=== PATIENT | male | born 1945 | race Hispanic/Latino ===

== ENCOUNTER → 2018-03-25 | Outpatient (CLI) | payer MEDICARE ==
[~2018-03-25] MED LIST: AMLO10TA2 PO; ATOR20TA65 PO; CALC667C10 PO; CHOL100040 PO; FOLI1TAB61 PO; INSLAN SQ; LEVO500T2 PO; LINA5TAB PO; LOSA100T29 PO; METO-391 PO; VITA400C70 PO
== END | disposition home or self-care (01) ==
LOC: RAH 08:36
PROVIDERS: ATTEND Internal Medicine
DX: R10.9 Unspecified abdominal pain (principal)
CPT/HCPCS: 74018

== ENCOUNTER → 2018-08-23 | Outpatient (CLI) | payer MEDICARE ==
[~2018-08-23] MED LIST changes: -AMLO10TA2 PO; +AMLO10TA6 PO; +GLIP5TAB11 PO; -LEVO500T2 PO; +LOSA100T20 PO; -LOSA100T29 PO; -VITA400C70 PO
== END | disposition home or self-care (01) ==
LOC: RAH 15:09
PROVIDERS: ATTEND Internal Medicine
DX: S60.222A Contusion of left hand, initial encounter (principal); S80.01XA Contusion of right knee, initial encounter; X58.XXXA Exposure to other specified factors, initial encounter; Y93.89 Activity, other specified; Y92.89 Other specified places as the place of occurrence of the external cause; Y99.8 Other external cause status
CPT/HCPCS: 73130; 73562

== ENCOUNTER 2018-09-02 18:20 | Observation (INO) | payer MEDICARE ==
[~2018-09-02] VITALS: Ht 152.4 cm; Wt 66.5 kg
[2018-09-02 20:27] LABS: BASOPHILS % (AUTO) 2.5 % (0.0-5.0); EOSINOPHILS % (AUTO) 8.1 % (0.0-8.0); MEAN CORPUSCULAR HEMOGLOBIN 29.5 pg (27.0-33.0); MEAN CORPUSCULAR HGB CONC 32.7 g/dL (32.0-36.0); MEAN CORPUSCULAR VOLUME 90.2 fL (79-99); MONOCYTES % (AUTO) 4.9 % (3.0-13.0); NEUTROPHILS % (AUTO) 71.5 % (40.0-77.0); NUCLEATED RED BLOOD CELLS 0.1 % (0.0-0.19); PLATELET COUNT (AUTO) 152 K/uL (130-400); RED BLOOD CELL COUNT(AUTO) 3.66 MIL/uL (4.50-6.20); RED CELL DISTRIBUTION WIDTH 16.1 % (11.0-15.5); WHITE BLOOD COUNT (AUTO) 8.9 K/uL (4.8-10.8)
[2018-09-02 20:52] LABS: ALBUMIN 4.1 g/dL (3.5-5.0); BILIRUBIN,TOTAL 0.5 mg/dL (0.2-1.0); POTASSIUM 5.1 mmol/L (3.5-5.1); TOTAL PROTEIN, SERUM 8.5 g/dL (6.0-8.3)
[2018-09-02 20:55] LABS: CREATININE 8.1 mg/dL (0.5-1.5)
[2018-09-02 20:59] LABS: CREATINE KINASE, TOTAL 61 U/L (21-232); MYOGLOBIN 308 ng/mL (10-92); TROPONIN I < 0.04 ng/mL (0.00-0.06)
[2018-09-02] MEDS ORDERED: GLUCAGON 1MG KIT 1 MG ML IM PRN ×2 (22:00→23:45)
[2018-09-02] MEDS ORDERED: DEXTROSE 50%-WATER 50 ML DISP.SYRIN IV PRN ×2 (22:00→23:45)
[2018-09-02 22:16] LABS: HEMOGLOBIN A1C 5.5 % (4.0-6.0)
[2018-09-02] MEDS ORDERED: ACETAMINOPHEN 325 MG TAB PO PRN (23:45)
[2018-09-02] MEDS ORDERED: ONDANSETRON HCL MDV 20ML 2 MG/ML VIAL IVP PRN (23:45)
[2018-09-03] MEDS ORDERED: INSULIN R NPO SS1/2 SQ SCH
[2018-09-03] MEDS ORDERED: DEXTROSE 50%-WATER 50 ML DISP.SYRIN IV ONE (02:17)
[2018-09-03 03:40] VITALS: BP 179/92
[2018-09-03 05:47] LABS: BASOPHILS % (AUTO) 0.7 % (0.0-5.0); EOSINOPHILS % (AUTO) 12.4 % (0.0-8.0); HEMATOCRIT 29.5 % (42-54); LYMPHOCYTES % (AUTO) 28.5 % (21.0-51.0); MEAN CORPUSCULAR HEMOGLOBIN 30.7 pg (27.0-33.0); MEAN CORPUSCULAR HGB CONC 33.8 g/dL (32.0-36.0); MEAN CORPUSCULAR VOLUME 90.8 fL (79-99); MONOCYTES % (AUTO) 8.4 % (3.0-13.0); PLATELET COUNT (AUTO) 154 K/uL (130-400); RED BLOOD CELL COUNT(AUTO) 3.24 MIL/uL (4.50-6.20); RED CELL DISTRIBUTION WIDTH 15.8 % (11.0-15.5); WHITE BLOOD COUNT (AUTO) 8.3 K/uL (4.8-10.8)
[2018-09-03 06:11] LABS: ALBUMIN 3.5 g/dL (3.5-5.0); BILIRUBIN,TOTAL 0.4 mg/dL (0.2-1.0); POTASSIUM 5.2 mmol/L (3.5-5.1); TOTAL PROTEIN, SERUM 7.6 g/dL (6.0-8.3)
[2018-09-03 06:32] LABS: CREATININE 9.1 mg/dL (0.5-1.5)
[2018-09-03] MEDS: INSULIN R NPO SS1/2 SQ SCH ×4 (07:02→20:00)
[2018-09-03 08:00] VITALS: BP 165/79
[2018-09-03] MEDS ORDERED: PANTOPRAZOLE SODIUM 40 MG TABLET.DR PO SCH (09:00)
[2018-09-03] MEDS ORDERED: ENOXAPARIN SODIUM 30 MG/0.3 ML SQ SCH (09:00)
[2018-09-03 12:00] VITALS: BP 188/95
[2018-09-03] MEDS: CALCIUM ACETATE 667 MG CAPSULE PO SCH ×2 (12:00→21:45)
[2018-09-03 16:00] VITALS: BP 189/70
[2018-09-03 20:11] VITALS: BP 167/78
[2018-09-03] MEDS ORDERED: ATORVASTATIN CALCIUM 20 MG TABLET PO SCH (21:00)
[2018-09-04] MEDS ORDERED: LINAGLIPTIN 5 MG TABLET PO SCH (09:00)
[2018-09-04] MEDS ORDERED: AMLODIPINE BESYLATE 5 MG TAB PO SCH (09:00)
[2018-09-04] MEDS ORDERED: LOSARTAN 100 MG TABLET PO SCH (09:00)
[2018-09-04] MEDS ORDERED: FOLIC ACID/VITAMIN B COMP W-C 1 MG CAPSULE PO SCH (09:00)
[2018-09-04] MEDS ORDERED: **HM** VIT D3 1000 UNITS PO SCH (09:00)
[2018-09-04] MEDS ORDERED: METOPROLOL TARTRATE 25 MG TAB PO SCH (09:00)
== END 2018-09-03 21:55 | disposition home or self-care (01) ==
LOC: EDH 18:20 → EDHIP 21:55 → UNDOADMOB 21:55 → EDHIP 23:15 → 3DH 09-03 00:52
PROVIDERS: ADMIT Internal Medicine Critical Care Medicine; ATTEND Internal Medicine Critical Care Medicine
DX: E16.2 Hypoglycemia, unspecified (principal); I12.0 Hypertensive chronic kidney disease with stage 5 chronic kidney disease or end stage renal disease; N18.6 End stage renal disease; Z99.2 Dependence on renal dialysis
CPT/HCPCS: 36415 ×2; 80053 ×2; 82550; 82948 ×8; 83036; 83874; 84484; 85025 ×2; 93005; 96372; 99284; G0257; G0378 ×23; J1815; J7070; 90935

== ENCOUNTER 2018-11-01 19:37 | Inpatient (IN) | payer MEDICARE ==
[~2018-11-01] VITALS: Ht 152.4 cm; Wt 61.8 kg
[~2018-11-01 19:37] MED LIST changes: -AMLO10TA6 PO; +AMLO10TA7 PO; -GLIP5TAB11 PO; -INSLAN SQ; -LOSA100T20 PO; +LOSA100T58 PO
[2018-11-01 20:16] LABS: BASOPHILS % (AUTO) 0.2 % (0.0-5.0); EOSINOPHILS % (AUTO) 0.5 % (0.0-8.0); HEMATOCRIT 30.4 % (42-54); LYMPHOCYTES % (AUTO) 3.9 % (21.0-51.0); MEAN CORPUSCULAR HEMOGLOBIN 30.2 pg (27.0-33.0); MEAN CORPUSCULAR HGB CONC 32.5 g/dL (32.0-36.0); MEAN CORPUSCULAR VOLUME 92.9 fL (79-99); MONOCYTES % (AUTO) 0.8 % (3.0-13.0); NEUTROPHILS % (AUTO) 94.6 % (40.0-77.0); PLATELET COUNT (AUTO) 210 K/uL (130-400); RED BLOOD CELL COUNT(AUTO) 3.28 MIL/uL (4.50-6.20); RED CELL DISTRIBUTION WIDTH 17.6 % (11.0-15.5); WHITE BLOOD COUNT (AUTO) 13.7 K/uL (4.8-10.8)
[2018-11-01 20:27] LABS: INR 0.96 (0.85-1.15); PARTIAL THROMBOPLASTIN TIME 27.8 SEC (26.3-35.5); PROTHROMBIN TIME 10.1 SEC (9.6-11.6)
[2018-11-01 20:51] LABS: ALANINE AMINOTRANSFERASE 33 U/L (12-78); ALBUMIN 3.8 g/dL (3.5-5.0); ASPARTATE AMINOTRANSFERASE 43 U/L (10-37); BILIRUBIN,TOTAL 0.6 mg/dL (0.2-1.0); CARBON DIOXIDE 24 mmol/L (21-32); CHLORIDE 93 mmol/L (101-111); CREATINE KINASE, TOTAL 140 U/L (21-232); CREATININE 6.7 mg/dL (0.5-1.5); GLOMERULAR FILTR. RATE CALC 9 mL/min (>60); MYOGLOBIN 421 ng/mL (10-92); POTASSIUM 5.8 mmol/L (3.5-5.1); SODIUM SERUM 132 mmol/L (136-145); TOTAL PROTEIN, SERUM 8.1 g/dL (6.0-8.3); TROPONIN I < 0.04 ng/mL (0.00-0.06); UREA NITROGEN, BLOOD 34 mg/dL (7-18)
[2018-11-01 21:04] LABS: GLUCOSE,RANDOM 487 mg/dL (70-105)
[2018-11-01] MEDS ORDERED: INSULIN HUMULIN R 100 UNIT/ML 3ML ONE (21:27)
[2018-11-01] MEDS ORDERED: ZOSYN 3.375GM+NS 50ML 50 ML IV ONE (23:20)
[2018-11-01] MEDS ORDERED: VANCOMYCIN 1GM+NS 250ML 500 ML IV ONE (23:48)
[2018-11-02] VITALS (7 sets, daily range): BP systolic 102–175; BP diastolic 59–91
--- NOTE | 2018-11-02 00:15 | NUR ---
Patient arrived on unit. Denies chest pain. No longer feeling sob with use of 2L NC. Per orders patient is to have HD in am. [facility] ED nurse stated dialysis nurse is aware. Consent signed. Oriented patient and wfe to the room. Call light within reach. IV Vanco running. Fistula to REMA- thrill present. Patient has a non productive cough.
[2018-11-02] MEDS ORDERED: VANCOMYCIN PROTOCOL PER PHARMACY IV SCH (01:30)
[2018-11-02] MEDS ORDERED: ACETAMINOPHEN 325 MG TAB PO PRN ×2 (01:45→12:30)
[2018-11-02] MEDS ORDERED: VANCOMYCIN 1.5 GM in SODIUM CHLORIDE 0.9% 250 ML IV SCH (01:45)
[2018-11-02] MEDS ORDERED: GLUCAGON 1MG KIT 1 MG ML IM PRN (01:45)
[2018-11-02] MEDS ORDERED: DEXTROSE 50%-WATER 50 ML DISP.SYRIN IV PRN (01:45)
[2018-11-02] MEDS ORDERED: ONDANSETRON HCL MDV 20ML 2 MG/ML VIAL IVP PRN (01:45)
[2018-11-02] MEDS: ZOSYN 3.375GM+NS 50ML 50 ML IV SCH ×2 (02:00→14:36)
[2018-11-02] MEDS: INSULIN R PO SS1/2 SQ SCH ×4 (06:15→21:18)
[2018-11-02] MEDS: ENOXAPARIN SODIUM 30 MG/0.3 ML SQ SCH ×2 (09:00→12:26)
[2018-11-02] MEDS: FAMOTIDINE/PF 20 MG/2 ML VIAL IV SCH ×2 (09:00→12:26)
--- NOTE | 2018-11-02 09:10 | NUR ---
RESTING IN BED WITH HOB AT 30 DEGREES, RESP.'S EVEN AND UNLABORED. AAOX3. DENIES ANY CURRENT SOB, DENIES ANY CURRENT PAIN. RECEIVING HD AT PRESENT TIMED. CALL LIGHT WITHIN REACH. SPOUSE AT BEDSIDE.
--- NOTE | 2018-11-02 10:45 | NUR ---
HD COMPLETED. TOLERATED W/O C/O. CALL LIGHT WITHIN REACH. SPOUSE AT BEDSIDE.
[2018-11-02] MEDS ORDERED: SODIUM CHLORIDE 0.9% 1000ML 1,000 ML IV PRN (12:15)
[2018-11-02] MEDS ORDERED: LIDOCAINE HCL 1% 10 ML VIAL MISC SCH (12:15)
[2018-11-02] MEDS ORDERED: 0.9% SODIUM CHLORIDE 250 ML IV BAG IV PRN (12:15)
[2018-11-02] MEDS: CALCIUM ACETATE 667 MG CAPSULE PO SCH ×2 (15:13→20:38)
--- NOTE | 2018-11-02 15:14 | NUR ---
DC PLAN VISITED WITH PATIENT. PATIENT LIVES WITH SPOUSE. INDEPENDENT ABLE TO PERFORM ADL'S. PROVIDER 8 HOURS A DAY. PATIENT HAS NO DME'S. FEELS SAFE TO RETURN HOME. Addendum: 11/02/18 at 1515 by YOUNG CALLAHAN RN CM Amended: Links added.
--- NOTE | 2018-11-02 15:30 | NUR ---
RESTING IN BED WATCHING TELEVISION. SPOUSE AT BEDSIDE. CALL LIGHT WITHIN PT.'S REACH.
[2018-11-02] MEDS ORDERED: VANCOMYCIN 1GM+NS 250ML 250 ML IV SCH ×2 (18:00→19:10)
[2018-11-02] MEDS: ATORVASTATIN CALCIUM 20 MG TABLET PO SCH (20:38)
[2018-11-02] MEDS: METOPROLOL TARTRATE 25 MG TAB PO SCH (20:38)
[2018-11-03] MEDS: ZOSYN 3.375GM+NS 50ML 50 ML IV SCH ×2 (01:51→14:00)
[2018-11-03 03:00] VITALS: BP 165/84
[2018-11-03 03:39] LABS: HEMATOCRIT 29.2 % (42-54); MEAN CORPUSCULAR HEMOGLOBIN 30.7 pg (27.0-33.0); MEAN CORPUSCULAR HGB CONC 33.4 g/dL (32.0-36.0); MEAN CORPUSCULAR VOLUME 91.9 fL (79-99); PLATELET COUNT (AUTO) 176 K/uL (130-400); RED BLOOD CELL COUNT(AUTO) 3.17 MIL/uL (4.50-6.20); RED CELL DISTRIBUTION WIDTH 17.5 % (11.0-15.5); WHITE BLOOD COUNT (AUTO) 10.2 K/uL (4.8-10.8)
[2018-11-03 03:45] LABS: EOSINOPHILS % (MANUAL) 3 % (1-6); LYMPHOCYTES % (MANUAL) 29 % (22-44); MAN.DIFF COMMENT-IMPRESSION MANUAL DIFFERENTIAL; MONOCYTES % (MANUAL) 7 % (2-9); PLATELET MORPHOLOGY COMMENT ADEQUATE; SEGMENTED NEUTROPHILS % 61 % (40-70)
[2018-11-03 03:55] LABS: CREATININE 6.1 mg/dL (0.5-1.5); PHOSPHORUS 3.9 mg/dL (2.5-4.9); POTASSIUM 3.5 mmol/L (3.5-5.1)
[2018-11-03] MEDS: INSULIN R PO SS1/2 SQ SCH ×4 (05:34→20:38)
[2018-11-03 07:34] VITALS: BP 164/76
[2018-11-03] MEDS: FAMOTIDINE/PF 20 MG/2 ML VIAL IV SCH (09:00)
[2018-11-03] MEDS: LINAGLIPTIN 5 MG TABLET PO SCH (09:00)
[2018-11-03] MEDS: ENOXAPARIN SODIUM 30 MG/0.3 ML SQ SCH ×2 (09:00→17:08)
[2018-11-03] MEDS: CALCIUM ACETATE 667 MG CAPSULE PO SCH ×3 (09:00→20:02)
[2018-11-03] MEDS: AMLODIPINE BESYLATE 5 MG TAB PO SCH (09:00)
[2018-11-03] MEDS: LOSARTAN 100 MG TABLET PO SCH ×2 (09:00→17:07)
[2018-11-03] MEDS: FOLIC ACID/VITAMIN B COMP W-C 1 MG CAPSULE PO SCH (09:00)
[2018-11-03] MEDS: ***HM***(Cholecalciferol (Vitamin D3) (Vitamin D3) 1,000 UNIT) PO SCH (09:00)
[2018-11-03] MEDS: METOPROLOL TARTRATE 25 MG TAB PO SCH ×2 (09:00→20:02)
--- NOTE | 2018-11-03 09:00 | NUR ---
RESTING IN BED WITH HOB AT 30 DEGREES, RESP.'S EVEN AND UNLABORED. AAOX3, DENIES ANY CURRENT SOB, DENIES ANY CURRENT PAIN. STATES FEELING "BETTER TODAY." SPOUSE AT BEDSIDE STATES," HE EVEN WENT TO THE RESTROOM BY HIMSELF EARLIER AND WAS DANCING RIGHT HERE [POINTS TO AREA IN FRONT OF BED-SAMMARINESE]." COMPLETE ASSESSMENT DONE. CALL LIGHT WITHIN REACH, VERBALIZED ABILITY TO USE. BED LOW, SIDE RAILS UP X2.
[2018-11-03 09:03] LABS: APPEARANCE,URINE Cloudy (CLEAR); BILIRUBIN,URINE Negative (NEGATIVE); COLOR,URINE Dark Yellow (YELLOW); GLUCOSE, URINE (UA) 500 mg/dL (NEGATIVE); KETONES,URINE Trace mg/dL (NEGATIVE); LEUKOCYTE ESTERASE ,URINE Trace (NEGATIVE); NITRATE,URINE Negative (NEGATIVE); OCCULT BLOOD,URINE Trace (NEGATIVE); PH,URINE >=9.0 (5.0-8.0); PROTEIN,URINE >=1000 (NEGATIVE)
[2018-11-03 09:27] LABS: BACTERIA,URINE Rare /HPF (None Seen); RBC,URINE 0-1 /HPF (0-1); SQUAMOUS EPITHELIAL CELL,UR Rare /HPF (0-2); WBC,URINE 0-1 /HPF (0-1)
[2018-11-03 11:29] VITALS: BP 161/92
--- NOTE | 2018-11-03 13:05 | NUR ---
DR. BERRIOS IN ROOM SPEAKING WITH PT. AND PT.'S SPOUSE AT BEDSIDE RE:PLAN OF CARE.
--- NOTE | 2018-11-03 14:30 | NUR ---
RECEIVING HD. TOLERATING W/O C/O. SPOUSE AT BEDSIDE.
[2018-11-03 16:16] VITALS: BP 141/74
--- NOTE | 2018-11-03 16:25 | NUR ---
HD COMPLETED. TOLERATED W/O C/O. CALL LIGHT WITHIN REACH. SPOUSE AT BEDSIDE.
[2018-11-03] MEDS: GUAIFENESIN SUGAR-FREE 100 MG/5 ML UDCUP PO PRN (17:06)
[2018-11-03 19:00] VITALS: BP 160/81
[2018-11-03] MEDS: ATORVASTATIN CALCIUM 20 MG TABLET PO SCH (20:02)
[2018-11-03] MEDS ORDERED: EPOETIN ALFA 10,000 UNIT/ML VIAL SQ SCH (21:00)
[2018-11-03 23:00] VITALS: BP 141/78
[2018-11-04] VITALS (7 sets, daily range): BP systolic 158–172; BP diastolic 66–91
[2018-11-04] MEDS: ZOSYN 3.375GM+NS 50ML 50 ML IV SCH ×2 (02:39→13:41)
[2018-11-04 03:35] LABS: HEMATOCRIT 30.1 % (42-54); MEAN CORPUSCULAR HEMOGLOBIN 30.9 pg (27.0-33.0); MEAN CORPUSCULAR HGB CONC 33.5 g/dL (32.0-36.0); MEAN CORPUSCULAR VOLUME 92.1 fL (79-99); NUCLEATED RED BLOOD CELLS 0.1 % (0.0-0.19); PLATELET COUNT (AUTO) 200 K/uL (130-400); RED BLOOD CELL COUNT(AUTO) 3.26 MIL/uL (4.50-6.20); RED CELL DISTRIBUTION WIDTH 16.7 % (11.0-15.5); WHITE BLOOD COUNT (AUTO) 9.8 K/uL (4.8-10.8)
[2018-11-04 03:51] LABS: PHOSPHORUS 2.9 mg/dL (2.5-4.9); POTASSIUM 3.7 mmol/L (3.5-5.1)
[2018-11-04] MEDS: INSULIN R PO SS1/2 SQ SCH ×4 (06:09→21:00)
[2018-11-04] MEDS: ***HM***(Cholecalciferol (Vitamin D3) (Vitamin D3) 1,000 UNIT) PO SCH (09:00)
[2018-11-04] MEDS: LOSARTAN 100 MG TABLET PO SCH (10:59)
[2018-11-04] MEDS: AMLODIPINE BESYLATE 5 MG TAB PO SCH (10:59)
[2018-11-04] MEDS: FAMOTIDINE/PF 20 MG/2 ML VIAL IV SCH (10:59)
[2018-11-04] MEDS: CALCIUM ACETATE 667 MG CAPSULE PO SCH ×3 (11:00→21:11)
[2018-11-04] MEDS: LINAGLIPTIN 5 MG TABLET PO SCH (11:01)
[2018-11-04] MEDS: ENOXAPARIN SODIUM 30 MG/0.3 ML SQ SCH (11:01)
[2018-11-04] MEDS: FOLIC ACID/VITAMIN B COMP W-C 1 MG CAPSULE PO SCH (11:01)
[2018-11-04] MEDS: METOPROLOL TARTRATE 25 MG TAB PO SCH ×2 (11:01→21:11)
[2018-11-04] MEDS: ATORVASTATIN CALCIUM 20 MG TABLET PO SCH (21:11)
[2018-11-04] MEDS: GUAIFENESIN SUGAR-FREE 100 MG/5 ML UDCUP PO PRN (21:15)
[2018-11-05] MEDS: ZOSYN 3.375GM+NS 50ML 50 ML IV SCH ×2 (02:41→14:51)
[2018-11-05 03:33] VITALS: BP 163/84
[2018-11-05 03:58] LABS: EOSINOPHILS % (AUTO) 5.7 % (0.0-8.0); HEMATOCRIT 31.8 % (42-54); LYMPHOCYTES % (AUTO) 26.2 % (21.0-51.0); MEAN CORPUSCULAR HEMOGLOBIN 31.9 pg (27.0-33.0); MEAN CORPUSCULAR HGB CONC 34.4 g/dL (32.0-36.0); MEAN CORPUSCULAR VOLUME 92.6 fL (79-99); MONOCYTES % (AUTO) 12.6 % (3.0-13.0); NEUTROPHILS % (AUTO) 54.5 % (40.0-77.0); NUCLEATED RED BLOOD CELLS 0.1 % (0.0-0.19); PLATELET COUNT (AUTO) 200 K/uL (130-400); RED BLOOD CELL COUNT(AUTO) 3.44 MIL/uL (4.50-6.20); RED CELL DISTRIBUTION WIDTH 17.1 % (11.0-15.5); WHITE BLOOD COUNT (AUTO) 9.3 K/uL (4.8-10.8)
[2018-11-05 04:18] LABS: CREATININE 7.3 mg/dL (0.5-1.5); POTASSIUM 4.1 mmol/L (3.5-5.1)
[2018-11-05] MEDS: INSULIN R PO SS1/2 SQ SCH ×4 (07:30→21:00)
[2018-11-05 07:43] VITALS: BP 189/87
[2018-11-05] MEDS: CALCIUM ACETATE 667 MG CAPSULE PO SCH ×3 (07:50→17:03)
[2018-11-05] MEDS: ***HM***(Cholecalciferol (Vitamin D3) (Vitamin D3) 1,000 UNIT) PO SCH (09:00)
[2018-11-05] MEDS: FOLIC ACID/VITAMIN B COMP W-C 1 MG CAPSULE PO SCH (10:04)
[2018-11-05] MEDS: FAMOTIDINE/PF 20 MG/2 ML VIAL IV SCH (10:04)
[2018-11-05] MEDS: ENOXAPARIN SODIUM 30 MG/0.3 ML SQ SCH (10:05)
[2018-11-05 11:22] VITALS: BP 183/89
[2018-11-05] MEDS: REGADENOSON 0.4 MG/5 ML PF SYG IVP SCH ×2 (12:30→15:17)
[2018-11-05] MEDS: LOSARTAN 100 MG TABLET PO SCH (14:50)
[2018-11-05] MEDS: LINAGLIPTIN 5 MG TABLET PO SCH (14:50)
[2018-11-05] MEDS: AMLODIPINE BESYLATE 5 MG TAB PO SCH (14:51)
[2018-11-05] MEDS: METOPROLOL TARTRATE 25 MG TAB PO SCH ×2 (14:51→21:35)
[2018-11-05 16:21] VITALS: BP 154/72
[2018-11-05] MEDS ORDERED: VANCOMYCIN 1GM+NS 250ML 250 ML IV SCH (18:00)
[2018-11-05 19:00] VITALS: BP 166/84
[2018-11-05] MEDS: ATORVASTATIN CALCIUM 20 MG TABLET PO SCH (21:35)
--- NOTE | 2018-11-05 21:36 | NUR ---
Patient received Dialysis. 2.5 L off. Tolerated well.
[2018-11-05 23:00] VITALS: BP 136/65
--- NOTE | 2018-11-06 02:39 | NUR ---
Patient receiving IV antibiotics. Denies N/V/D. Alert and oriented. No chest pain or sob. IV flushing well. L arm fistula CDI, No oozing.
[2018-11-06] MEDS: ZOSYN 3.375GM+NS 50ML 50 ML IV SCH ×2 (02:53→14:12)
[2018-11-06 03:00] VITALS: BP 176/86
[2018-11-06 03:43] LABS: HEMATOCRIT 30.7 % (42-54); MEAN CORPUSCULAR HEMOGLOBIN 30.8 pg (27.0-33.0); MEAN CORPUSCULAR VOLUME 93.4 fL (79-99); PLATELET COUNT (AUTO) 208 K/uL (130-400); RED BLOOD CELL COUNT(AUTO) 3.29 MIL/uL (4.50-6.20); RED CELL DISTRIBUTION WIDTH 16.6 % (11.0-15.5); WHITE BLOOD COUNT (AUTO) 9.9 K/uL (4.8-10.8)
[2018-11-06 03:53] LABS: ALBUMIN 3.2 g/dL (3.5-5.0); BILIRUBIN,TOTAL 0.5 mg/dL (0.2-1.0); CREATININE 5.4 mg/dL (0.5-1.5); POTASSIUM 3.5 mmol/L (3.5-5.1); TOTAL PROTEIN, SERUM 7.2 g/dL (6.0-8.3); URIC ACID 3.1 mg/dL (2.6-7.2)
[2018-11-06 05:08] VITALS: BP 168/79
[2018-11-06] MEDS: INSULIN R PO SS1/2 SQ SCH ×4 (06:11→21:00)
[2018-11-06 07:39] VITALS: BP 164/74
[2018-11-06] MEDS: CALCIUM ACETATE 667 MG CAPSULE PO SCH ×3 (08:03→16:55)
[2018-11-06] MEDS: ***HM***(Cholecalciferol (Vitamin D3) (Vitamin D3) 1,000 UNIT) PO SCH (09:00)
[2018-11-06] MEDS: AMLODIPINE BESYLATE 5 MG TAB PO SCH (09:11)
[2018-11-06] MEDS: LINAGLIPTIN 5 MG TABLET PO SCH (09:11)
[2018-11-06] MEDS: ENOXAPARIN SODIUM 30 MG/0.3 ML SQ SCH (09:11)
[2018-11-06] MEDS: FOLIC ACID/VITAMIN B COMP W-C 1 MG CAPSULE PO SCH (09:11)
[2018-11-06] MEDS: METOPROLOL TARTRATE 25 MG TAB PO SCH ×2 (09:11→20:33)
[2018-11-06] MEDS: LOSARTAN 100 MG TABLET PO SCH (09:11)
[2018-11-06] MEDS: FAMOTIDINE/PF 20 MG/2 ML VIAL IV SCH (09:11)
[2018-11-06 11:17] VITALS: BP 166/81
[2018-11-06 16:23] VITALS: BP 171/76
[2018-11-06] MEDS: ATORVASTATIN CALCIUM 20 MG TABLET PO SCH (20:33)
[2018-11-06 23:39] VITALS: BP 162/87
[2018-11-07] MEDS: ZOSYN 3.375GM+NS 50ML 50 ML IV SCH ×2 (01:40→13:13)
[2018-11-07 03:44] LABS: MEAN CORPUSCULAR HEMOGLOBIN 31.3 pg (27.0-33.0); MEAN CORPUSCULAR HGB CONC 33.5 g/dL (32.0-36.0); MEAN CORPUSCULAR VOLUME 93.3 fL (79-99); NUCLEATED RED BLOOD CELLS 0.1 % (0.0-0.19); PLATELET COUNT (AUTO) 208 K/uL (130-400); RED BLOOD CELL COUNT(AUTO) 3.32 MIL/uL (4.50-6.20); RED CELL DISTRIBUTION WIDTH 17.5 % (11.0-15.5); WHITE BLOOD COUNT (AUTO) 10.8 K/uL (4.8-10.8)
[2018-11-07 03:52] VITALS: BP 169/79
[2018-11-07 03:57] LABS: HEMOGLOBIN A1C 7.4 % (4.0-6.0)
[2018-11-07 04:07] LABS: POTASSIUM 3.5 mmol/L (3.5-5.1)
[2018-11-07 04:11] LABS: CREATININE 8.3 mg/dL (0.5-1.5)
[2018-11-07] MEDS: INSULIN R PO SS1/2 SQ SCH ×3 (07:30→16:30)
[2018-11-07 07:39] VITALS: BP 180/89
[2018-11-07] MEDS: CALCIUM ACETATE 667 MG CAPSULE PO SCH ×3 (08:00→17:00)
[2018-11-07] MEDS: AMLODIPINE BESYLATE 5 MG TAB PO SCH (08:37)
[2018-11-07] MEDS: LINAGLIPTIN 5 MG TABLET PO SCH (08:37)
[2018-11-07] MEDS: FAMOTIDINE/PF 20 MG/2 ML VIAL IV SCH (08:37)
[2018-11-07] MEDS: METOPROLOL TARTRATE 25 MG TAB PO SCH (08:37)
[2018-11-07] MEDS: LOSARTAN 100 MG TABLET PO SCH (08:37)
[2018-11-07] MEDS: FOLIC ACID/VITAMIN B COMP W-C 1 MG CAPSULE PO SCH (08:37)
[2018-11-07] MEDS: ENOXAPARIN SODIUM 30 MG/0.3 ML SQ SCH (08:38)
[2018-11-07] MEDS: ***HM***(Cholecalciferol (Vitamin D3) (Vitamin D3) 1,000 UNIT) PO SCH (08:40)
[2018-11-07] MEDS ORDERED: ASPIRIN 81 MG EC TAB PO SCH (09:00)
[2018-11-07 12:00] VITALS: BP 178/74
[2018-11-07] MEDS ORDERED: AMLODIPINE BESYLATE 5 MG TAB PO SCH (12:08)
--- NOTE | 2018-11-07 14:20 | NUR ---
DR. BERRIOS IN ROOM SPEAKING WITH PT. AND PT.'S SPOUSE AT BEDSIDE EXPLAINING PLAN OF CARE, THIS NURSE SPINE SURGEON. ALL QUESTIONS ANSWERED, PT. AND SPOUSE VERBALIZED MUTUAL UNDERSTANDING.
[2018-11-07] MEDS ORDERED: ASPI-555 PO (14:31)
[2018-11-07] MEDS ORDERED: LEVO500T2 PO (14:31)
--- NOTE | 2018-11-07 14:34 | NUR ---
DR. Adriana BUCKLEY IN ROOM SPEAKING WITH PT. AND PT.'S SPOUSE AT BEDSIDE EXPLAINING PLAN OF CARE. ALL QUESTIONS ANSWERED, PT. AND SPOUSE AT BEDSIDE VERBALIZED MUTUAL UNDERSTANDING.
[2018-11-07 15:04] VITALS: BP 157/92
--- NOTE | 2018-11-07 16:35 | NUR ---
HL REMOVED, CATHETER INTACT. EXTENSIVE DISCHARGE INSTRUCTIONS GIVEN TO PT. AND PT.'S SPOUSE AT BEDSIDE, ALL QUESTIONS ANSWERED AND VERBALIZED MUTUAL UNDERSTANDING.
[2018-11-08] MEDS ORDERED: AMLODIPINE BESYLATE 5 MG TAB PO SCH (09:00)
== END 2018-11-07 17:24 | disposition home or self-care (01) | DRG 280 ==
LOC: EDH 19:37 → EDHIP 23:05 → 2AH 11-02 00:18
PROVIDERS: ADMIT Internal Medicine Nephrology; ATTEND Internal Medicine Nephrology
PROC: 5A1D70Z Performance of Urinary Filtration, Intermittent, Less than 6 Hours Per Day (ICD-10-PCS; principal; 2018-11-02)
PROC: 5A1D70Z Performance of Urinary Filtration, Intermittent, Less than 6 Hours Per Day (ICD-10-PCS; 2018-11-03)
PROC: 5A1D70Z Performance of Urinary Filtration, Intermittent, Less than 6 Hours Per Day (ICD-10-PCS; 2018-11-05)
DX: I21.9 Acute myocardial infarction, unspecified (principal); J18.1 Lobar pneumonia, unspecified organism; I50.23 Acute on chronic systolic (congestive) heart failure; N18.6 End stage renal disease; I12.0 Hypertensive chronic kidney disease with stage 5 chronic kidney disease or end stage renal disease; I42.9 Cardiomyopathy, unspecified; I13.2 Hypertensive heart and chronic kidney disease with heart failure and with stage 5 chronic kidney disease, or end stage renal disease; E11.22 Type 2 diabetes mellitus with diabetic chronic kidney disease; Z87.01 Personal history of pneumonia (recurrent); D64.9 Anemia, unspecified; E78.5 Hyperlipidemia, unspecified; E11.21 Type 2 diabetes mellitus with diabetic nephropathy; E11.51 Type 2 diabetes mellitus with diabetic peripheral angiopathy without gangrene; E87.5 Hyperkalemia; C61 Malignant neoplasm of prostate; F41.9 Anxiety disorder, unspecified; I25.10 Atherosclerotic heart disease of native coronary artery without angina pectoris; I25.5 Ischemic cardiomyopathy; I44.7 Left bundle-branch block, unspecified; I25.2 Old myocardial infarction; Z99.2 Dependence on renal dialysis; Z87.891 Personal history of nicotine dependence; Z83.3 Family history of diabetes mellitus
CPT/HCPCS: 36415; 71045; 78452; 80048; 80053; 80061; 80202; 81001; 82550; 82948; 83036; 83605; 83874; 84100; 84484; 84550; 85025; 85027; 85610; 85730; 87040; 87088; 90935; 93005; 93017; 93306; 96374; 97039; A9500; G0378; J0885; J1650; J1815; J2543; J2785; J3370; J3490; J7030

== ENCOUNTER 2018-12-05 05:30 | Day surgery (SDC) | payer MEDICARE ==
[2018-12-02 12:23] LABS: BASOPHILS % (AUTO) 0.5 % (0.0-5.0); MEAN CORPUSCULAR VOLUME 94.9 fL (79-99); WHITE BLOOD COUNT (AUTO) 9.8 K/uL (4.8-10.8)
[2018-12-02 12:25] LABS: BILIRUBIN,URINE NEGATIVE (NEGATIVE); COLOR,URINE YELLOW (YELLOW); GLUCOSE, URINE (UA) 250 mg/dL (NEGATIVE); KETONES,URINE NEGATIVE (NEGATIVE); LEUKOCYTE ESTERASE ,URINE SMALL (NEGATIVE); NITRATE,URINE NEGATIVE (NEGATIVE); OCCULT BLOOD,URINE SMALL (NEGATIVE); PH,URINE >=9.0 (5.0-8.0); PROTEIN,URINE >=300 (NEGATIVE); UROBILINOGEN,URINE 0.2 mg/dL (0.2-1.0)
[2018-12-02 12:29] VITALS: BP 186/78
[2018-12-02 12:38] LABS: INR 0.91 (0.85-1.15); PARTIAL THROMBOPLASTIN TIME 28.9 SEC (26.3-35.5); PROTHROMBIN TIME 9.6 SEC (9.6-11.6)
[2018-12-02 12:43] LABS: POTASSIUM 6.6 mmol/L (3.5-5.1)
[2018-12-02 12:46] LABS: CREATININE 8.4 mg/dL (0.5-1.5)
[2018-12-02 12:53] LABS: APPEARANCE,URINE SLIGHTLY CLOUDY (CLEAR)
[2018-12-02 12:53] LABS: EOSINOPHILS % (AUTO) 9.1 % (0.0-8.0); LYMPHOCYTES % (AUTO) 30.2 % (21.0-51.0); MEAN CORPUSCULAR HGB CONC 32.7 g/dL (32.0-36.0); MONOCYTES % (AUTO) 6.9 % (3.0-13.0); NEUTROPHILS % (AUTO) 53.3 % (40.0-77.0); PLATELET COUNT (AUTO) 141 K/uL (130-400); RED BLOOD CELL COUNT(AUTO) 4.11 MIL/uL (4.50-6.20); RED CELL DISTRIBUTION WIDTH 15.9 % (11.0-15.5)
[2018-12-02 13:04] LABS: BACTERIA,URINE Few /HPF (None Seen); RBC,URINE 0-1 /HPF (0-1); SQUAMOUS EPITHELIAL CELL,UR Rare /HPF (0-2)
--- NOTE | 2018-12-02 13:21 | NUR ---
NOTE REPORTED CRITICAL K+ , NA ,AND UA TO SOFIA CANTOR. REPEAT BMP AM OF PROCEDURE AND CALL IN SCRIPT FOR KAYXELATE 30GM. SHE NOTIFIED DR VEGA AND HE WANTS PT TO GO GET DIALYZED TODAY IN ADDITION TO THE KAYXELATE. PATIENT HAS AGREED , AND I HAVE ARRANGED WITH THE DIALYSIS CENTER FOR PATIENT TO HAVE A CHAIR TODAY.
--- NOTE | 2018-12-02 16:18 | NUR ---
NOTE PHARMACY CALLED TO INFORM ME THEY DONT CARRY KAYXALATE, THEY HAVE BEEN OUT OF STOCK FOR MONTHS. CALLED DR VEGA AND HE SAID IT WAS FINE SINCE PATIENT DID GO FOR AN EXTRA DIALYSIS DAY TODAY.
[~2018-12-05] VITALS: Ht 162.6 cm; Wt 63.9 kg
[2018-12-05] VITALS (9 sets, daily range): BP systolic 144–184; BP diastolic 66–77
[~2018-12-05 05:30] MED LIST changes: +ASPI-555 PO; +INSU3INS3 SQ; +SEVE800 PO
[2018-12-05 06:36] LABS: POTASSIUM 4.6 mmol/L (3.5-5.1)
[2018-12-05 06:47] LABS: CREATININE 8.3 mg/dL (0.5-1.5)
[2018-12-05] MEDS ORDERED: SODIUM CHLORIDE 0.9% 1000ML 1,000 ML IV ONE (07:19)
[2018-12-05] MEDS ORDERED: 0.9 % SODIUM CHLORIDE 1,000 ML IV SCH (08:00)
[2018-12-05] MEDS ORDERED: BIVALIRUDIN 250 MG/VIAL IV ONE (08:25)
[2018-12-05] MEDS ORDERED: HEPARIN SODIUM 1000UNIT/ML 10ML VIAL ONE (08:26)
[2018-12-05] MEDS ORDERED: LIDOCAINE HCL 2% 20ML ONE (08:26)
[2018-12-05] MEDS ORDERED: NITROGLYCERIN 5 MG/ML 10 ML VIAL IV ONE (08:26)
[2018-12-05] MEDS ORDERED: IOHEXOL-350 50ML VIAL IV ONE ×2 (08:28→09:34)
[2018-12-05] MEDS ORDERED: IOHEXOL 350 MG/ML 100ML INFUS..BTL IV ONE (08:28)
[2018-12-05] MEDS ORDERED: HYDRALAZINE HCL 20 MG/ML VIAL ONE (09:31)
[2018-12-05] MEDS ORDERED: METOPROLOL TARTRATE 1 MG/ML 5ML VIAL IV ONE (09:37)
[2018-12-05] MEDS ORDERED: ACETAMINOPHEN-CODEINE 300/30MG TAB PO PRN ×2 (10:00)
[2018-12-05] MEDS ORDERED: HYDRALAZINE HCL 20 MG/ML VIAL IV PRN (10:00)
[2018-12-05 11:03] LABS: CHOLESTEROL 94 mg/dL (<200); HDL CHOLESTEROL 34 mg/dL (29-71); LDL DIRECT 46 mg/dL (0-99); TRIGLYCERIDES 98 mg/dL (30-200)
--- NOTE | 2018-12-05 14:07 | NUR ---
PT TOLERATED PROCEDURE WELL, NO C/O PAIN TO RT GROIN, PT ABLE TO EAT, AMBULATE TO RESTROOM NO DIFFICULTY, ABLE TO VOID. DRESSING TO RT GROIN IN D/I NO HEMATOMA. PT POST CARE INSTRUCTIONS EXPLAINED TO ADN PT BOTH STATED UNDERSTANDING. PT TAKEN OUT IN A WHEELCHAIR TO CAR , DRIVEN HOME BY .
== END 2018-12-05 14:07 | disposition home or self-care (01) ==
LOC: DAH 05:30 → CLH 05:30
PROVIDERS: ATTEND Internal Medicine Cardiovascular Disease
DX: I25.10 Atherosclerotic heart disease of native coronary artery without angina pectoris (principal); I13.2 Hypertensive heart and chronic kidney disease with heart failure and with stage 5 chronic kidney disease, or end stage renal disease; E11.22 Type 2 diabetes mellitus with diabetic chronic kidney disease; N18.6 End stage renal disease; I50.42 Chronic combined systolic (congestive) and diastolic (congestive) heart failure; Z99.2 Dependence on renal dialysis; E11.51 Type 2 diabetes mellitus with diabetic peripheral angiopathy without gangrene; Z85.46 Personal history of malignant neoplasm of prostate; I44.7 Left bundle-branch block, unspecified; Z79.899 Other long term (current) drug therapy; Z79.01 Long term (current) use of anticoagulants; Z79.4 Long term (current) use of insulin; Z79.84 Long term (current) use of oral hypoglycemic drugs; I25.5 Ischemic cardiomyopathy; E78.5 Hyperlipidemia, unspecified
CPT/HCPCS: 36415 ×2; 71045; 80048 ×2; 80061; 81001; 82948 ×2; 85025; 85610; 85730; 93005; 93458; A4606; C1760; C1894; J0360; J1644; J3490 ×3; J7030; Q9965; Q9967 ×3; J0583

== ENCOUNTER → 2018-12-27 | Outpatient (CLI) | payer MEDICARE | END | disposition home or self-care (01) | LOC: RAH 10:19 | PROVIDERS: ATTEND Internal Medicine | DX: S00.83XA Contusion of other part of head, initial encounter (principal); J34.2 Deviated nasal septum; X58.XXXA Exposure to other specified factors, initial encounter; Y93.89 Activity, other specified; Y92.89 Other specified places as the place of occurrence of the external cause; Y99.8 Other external cause status | CPT/HCPCS: 70150 ==

== ENCOUNTER 2018-12-28 16:36 | Emergency (ER) | payer MEDICARE ==
[2018-12-28 18:36] LABS: BASOPHILS % (AUTO) 0.8 % (0.0-5.0); EOSINOPHILS % (AUTO) 14.5 % (0.0-8.0); HEMATOCRIT 37.1 % (42-54); LYMPHOCYTES % (AUTO) 30.4 % (21.0-51.0); MEAN CORPUSCULAR HEMOGLOBIN 30.4 pg (27.0-33.0); MEAN CORPUSCULAR HGB CONC 33.1 g/dL (32.0-36.0); MEAN CORPUSCULAR VOLUME 91.9 fL (79-99); MONOCYTES % (AUTO) 9.7 % (3.0-13.0); NEUTROPHILS % (AUTO) 44.6 % (40.0-77.0); NUCLEATED RED BLOOD CELLS 0.4 % (0.0-0.19); PLATELET COUNT (AUTO) 127 K/uL (130-400); RED BLOOD CELL COUNT(AUTO) 4.04 MIL/uL (4.50-6.20); RED CELL DISTRIBUTION WIDTH 16.7 % (11.0-15.5); WHITE BLOOD COUNT (AUTO) 8.6 K/uL (4.8-10.8)
[2018-12-28 18:59] LABS: INR 0.94 (0.85-1.15); PARTIAL THROMBOPLASTIN TIME 29.7 SEC (26.3-35.5); PROTHROMBIN TIME 9.9 SEC (9.6-11.6)
[2018-12-28 19:01] LABS: ALBUMIN 4.1 g/dL (3.5-5.0); BILIRUBIN,TOTAL 0.4 mg/dL (0.2-1.0); POTASSIUM 5.9 mmol/L (3.5-5.1); TOTAL PROTEIN, SERUM 8.5 g/dL (6.0-8.3)
== END 2018-12-28 21:13 | disposition home or self-care (01) ==
LOC: EDH 16:36
DX: G91.2 (Idiopathic) normal pressure hydrocephalus (principal); R42 Dizziness and giddiness; I13.2 Hypertensive heart and chronic kidney disease with heart failure and with stage 5 chronic kidney disease, or end stage renal disease; E11.22 Type 2 diabetes mellitus with diabetic chronic kidney disease; N18.6 End stage renal disease; I25.10 Atherosclerotic heart disease of native coronary artery without angina pectoris; E78.5 Hyperlipidemia, unspecified; I50.9 Heart failure, unspecified; Z79.899 Other long term (current) drug therapy; Z99.2 Dependence on renal dialysis
CPT/HCPCS: 36415; 70450; 80053; 82948; 85025; 85610; 85730

== ENCOUNTER 2019-03-05 11:02 | Emergency (ER) | payer MEDICARE ==
[2019-03-05] MEDS ORDERED: METHYLPREDNISOLONE SOD SUCC 40MG/ML 1ML ONE (11:16)
[2019-03-05] MEDS ORDERED: DiphenhydrAMINE HCL 50 MG/ML VIAL ONE (11:16)
[2019-03-05] MEDS ORDERED: SODIUM CHLORIDE 0.9% 1000ML 1,000 ML IV ONE (11:17)
[2019-03-05] MEDS ORDERED: FAMOTIDINE/PF 20 MG/2 ML VIAL IV ONE (11:17)
[2019-03-05 11:27] LABS: BASOPHILS % (AUTO) 0.7 % (0.0-5.0); EOSINOPHILS % (AUTO) 6.4 % (0.0-8.0); HEMATOCRIT 34.9 % (42-54); LYMPHOCYTES % (AUTO) 23.8 % (21.0-51.0); MEAN CORPUSCULAR HEMOGLOBIN 31.3 pg (27.0-33.0); MEAN CORPUSCULAR VOLUME 94.6 fL (79-99); MONOCYTES % (AUTO) 7.7 % (3.0-13.0); NEUTROPHILS % (AUTO) 61.4 % (40.0-77.0); PLATELET COUNT (AUTO) 165 K/uL (130-400); RED BLOOD CELL COUNT(AUTO) 3.69 MIL/uL (4.50-6.20); RED CELL DISTRIBUTION WIDTH 17.3 % (11.0-15.5); WHITE BLOOD COUNT (AUTO) 11.1 K/uL (4.8-10.8)
[2019-03-05 11:37] LABS: ALBUMIN 4.1 g/dL (3.5-5.0); BILIRUBIN,TOTAL 0.5 mg/dL (0.2-1.0); POTASSIUM 5.3 mmol/L (3.5-5.1); TOTAL PROTEIN, SERUM 8.6 g/dL (6.0-8.3)
[2019-03-05 11:42] LABS: CREATININE 9.7 mg/dL (0.5-1.5)
[2019-03-05 12:06] LABS: INR 0.94 (0.85-1.15); PARTIAL THROMBOPLASTIN TIME 28.3 SEC (26.3-35.5); PROTHROMBIN TIME 9.9 SEC (9.6-11.6)
== END 2019-03-05 16:42 | disposition home or self-care (01) ==
LOC: EDH 11:02
DX: T63.441A Toxic effect of venom of bees, accidental (unintentional), initial encounter (principal); I13.2 Hypertensive heart and chronic kidney disease with heart failure and with stage 5 chronic kidney disease, or end stage renal disease; E11.22 Type 2 diabetes mellitus with diabetic chronic kidney disease; I50.9 Heart failure, unspecified; N18.6 End stage renal disease; I25.10 Atherosclerotic heart disease of native coronary artery without angina pectoris; E78.5 Hyperlipidemia, unspecified; Z99.2 Dependence on renal dialysis; Y92.89 Other specified places as the place of occurrence of the external cause
CPT/HCPCS: 36415; 71045; 80053; 82550 ×2; 82948; 84484 ×2; 85025; 85610; 85730; 93005; 96374; 96375; 99285; J1200; J2920; J3490; J7030

== ENCOUNTER 2019-03-18 05:49 | Emergency (ER) | payer MEDICARE ==
[2019-03-18 06:58] LABS: BASOPHILS % (AUTO) 0.3 % (0.0-5.0); EOSINOPHILS % (AUTO) 12.7 % (0.0-8.0); HEMATOCRIT 31.5 % (42-54); LYMPHOCYTES % (AUTO) 28.1 % (21.0-51.0); MEAN CORPUSCULAR HEMOGLOBIN 31.3 pg (27.0-33.0); MEAN CORPUSCULAR HGB CONC 33.2 g/dL (32.0-36.0); MEAN CORPUSCULAR VOLUME 94.4 fL (79-99); MONOCYTES % (AUTO) 10.1 % (3.0-13.0); NEUTROPHILS % (AUTO) 48.8 % (40.0-77.0); PLATELET COUNT (AUTO) 142 K/uL (130-400); RED BLOOD CELL COUNT(AUTO) 3.34 MIL/uL (4.50-6.20); RED CELL DISTRIBUTION WIDTH 15.7 % (11.0-15.5); WHITE BLOOD COUNT (AUTO) 11.5 K/uL (4.8-10.8)
[2019-03-18 07:10] LABS: ALBUMIN 3.9 g/dL (3.5-5.0); BILIRUBIN,TOTAL 0.4 mg/dL (0.2-1.0); TOTAL PROTEIN, SERUM 7.8 g/dL (6.0-8.3)
[2019-03-18 07:14] LABS: CREATININE 12.1 mg/dL (0.5-1.5)
[2019-03-18 07:18] LABS: INR 0.92 (0.85-1.15); PARTIAL THROMBOPLASTIN TIME 27.9 SEC (26.3-35.5); PROTHROMBIN TIME 9.7 SEC (9.6-11.6)
[2019-03-18] MEDS ORDERED: SODIUM POLYSTYRENE SULFONATE 15 GM/60 ML ML ONE (08:19)
[2019-03-18] MEDS ORDERED: INSULIN HUMULIN R 100 UNIT/ML 3ML ONE (08:21)
[2019-03-18] MEDS ORDERED: ALBUTEROL SULFATE 0.083% 2.5 MG/3 ML INH IH ONE ×4 (08:26→08:30)
[2019-03-18] MEDS ORDERED: SODIUM BICARB 50MEQ 50ML VIAL ONE (10:54)
[2019-03-18] MEDS ORDERED: LIDOCAINE HCL 1% 20 ML VIAL ONE (10:54)
== END 2019-03-18 12:17 | disposition home or self-care (01) ==
LOC: EDH 05:49
DX: I13.2 Hypertensive heart and chronic kidney disease with heart failure and with stage 5 chronic kidney disease, or end stage renal disease (principal); E11.22 Type 2 diabetes mellitus with diabetic chronic kidney disease; N18.6 End stage renal disease; I50.89 Other heart failure; E11.65 Type 2 diabetes mellitus with hyperglycemia; E87.5 Hyperkalemia; E78.5 Hyperlipidemia, unspecified; I25.10 Atherosclerotic heart disease of native coronary artery without angina pectoris; Z99.2 Dependence on renal dialysis; Z87.891 Personal history of nicotine dependence
CPT/HCPCS: 36415; 36556; 77001; 80053; 82948; 84132; 85025; 85610; 85730; 93005; 93990; 94640; 96374; 99285; C1752; C1894; J1644 ×2; J1815; J3490

== ENCOUNTER 2019-03-24 07:41 | Day surgery (SDC) | payer MEDICARE ==
[2019-03-21 11:00] VITALS: BP 145/71
[2019-03-22 12:05] VITALS: BP 154/71
[2019-03-22 12:18] LABS: BASOPHILS % (AUTO) 0.6 % (0.0-5.0); EOSINOPHILS % (AUTO) 6.8 % (0.0-8.0); HEMATOCRIT 31.2 % (42-54); LYMPHOCYTES % (AUTO) 20.2 % (21.0-51.0); MEAN CORPUSCULAR HEMOGLOBIN 31.6 pg (27.0-33.0); MEAN CORPUSCULAR HGB CONC 32.9 g/dL (32.0-36.0); MONOCYTES % (AUTO) 8.7 % (3.0-13.0); NEUTROPHILS % (AUTO) 63.7 % (40.0-77.0); PLATELET COUNT (AUTO) 169 K/uL (130-400); RED BLOOD CELL COUNT(AUTO) 3.25 MIL/uL (4.50-6.20); WHITE BLOOD COUNT (AUTO) 15.7 K/uL (4.8-10.8)
[2019-03-22 12:27] LABS: INR 0.9 (0.85-1.15); PROTHROMBIN TIME 9.5 SEC (9.6-11.6)
[2019-03-22 12:37] LABS: ALBUMIN 3.9 g/dL (3.5-5.0); BILIRUBIN,TOTAL 0.6 mg/dL (0.2-1.0); TOTAL PROTEIN, SERUM 8.3 g/dL (6.0-8.3)
[2019-03-22 12:45] LABS: CREATININE 10.1 mg/dL (0.5-1.5)
--- NOTE | 2019-03-22 14:46 | NUR ---
PROCEDURE CANCELLED BY DR. MYERS DUE TO ELEVATED POTASSIUM OF 6.0. REPORTED TO MAURA RHODES RN AT [facility]. SHE WILL NOTIFY
--- NOTE | 2019-03-22 14:47 | NUR ---
PT WILL BE DIALYZED TOMORROW PER MAURA AND BE RESCHEDULED FOR WEDNESDAY.
[~2019-03-24] VITALS: Ht 162.6 cm; Wt 63.4 kg
[2019-03-24] VITALS (7 sets, daily range): BP systolic 134–149; BP diastolic 59–72
--- NOTE | 2019-03-24 08:00 | NUR ---
PROCEDURE PT HERE FOR PROCEDURE. LABS WILL DRAWN. PT DENIES ANY PAIN, SOB AT THIS TIME. AT BEDSIDE.
[2019-03-24 08:37] LABS: BASOPHILS % (AUTO) 0.5 % (0.0-5.0); EOSINOPHILS % (AUTO) 7.3 % (0.0-8.0); HEMATOCRIT 31.6 % (42-54); LYMPHOCYTES % (AUTO) 21.7 % (21.0-51.0); MEAN CORPUSCULAR HEMOGLOBIN 31.2 pg (27.0-33.0); MEAN CORPUSCULAR HGB CONC 32.5 g/dL (32.0-36.0); MEAN CORPUSCULAR VOLUME 95.9 fL (79-99); MONOCYTES % (AUTO) 10.9 % (3.0-13.0); NEUTROPHILS % (AUTO) 59.6 % (40.0-77.0); PLATELET COUNT (AUTO) 172 K/uL (130-400); RED CELL DISTRIBUTION WIDTH 15.9 % (11.0-15.5); WHITE BLOOD COUNT (AUTO) 12.6 K/uL (4.8-10.8)
[2019-03-24] MEDS ORDERED: SODIUM CHLORIDE 0.9% 1000ML 1,000 ML IV ONE (08:51)
[2019-03-24 08:53] LABS: POTASSIUM 5.5 mmol/L (3.5-5.1)
[2019-03-24 09:01] LABS: CREATININE 9.9 mg/dL (0.5-1.5)
[2019-03-24 09:13] LABS: INR 0.93 (0.85-1.15); PARTIAL THROMBOPLASTIN TIME 32.9 SEC (26.3-35.5); PROTHROMBIN TIME 9.8 SEC (9.6-11.6)
[2019-03-24] MEDS ORDERED: IODIXANOL 320 MG/ML 100 ML VIAL ONE ×2 (09:13→11:12)
[2019-03-24] MEDS ORDERED: SODIUM BICARB 50MEQ 50ML VIAL ONE (09:13)
[2019-03-24] MEDS ORDERED: HEPARIN SODIUM 1000UNIT/ML 10ML VIAL ONE (09:13)
[2019-03-24] MEDS ORDERED: LIDOCAINE HCL 1% 20 ML VIAL ONE (09:13)
--- NOTE | 2019-03-24 09:25 | NUR ---
PROCEDURE PT TAKEN TO PROCEDURE VIA RIGGING WORKER STAFF.
--- NOTE | 2019-03-24 11:55 | NUR ---
PROCEDURE RECEIVED PT FROM DENTAL CERAMIST STAFF RAMIREZ MCDONALD. PT DOING WELL. AAOX3. DRSG TO LEFT AV GRAFT DRY AND INTACT. NO BLEEDING, OOZING NOTED TO SITE. INSTRUCTIONS PER DR. MYERS TO DRAW H/H AND INFORM HIM OF LEVELS.
[2019-03-24 12:06] LABS: HEMATOCRIT 30.8 % (42-54)
--- NOTE | 2019-03-24 12:15 | NUR ---
H/H H/H REPORTED TO DR. MYERS. ORDERS RECEIVED TO DISCHARGE PT HOME AFTER AN HOUR.
== END 2019-03-24 13:25 | disposition home or self-care (01) ==
LOC: DAH 07:41
PROVIDERS: ATTEND Internal Medicine Nephrology
DX: T82.868A Thrombosis due to vascular prosthetic devices, implants and grafts, initial encounter (principal); Y83.8 Other surgical procedures as the cause of abnormal reaction of the patient, or of later complication, without mention of misadventure at the time of the procedure; Y92.89 Other specified places as the place of occurrence of the external cause; I25.10 Atherosclerotic heart disease of native coronary artery without angina pectoris; I13.2 Hypertensive heart and chronic kidney disease with heart failure and with stage 5 chronic kidney disease, or end stage renal disease; E11.22 Type 2 diabetes mellitus with diabetic chronic kidney disease; N18.6 End stage renal disease; I50.9 Heart failure, unspecified; F32.9 Major depressive disorder, single episode, unspecified; D63.1 Anemia in chronic kidney disease; I73.9 Peripheral vascular disease, unspecified; Z79.82 Long term (current) use of aspirin; Z87.891 Personal history of nicotine dependence; Z83.3 Family history of diabetes mellitus; Z79.4 Long term (current) use of insulin
CPT/HCPCS: 36415 ×2; 36902; 80048; 80053; 82948; 85014; 85018; 85025 ×2; 85610 ×2; 85730; A4606 ×2; C1725 ×2; C1769; C1894 ×3; J1644 ×3; J3490; J7030; Q9967 ×2; 36905

== ENCOUNTER 2019-04-05 06:19 | Day surgery (SDC) | payer MEDICARE ==
[2019-04-03 14:05] VITALS: BP 133/71
[2019-04-03 14:12] LABS: BASOPHILS % (AUTO) 0.9 % (0.0-5.0); EOSINOPHILS % (AUTO) 10.4 % (0.0-8.0); HEMATOCRIT 23.5 % (42-54); LYMPHOCYTES % (AUTO) 28.6 % (21.0-51.0); MEAN CORPUSCULAR HGB CONC 32.6 g/dL (32.0-36.0); MEAN CORPUSCULAR VOLUME 95.1 fL (79-99); MONOCYTES % (AUTO) 7.5 % (3.0-13.0); NEUTROPHILS % (AUTO) 52.6 % (40.0-77.0); PLATELET COUNT (AUTO) 262 K/uL (130-400); RED BLOOD CELL COUNT(AUTO) 2.47 MIL/uL (4.50-6.20); WHITE BLOOD COUNT (AUTO) 13.4 K/uL (4.8-10.8)
[2019-04-03 14:27] LABS: ALBUMIN 3.9 g/dL (3.5-5.0); BILIRUBIN,TOTAL 0.4 mg/dL (0.2-1.0); POTASSIUM 5.9 mmol/L (3.5-5.1); TOTAL PROTEIN, SERUM 7.9 g/dL (6.0-8.3)
[2019-04-03 14:44] LABS: CREATININE 14.3 mg/dL (0.5-1.5)
[2019-04-03 14:46] LABS: INR 0.93 (0.85-1.15); PROTHROMBIN TIME 9.8 SEC (9.6-11.6)
[2019-04-05] VITALS (8 sets, daily range): BP systolic 138–152; BP diastolic 55–72
[~2019-04-05] VITALS: Ht 162.6 cm; Wt 64.4 kg
--- NOTE | 2019-04-05 08:35 | NUR ---
ORDERS INFORMED Mike GRUBER RN OF SENDING CORRECTED ORDERS FOR ELLIE REMOVAL. INFORMED OF H/H/BMP. PER DR. BERRIOS PROCEED WITH PROCEDURE.
--- NOTE | 2019-04-05 08:53 | NUR ---
PROCEDURE 14 CENTRAL AFRICAN 15CM INTACT DUAL ELLIE CATHETER REMOVED FROM RIGHT SIDE OF NECK USING ASEPTIC TECHNIQUE. PRESSURE APPLIED AND GAUZE DRSG IN PLACE TO SITE. SOFT TO TOUCH. NO BLEEDING, OOZING NOTED TO SITE. PT TOLERATED PROCEDURE WELL. DENIES PAIN, SOB.
--- NOTE | 2019-04-05 09:30 | NUR ---
DISCHARGE ORAL AND WRITTEN DISCHARGE INSTRUCTIONS GIVEN TO PT AND PTS BY Isrrael AMEZQUITA RN. PT INSTRUCTED ON IMPORTANCE OF MONITORING FOR PAIN, WEAKNESS, SOB. BOTH VERBALIZED UNDERSTANDING.
== END 2019-04-05 09:45 | disposition home or self-care (01) ==
LOC: DAH 06:19
PROVIDERS: ATTEND Internal Medicine Nephrology
DX: Z45.2 Encounter for adjustment and management of vascular access device (principal); E11.22 Type 2 diabetes mellitus with diabetic chronic kidney disease; I12.0 Hypertensive chronic kidney disease with stage 5 chronic kidney disease or end stage renal disease; E83.30 Disorder of phosphorus metabolism, unspecified; Z99.2 Dependence on renal dialysis; D63.1 Anemia in chronic kidney disease; E78.00 Pure hypercholesterolemia, unspecified; E11.42 Type 2 diabetes mellitus with diabetic polyneuropathy; N25.81 Secondary hyperparathyroidism of renal origin; E21.3 Hyperparathyroidism, unspecified
CPT/HCPCS: 36415; 80053; 82948; 85025; 85610; A4606; G0463

== ENCOUNTER 2019-06-07 14:46 | Inpatient (IN) | payer MEDICARE | END 2019-06-16 18:15 | disposition home or self-care (01) | LOC: EDH 14:46 → EDHIP 16:44 → 2DH 18:04 | PROC: 03C80ZZ Extirpation of Matter from Left Brachial Artery, Open Approach (ICD-10-PCS; principal; 2019-06-13 11:00) | DX: T82.868A Thrombosis due to vascular prosthetic devices, implants and grafts, initial encounter (principal); N18.6 End stage renal disease; I42.9 Cardiomyopathy, unspecified; I12.0 Hypertensive chronic kidney disease with stage 5 chronic kidney disease or end stage renal disease; E87.5 Hyperkalemia; E11.22 Type 2 diabetes mellitus with diabetic chronic kidney disease; E11.51 Type 2 diabetes mellitus with diabetic peripheral angiopathy without gangrene; D64.9 Anemia, unspecified; Z99.2 Dependence on renal dialysis ==

== ENCOUNTER 2019-08-07 16:34 | Inpatient (IN) | payer MEDICARE ==
[~2019-08-07] VITALS: Ht 160 cm; Wt 65.0 kg
[~2019-08-07 16:34] MED LIST changes: -ASPI-555 PO; -CALC667C10 PO; +INSU100I13 SQ; -INSU3INS3 SQ; -LOSA100T58 PO
[2019-08-07] MEDS ORDERED: ZOSYN 3.375GM+NS 50ML 50 ML IV ONE (17:12)
[2019-08-07] MEDS ORDERED: ACETAMINOPHEN 325 MG TAB ONE (17:12)
[2019-08-07] MEDS ORDERED: SODIUM CHLORIDE 0.9% 1000ML 2,000 ML IV ONE (17:13)
[2019-08-07 17:17] LABS: BASOPHILS % (AUTO) 0.1 % (0.0-5.0); HEMATOCRIT 29.5 % (42-54); LYMPHOCYTES % (AUTO) 6.4 % (21.0-51.0); MEAN CORPUSCULAR HEMOGLOBIN 30.4 pg (27.0-33.0); MEAN CORPUSCULAR HGB CONC 32.9 g/dL (32.0-36.0); MEAN CORPUSCULAR VOLUME 92.6 fL (79-99); MONOCYTES % (AUTO) 9.4 % (3.0-13.0); NEUTROPHILS % (AUTO) 84.1 % (40.0-77.0); PLATELET COUNT (AUTO) 97 K/uL (130-400); RED BLOOD CELL COUNT(AUTO) 3.18 MIL/uL (4.50-6.20); RED CELL DISTRIBUTION WIDTH 15.5 % (11.0-15.5); WHITE BLOOD COUNT (AUTO) 18.9 K/uL (4.8-10.8)
[2019-08-07 17:31] LABS: INR 1.03 (0.85-1.15); PARTIAL THROMBOPLASTIN TIME 38.7 SEC (26.3-35.5); PROTHROMBIN TIME 10.8 SEC (9.6-11.6)
[2019-08-07 17:40] LABS: ALANINE AMINOTRANSFERASE 59 U/L (12-78); ASPARTATE AMINOTRANSFERASE 29 U/L (10-37); BILIRUBIN,TOTAL 0.8 mg/dL (0.2-1.0); CARBON DIOXIDE 21 mmol/L (21-32); CREATINE KINASE, TOTAL 168 U/L (21-232); GLOMERULAR FILTR. RATE CALC 4 mL/min (>60); MYOGLOBIN 924 ng/mL (10-92); POTASSIUM 5.5 mmol/L (3.5-5.1); SODIUM SERUM 114 mmol/L (136-145); TOTAL PROTEIN, SERUM 7.8 g/dL (6.0-8.3); TROPONIN I < 0.04 ng/mL (0.00-0.06)
[2019-08-07 17:46] LABS: CHLORIDE 77 mmol/L (101-111); CREATININE 12.7 mg/dL (0.5-1.5); GLUCOSE,RANDOM 403 mg/dL (70-105); UREA NITROGEN, BLOOD 88 mg/dL (7-18)
[2019-08-07 17:57] LABS: PLATELET MORPHOLOGY COMMENT DECREASED
[2019-08-07] MEDS ORDERED: INSULIN HUMULIN R 100 UNIT/ML 3ML ONE (18:00)
[2019-08-07] MEDS ORDERED: SODIUM CHLORIDE 0.9% 1000ML 1,000 ML IV SCH (21:15)
[2019-08-07] MEDS ORDERED: HYDRALAZINE HCL 20 MG/ML VIAL IV PRN (21:15)
[2019-08-07] MEDS ORDERED: VANCOMYCIN PROTOCOL PER PHARMACY IV PRN (21:15)
[2019-08-07] MEDS ORDERED: MEROPENEM 500 MG VIAL IV SCH (21:15)
[2019-08-07] MEDS ORDERED: IPRATROPIUM/ALBUTEROL SULFATE 3 ML SOLUTION IH PRN (21:30)
[2019-08-07] MEDS ORDERED: VANCOMYCIN 1GM+NS 250ML 250 ML IV SCH (22:00)
[2019-08-07] MEDS ORDERED: MEROPENEM 500 MG VIAL ONE (22:24)
[2019-08-07 22:43] VITALS: BP 152/73
--- NOTE | 2019-08-07 22:50 | NUR ---
ADMIT PT ADMITTED TO ROOM 404, AAOX3. DENIES ANY PAINS NOR DISCOMFORT AT THIS TIME. PT'S SPOUSE CLAIMS THAT PT STARTED HAVING COUGH JUST RIGHT NOW. NOTED TO HAVE EXPIRATORY WHEEZING. ADMISSION CARE DONE. ADMISSION DATA BASE COMPLETED. STARTED ON IVF AND IV VANCO PER MD ORDER. TELE MONITOR PLACED PT AT ST 110 BPM AT THIS TIME. ORIENTED TO ROOM AND UNIT. IN FOR MORE CARE AND MANAGEMENT. Addendum: 08/07/19 at 0614 by SUKHDEEP BOLANOS RN RN Amended: Links added.
--- NOTE | 2019-08-08 01:20 | NUR ---
EMELYN DIETRICH NP AEROSPACE QUALITY ENGINEER FOR HOSPITALIST, IN TO SEE PT. RESOURCE NURSE ALSO IN THE FLOOR. MIXED SIGNAL DESIGN ENGINEER VERBALIZES NEED FOR PT TO BE IN PCCU DUE TO LOW SODIUM. RESOURCE NURSE INFORMED MIXED SIGNAL DESIGN ENGINEER THAT THERE IS NO PCCU BED AVAILABLE AT THIS TIME. STAT BMP ORDERED. LAB CALLED FOR BLOOD DRAW. WILL CALL LAB RESULTS.
--- NOTE | 2019-08-08 01:40 | NUR ---
PADS SEIZURE PADS APPLIED TO PT'S BED FOR PRECAUTION.
[2019-08-08 01:49] LABS: CREATININE 12.8 mg/dL (0.5-1.5); POTASSIUM 6.3 mmol/L (3.5-5.1)
--- NOTE | 2019-08-08 02:00 | NUR ---
HARVEST WORKER CALLED HARVEST WORKER AND INFORMED OF BMP RESULTS. NEW ORDERS GIVEN, PLEASE REFER TO CPOE.
[2019-08-08 04:00] VITALS: BP 145/78
[2019-08-08 05:25] LABS: BASOPHILS % (AUTO) 0.1 % (0.0-5.0); EOSINOPHILS % (AUTO) 0.1 % (0.0-8.0); HEMATOCRIT 29.6 % (42-54); MEAN CORPUSCULAR HEMOGLOBIN 30.2 pg (27.0-33.0); MEAN CORPUSCULAR HGB CONC 32.6 g/dL (32.0-36.0); MEAN CORPUSCULAR VOLUME 92.4 fL (79-99); MONOCYTES % (AUTO) 7.5 % (3.0-13.0); NEUTROPHILS % (AUTO) 81.3 % (40.0-77.0); PLATELET COUNT (AUTO) 86 K/uL (130-400); RED CELL DISTRIBUTION WIDTH 16.2 % (11.0-15.5); WHITE BLOOD COUNT (AUTO) 22.5 K/uL (4.8-10.8)
[2019-08-08 05:45] LABS: POTASSIUM 5.8 mmol/L (3.5-5.1)
[2019-08-08 05:48] LABS: CREATININE 13.3 mg/dL (0.5-1.5)
--- NOTE | 2019-08-08 06:10 | NUR ---
HD NURSE CALLED [facility] HD NURSE, AND MADE AWARE OF PT'S SCHEDULE FOR HD .
[2019-08-08 07:30] VITALS: BP 148/69
--- NOTE | 2019-08-08 08:32 | NUR ---
DR. ATWOOD IN TO SEE PT. ORDERS ENTERED. PENDING DIALYSIS TODAY.
[2019-08-08] MEDS ORDERED: ACETAMINOPHEN EXTRA STRENGTH 500 MG TABLET PO PRN (08:45)
[2019-08-08] MEDS ORDERED: ONDANSETRON HCL 4 MG/2 ML VIAL IVP PRN (08:45)
[2019-08-08] MEDS: ***HM***(Cholecalciferol (Vitamin D3) (Vitamin D3) 2,000 UNIT) PO SCH (09:00)
[2019-08-08] MEDS: VITAMIN B COMPLEX 1 CAPSULE PO SCH (10:14)
[2019-08-08] MEDS: AMLODIPINE BESYLATE 5 MG TAB PO SCH (10:14)
[2019-08-08] MEDS: ZOSYN 3.375GM+NS 50ML 50 ML IV SCH ×2 (10:15→20:45)
[2019-08-08] MEDS: FAMOTIDINE/PF 20 MG/2 ML VIAL IV SCH (10:15)
[2019-08-08] MEDS: HEPARIN SODIUM 5000UNIT/ML 1ML VIAL SQ SCH ×2 (10:25→20:47)
[2019-08-08 11:00] VITALS: BP 148/78
[2019-08-08] MEDS: SEVELAMER HCL 800 MG TABLET PO SCH ×2 (11:40→17:25)
[2019-08-08] MEDS: INSULIN HUMULIN R 100 UNIT/ML 3ML SQ SCH ×3 (11:41→20:47)
--- NOTE | 2019-08-08 15:30 | NUR ---
HD TX. STARTED.
--- NOTE | 2019-08-08 15:30 | NUR ---
STARTED ON HD TX. NOW.
[2019-08-08 16:00] VITALS: BP 116/71
--- NOTE | 2019-08-08 17:57 | NUR ---
RD Notification Pt admitted for Sepsis. Pt Hx CAD, ESRD on HD (TTS), IDDM, Hyperlipidemia, HTN. Pt tolerating Renal Dialysis Diet, NCS with no report of GI distress and PO intake at 50%, as per Pt's . Recommend to continue current diet order. Pt LBM 11/, Pt monitored labs: Hgb 9.7, Na 127, K 5.8, Cl 92, CO2 17, BUN 90, Cr 13.3, GFR 4, Glu 322, Ca 8.8. RD to follow up. Please notify RD as additional nutrition concerns arise. Thank you. Addendum: 08/08/19 at [address] Amended: Links added.
--- NOTE | 2019-08-08 18:09 | NUR ---
INITIAL MET W PATIENT AND IRENE LU. PT IS AN HD PT X5 YEARS, DIALYSIS IN N, TTS, [facility] [employer] [facility]SP[facility], HOME SAFE AND ACCESSIBLE, PT INDP W NO DME, AND DCP IS HOME NO SECONDARY INSURANCE. CALL TO SILVIA MANN TO GET SCREENED FOR SECONDARY BENEFITS Addendum: 08/09/19 at 1814 by PHILIPP LEE RN CM Amended: Links added.
--- NOTE | 2019-08-08 18:30 | NUR ---
HD TX. COMPLETE. 2.7 LITERS REMOVED. BP 124/73, HR 96. PROCEDURE TOLERATED WELL.
--- NOTE | 2019-08-08 19:50 | NUR ---
CONSULT DR BERRIOS IN TO SEE PT. NEW ORDERS GIVEN, PLEASE REFER TO CPOE.
[2019-08-08 20:00] VITALS: BP 162/74
[2019-08-08] MEDS: ATORVASTATIN CALCIUM 20 MG TABLET PO SCH (20:45)
[2019-08-08] MEDS: METOPROLOL TARTRATE 25 MG TAB PO SCH (20:45)
--- NOTE | 2019-08-08 20:45 | NUR ---
MEDS SHIFT ASSESSMENT DONE, PLEASE REFER TO CHART. DUE MEDS ADMINISTERED, TOLERATED WELL. KEPT RESTED AND COMFORTABLE. CALL LIGHT WITHIN REACH. WILL MONITOR PT. SPOUSE AT BEDSIDE.
[2019-08-08 22:10] VITALS: BP 151/73
[2019-08-09] VITALS (7 sets, daily range): BP systolic 142–150; BP diastolic 65–72
--- NOTE | 2019-08-09 00:30 | NUR ---
PIV PT'S SPOUSE CALLS AND INFORMED FOOD SERVICE ASSOCIATE THAT PT'S PIV IS BLEEDING. PT JUST GOT BACK TO BED FROM THE RESTROOM AND NOTED PIV IS ALREADY OUT WITH CATHETER INTACT. SOILED LINEN CHANGED BY PCP AND ASSISTED PT TO SHOWER. PT'S SPOUSE IN ATTENDANCE. Addendum: 08/09/19 at 0041 by SUKHDEEP BOLANOS RN RN Amended: Links added.
--- NOTE | 2019-08-09 01:45 | NUR ---
PIV PT TRIED TO HAVE A BM BUT NONE CAME OUT. PT STARTED TO HAVE CHILLS AND COMPLAINTS OF FEELING COLD. EXTRA BLANKET PROVIDED. CHECKED TEMPERATURE=98.3. RE-INSERTED PIV G20 TO RT HAND, TOLERATED WELL. CONTINUED IV ZOSYN INFUSION. WILL RE-ASSESS PT. Addendum: 08/09/19 at 0152 by SUKHDEEP BOLANOS RN RN Amended: Links added.
[2019-08-09 05:29] LABS: HEMATOCRIT 25.7 % (42-54); MEAN CORPUSCULAR HGB CONC 33.8 g/dL (32.0-36.0); MEAN CORPUSCULAR VOLUME 91.7 fL (79-99); PLATELET COUNT (AUTO) 83 K/uL (130-400); RED CELL DISTRIBUTION WIDTH 16.5 % (11.0-15.5); WHITE BLOOD COUNT (AUTO) 14.6 K/uL (4.8-10.8)
[2019-08-09 05:41] LABS: BAND NEUTROPHILS % (MANUAL) 14 % (0-2); LYMPHOCYTES % (MANUAL) 12 % (22-44); MAN.DIFF COMMENT-IMPRESSION MANUAL DIFFERENTIAL; MONOCYTES % (MANUAL) 2 % (2-9); PLATELET MORPHOLOGY COMMENT DECREASED; SEGMENTED NEUTROPHILS % 72 % (40-70)
[2019-08-09 05:56] LABS: ALBUMIN 2.8 g/dL (3.5-5.0); BILIRUBIN,TOTAL 0.8 mg/dL (0.2-1.0); MAGNESIUM 1.9 mg/dL (1.80-2.40); PHOSPHORUS 3.3 mg/dL (2.5-4.9); POTASSIUM 4.3 mmol/L (3.5-5.1); TOTAL PROTEIN, SERUM 6.8 g/dL (6.0-8.3)
--- NOTE | 2019-08-09 06:00 | NUR ---
ROUNDS PT FAIRLY ASLEEP, NO DISTRESS NOTED. KEPT UNDISTURBED FOR NOW. CALL LIGHT WITHIN REACH. FOR MORE CARE.
[2019-08-09 06:03] LABS: CREATININE 8.7 mg/dL (0.5-1.5)
[2019-08-09] MEDS: INSULIN HUMULIN R 100 UNIT/ML 3ML SQ SCH ×4 (06:12→21:41)
[2019-08-09 07:15] LABS: HEPATITIS A ANTIBODY IGM Negative (Negative); HEPATITIS B CORE IGM Negative (Negative); HEPATITIS Bs ANTIGEN SCREEN P Negative (Negative)
[2019-08-09] MEDS: ***HM***(Cholecalciferol (Vitamin D3) (Vitamin D3) 2,000 UNIT) PO SCH (09:00)
[2019-08-09] MEDS: AMLODIPINE BESYLATE 5 MG TAB PO SCH (09:44)
[2019-08-09] MEDS: VITAMIN B COMPLEX 1 CAPSULE PO SCH (09:44)
[2019-08-09] MEDS: ZOSYN 3.375GM+NS 50ML 50 ML IV SCH ×2 (09:44→21:46)
[2019-08-09] MEDS: FAMOTIDINE/PF 20 MG/2 ML VIAL IV SCH (09:44)
[2019-08-09] MEDS: SEVELAMER HCL 800 MG TABLET PO SCH ×3 (09:44→17:11)
[2019-08-09] MEDS: METOPROLOL TARTRATE 25 MG TAB PO SCH ×2 (09:54→21:46)
--- NOTE | 2019-08-09 14:30 | NUR ---
DR BERRIOS ROUNDED ON PATIENT ORDERED RECEIVED FOR LABS IN AM
[2019-08-09] MEDS: ATORVASTATIN CALCIUM 20 MG TABLET PO SCH (21:46)
[2019-08-10 03:42] VITALS: BP 134/66
[2019-08-10 05:08] LABS: HEMATOCRIT 26.2 % (42-54); MEAN CORPUSCULAR HEMOGLOBIN 30.5 pg (27.0-33.0); MEAN CORPUSCULAR HGB CONC 33.6 g/dL (32.0-36.0); MEAN CORPUSCULAR VOLUME 90.7 fL (79-99); PLATELET COUNT (AUTO) 98 K/uL (130-400); RED BLOOD CELL COUNT(AUTO) 2.88 MIL/uL (4.50-6.20); RED CELL DISTRIBUTION WIDTH 16.5 % (11.0-15.5); WHITE BLOOD COUNT (AUTO) 13.5 K/uL (4.8-10.8)
[2019-08-10 05:16] LABS: ALBUMIN 2.5 g/dL (3.5-5.0); BILIRUBIN,TOTAL 0.7 mg/dL (0.2-1.0); PHOSPHORUS 4.9 mg/dL (2.5-4.9); POTASSIUM 4.2 mmol/L (3.5-5.1); TOTAL PROTEIN, SERUM 6.9 g/dL (6.0-8.3)
[2019-08-10 05:21] LABS: CREATININE 10.8 mg/dL (0.5-1.5)
[2019-08-10 05:23] LABS: BAND NEUTROPHILS % (MANUAL) 5 % (0-2); BASOPHILS % (MANUAL) 2 % (0-2); EOSINOPHILS % (MANUAL) 5 % (1-6); LYMPHOCYTES % (MANUAL) 25 % (22-44); MONOCYTES % (MANUAL) 6 % (2-9); SEGMENTED NEUTROPHILS % 57 % (40-70)
[2019-08-10 05:24] LABS: MAN.DIFF COMMENT-IMPRESSION MANUAL DIFFERENTIAL; PLATELET MORPHOLOGY COMMENT DECREASED
[2019-08-10 07:00] VITALS: BP 136/70
[2019-08-10] MEDS: INSULIN HUMULIN R 100 UNIT/ML 3ML SQ SCH ×3 (07:00→16:48)
[2019-08-10] MEDS: VITAMIN B COMPLEX 1 CAPSULE PO SCH (08:24)
[2019-08-10] MEDS: SEVELAMER HCL 800 MG TABLET PO SCH ×3 (08:24→17:20)
[2019-08-10] MEDS: METOPROLOL TARTRATE 25 MG TAB PO SCH (08:26)
[2019-08-10] MEDS: ***HM***(Cholecalciferol (Vitamin D3) (Vitamin D3) 2,000 UNIT) PO SCH (08:27)
[2019-08-10] MEDS: AMLODIPINE BESYLATE 5 MG TAB PO SCH (08:27)
[2019-08-10] MEDS: FAMOTIDINE/PF 20 MG/2 ML VIAL IV SCH (08:27)
[2019-08-10] MEDS: ZOSYN 3.375GM+NS 50ML 50 ML IV SCH (08:28)
[2019-08-10] MEDS ORDERED: CIPR250T6 PO (08:48)
[2019-08-10 11:00] VITALS: BP 140/72
[2019-08-10 16:00] VITALS: BP 140/66
--- NOTE | 2019-08-10 18:18 | NUR ---
PATIENT AND GIVEN DISCHARGE INSTRUCTIONS AND VERBALIZED UNDERSTANDING, IV REMOVED WITH CATHETER INTACT AND PRESSURE HELD TO SITE THEN SITE DRESSED. MONITORING UNIT NOTIFIED AND TELEMETRY UNIT REMOVED , REVIEWED MEDICATIONS AND FOLLOW-UP APPOINTMENT NO QUESTIONS OR CONCERNS AT THIS TIME , PATIENT TRANSFER VIA WHEELCHAIR BY PCP TO [facility] AND LEFT WITH FAMILY FOR HOME
== END 2019-08-10 18:15 | disposition home or self-care (01) | DRG 871 ==
LOC: EDH 16:34 → 3AH 21:15
PROVIDERS: ADMIT Internal Medicine; ATTEND Internal Medicine
PROC: 5A1D70Z Performance of Urinary Filtration, Intermittent, Less than 6 Hours Per Day (ICD-10-PCS; 2019-08-08)
PROC: 5A1D70Z Performance of Urinary Filtration, Intermittent, Less than 6 Hours Per Day (ICD-10-PCS; principal; 2019-08-10)
DX: A41.9 Sepsis, unspecified organism (principal); N18.6 End stage renal disease; E87.1 Hypo-osmolality and hyponatremia; N17.9 Acute kidney failure, unspecified; I13.2 Hypertensive heart and chronic kidney disease with heart failure and with stage 5 chronic kidney disease, or end stage renal disease; K52.9 Noninfective gastroenteritis and colitis, unspecified; E86.0 Dehydration; Z99.2 Dependence on renal dialysis; E11.22 Type 2 diabetes mellitus with diabetic chronic kidney disease; D64.9 Anemia, unspecified; D69.59 Other secondary thrombocytopenia; R65.20 Severe sepsis without septic shock; E87.5 Hyperkalemia; E78.5 Hyperlipidemia, unspecified; I25.10 Atherosclerotic heart disease of native coronary artery without angina pectoris; I50.9 Heart failure, unspecified; J44.9 Chronic obstructive pulmonary disease, unspecified; Z82.0 Family history of epilepsy and other diseases of the nervous system; Z82.3 Family history of stroke; Z82.49 Family history of ischemic heart disease and other diseases of the circulatory system; Z82.5 Family history of asthma and other chronic lower respiratory diseases; Z83.3 Family history of diabetes mellitus
CPT/HCPCS: 36415; 71045; 80048; 80053; 80074; 82550; 82948; 83605; 83735; 83874; 84100; 84145; 84484; 85025; 85610; 85730; 87040; 87804; 90935; 93005; 94664; G0378; J1644; J1815; J2185; J2543; J3370; J3490; J7030

== ENCOUNTER 2020-07-09 05:18 | Inpatient (IN) | payer MEDICARE ==
[~2020-07-09] VITALS: Ht 160 cm; Wt 62.0 kg
[~2020-07-09 05:18] MED LIST changes: +CIPR250T6 PO
[2020-07-09] MEDS ORDERED: FUROSEMIDE 10 MG/ML 2ML VIAL ONE (05:49)
[2020-07-09 06:07] LABS: ABG BASE EXCESS -2.5 mmol/L (-2.0-3.0); ABG HCO3 22.4 mmol/L (21.0-28.0); ABG OXYGEN SATURATION 96.8 % (95.0-99.0); ABG PCO2 39 mmHg (35-48)
[2020-07-09 06:13] LABS: BASOPHILS % (AUTO) 0.3 % (0.0-5.0); EOSINOPHILS % (AUTO) 4.7 % (0.0-8.0); HEMATOCRIT 33.3 % (42-54); LYMPHOCYTES % (AUTO) 11.7 % (21.0-51.0); MEAN CORPUSCULAR HEMOGLOBIN 31.6 pg (27.0-33.0); MEAN CORPUSCULAR HGB CONC 32.7 g/dL (32.0-36.0); MEAN CORPUSCULAR VOLUME 96.5 fL (79-99); NEUTROPHILS % (AUTO) 76.8 % (40.0-77.0); PLATELET COUNT (AUTO) 163 K/uL (130-400); RED BLOOD CELL COUNT(AUTO) 3.45 MIL/uL (4.50-6.20); RED CELL DISTRIBUTION WIDTH 14.6 % (11.0-15.5); WHITE BLOOD COUNT (AUTO) 15.4 K/uL (4.8-10.8)
[2020-07-09 06:23] LABS: ALBUMIN 3.8 g/dL (3.5-5.0); BILIRUBIN,TOTAL 0.5 mg/dL (0.2-1.0); TOTAL PROTEIN, SERUM 8.7 g/dL (6.0-8.3)
[2020-07-09 06:30] LABS: INR 0.9 (0.85-1.15); PARTIAL THROMBOPLASTIN TIME 27.5 SEC (26.3-35.5); PROTHROMBIN TIME 9.8 SEC (9.6-11.6)
[2020-07-09 06:40] LABS: B-TYPE NATRIURETIC PEPTIDE 1520 pg/mL (0-100)
[2020-07-09] MEDS ORDERED: DEXAMETHASONE SOD PHOSPHATE 10MG/ML 1ML VIAL ONE (07:13)
[2020-07-09] MEDS ORDERED: ONDANSETRON HCL 4 MG/2 ML VIAL IVP PRN (07:30)
[2020-07-09] MEDS ORDERED: INSULIN HUMULIN R 100 UNIT/ML 3ML ONE (07:42)
[2020-07-09 07:43] LABS: CREATININE 10.8 mg/dL (0.5-1.5)
[2020-07-09 08:25] LABS: POTASSIUM 7.7 mmol/L (3.5-5.1)
[2020-07-09] MEDS ORDERED: ENOXAPARIN SODIUM 30 MG/0.3 ML SQ ONE (08:43)
[2020-07-09 08:50] LABS: ALBUMIN 3.6 g/dL (3.5-5.0); BILIRUBIN,TOTAL 0.5 mg/dL (0.2-1.0); TOTAL PROTEIN, SERUM 7.9 g/dL (6.0-8.3)
[2020-07-09 09:15] LABS: POTASSIUM 7.3 mmol/L (3.5-5.1)
[2020-07-09 09:16] LABS: CREATININE 11.3 mg/dL (0.5-1.5)
[2020-07-09] MEDS: CEFTRIAXONE SODIUM 1 GM IVP SCH (15:00)
[2020-07-09] MEDS: AZITHROMYCIN 500MG+NS 250ML 250 ML IV SCH (15:00)
[2020-07-09] MEDS: INSULIN R PO SS1/2 SQ SCH (15:00)
[2020-07-09] MEDS: PANTOPRAZOLE 40 MG/VIAL IVP SCH (15:00)
[2020-07-09] MEDS: ENOXAPARIN SODIUM 30 MG/0.3 ML SQ SCH (15:00)
[2020-07-09] MEDS ORDERED: SODIUM CHLORIDE 0.9% 50 ML IV ONE (16:28)
[2020-07-09] MEDS ORDERED: CEFTRIAXONE SODIUM 1 GM ONE (16:28)
--- NOTE | 2020-07-09 16:42 | NUR ---
SPOKE TO SPOUSE ON PHONE FOR DC PLANNING LIVES WITH NILSA SPOUSE, WHO PROVIDES TRANSPORT TO HD TTS AT [facility]; PT HAS BEEN ON HD X 5 YEARS, USES A ROLLING WALKER FOR AMBULAITON AND REQUIRES ASSISTANCE WITH BATHING, DCP IS HOME, ABBY TO FOLLOW Addendum: 07/09/20 at 1647 by PHILIPP LEE RN CM Amended: Links added.
[2020-07-09] MEDS ORDERED: AZITHROMYCIN 500MG+NS 250ML 250 ML IV ONE (17:13)
[2020-07-10 00:57] LABS: TROPONIN I 0.05 ng/mL (0.00-0.06)
[2020-07-10 05:12] LABS: BASOPHILS % (AUTO) 0.2 % (0.0-5.0); EOSINOPHILS % (AUTO) 0.8 % (0.0-8.0); LYMPHOCYTES % (AUTO) 14.7 % (21.0-51.0); MEAN CORPUSCULAR HEMOGLOBIN 31.3 pg (27.0-33.0); MEAN CORPUSCULAR HGB CONC 31.8 g/dL (32.0-36.0); MEAN CORPUSCULAR VOLUME 98.6 fL (79-99); MONOCYTES % (AUTO) 10.1 % (3.0-13.0); NEUTROPHILS % (AUTO) 73.7 % (40.0-77.0); PLATELET COUNT (AUTO) 120 K/uL (130-400); RED BLOOD CELL COUNT(AUTO) 2.84 MIL/uL (4.50-6.20); RED CELL DISTRIBUTION WIDTH 14.7 % (11.0-15.5); WHITE BLOOD COUNT (AUTO) 10.2 K/uL (4.8-10.8)
[2020-07-10 05:28] LABS: HEMOGLOBIN A1C 5.5 % (4.0-6.0)
[2020-07-10 05:35] LABS: ALBUMIN 3.4 g/dL (3.5-5.0); BILIRUBIN,TOTAL 0.5 mg/dL (0.2-1.0); POTASSIUM 5.8 mmol/L (3.5-5.1); THYROID STIMULATING HORMONE 2.29 uIU/mL (0.36-3.74); TOTAL PROTEIN, SERUM 7.6 g/dL (6.0-8.3)
[2020-07-10 05:37] LABS: CREATININE 9.2 mg/dL (0.5-1.5)
[2020-07-10] MEDS ORDERED: ENOXAPARIN SODIUM 30 MG/0.3 ML SQ ONE (08:32)
[2020-07-10] MEDS ORDERED: INSULIN HUMULIN R 100 UNIT/ML 3ML ONE (08:38)
[2020-07-10] MEDS: PANTOPRAZOLE 40 MG/VIAL IVP SCH (15:00)
[2020-07-10] MEDS: CEFTRIAXONE SODIUM 1 GM IVP SCH (15:00)
[2020-07-10] MEDS: ENOXAPARIN SODIUM 30 MG/0.3 ML SQ SCH (15:00)
[2020-07-10] MEDS: INSULIN R PO SS1/2 SQ SCH ×3 (15:00→22:53)
[2020-07-10] MEDS: AZITHROMYCIN 500MG+NS 250ML 250 ML IV SCH (15:00)
[2020-07-10 15:15] VITALS: BP 180/83
[2020-07-10 20:30] VITALS: BP 154/74
[2020-07-10] MEDS: ATORVASTATIN CALCIUM 20 MG TABLET PO SCH (21:38)
[2020-07-10 23:16] VITALS: BP 158/84
[2020-07-11 03:26] VITALS: BP 156/76
[2020-07-11 05:31] LABS: HEMATOCRIT 30.3 % (42-54); MEAN CORPUSCULAR HEMOGLOBIN 31.2 pg (27.0-33.0); MEAN CORPUSCULAR VOLUME 97.4 fL (79-99); PLATELET COUNT (AUTO) 164 K/uL (130-400); RED BLOOD CELL COUNT(AUTO) 3.11 MIL/uL (4.50-6.20); RED CELL DISTRIBUTION WIDTH 14.5 % (11.0-15.5)
[2020-07-11 05:52] LABS: MAGNESIUM 2.6 mg/dL (1.80-2.40); PHOSPHORUS 5.3 mg/dL (2.5-4.9); POTASSIUM 5.6 mmol/L (3.5-5.1)
[2020-07-11 05:59] LABS: CREATININE 11.5 mg/dL (0.5-1.5)
[2020-07-11 06:28] LABS: BASOPHILS % (MANUAL) 1 % (0-2); EOSINOPHILS % (MANUAL) 3 % (1-6); LYMPHOCYTES % (MANUAL) 5 % (22-44); MAN.DIFF COMMENT-IMPRESSION MANUAL DIFFERENTIAL; MONOCYTES % (MANUAL) 7 % (2-9); PLATELET MORPHOLOGY COMMENT ADEQUATE; SEGMENTED NEUTROPHILS % 84 % (40-70)
[2020-07-11 07:00] VITALS: BP 164/86
[2020-07-11] MEDS: INSULIN R PO SS1/2 SQ SCH ×4 (07:22→21:26)
[2020-07-11] MEDS: INSULIN HUMULIN 70/30 100 UNIT/ML 3ML SQ SCH (07:24)
[2020-07-11] MEDS ORDERED: INSULIN LISPRO SQ SCH (07:30)
[2020-07-11] MEDS ORDERED: INSULIN NPL SQ SCH (07:30)
[2020-07-11] MEDS ORDERED: [UNRECOGNIZED DRUG - OTHER] SQ SCH (07:30)
[2020-07-11] MEDS: CHOLECALCIFEROL 2000 UNIT PO SCH (07:43)
[2020-07-11] MEDS: SEVELAMER HCL 800 MG TABLET PO SCH ×3 (08:00→17:29)
[2020-07-11] MEDS ORDERED: NON-FORMULARY MEDICATION 1 EACH (Vit B Cmplx 3/FA/Vit C/Biotin (Nephro-Vite Rx Tablet) 1 E PO SCH (09:00)
[2020-07-11] MEDS: PANTOPRAZOLE 40 MG/VIAL IVP SCH (09:00)
[2020-07-11] MEDS ORDERED: NON-FORMULARY MEDICATION 1 EACH (Amlodipine Besylate 10 MG) PO SCH (09:00)
[2020-07-11] MEDS ORDERED: CHOLECALCIFEROL 2000 UNIT PO SCH (09:00)
[2020-07-11 11:00] VITALS: BP 145/84
[2020-07-11] MEDS ORDERED: ACETAMINOPHEN 325 MG TAB PO PRN (11:15)
[2020-07-11] MEDS: METOPROLOL SUCCINATE 50 MG TAB.SR.24H PO SCH (13:29)
[2020-07-11] MEDS: CEFTRIAXONE SODIUM 1 GM IVP SCH (13:30)
[2020-07-11] MEDS: AMLODIPINE BESYLATE 5 MG TAB PO SCH (13:31)
[2020-07-11] MEDS: AZITHROMYCIN 500MG+NS 250ML 250 ML IV SCH (13:32)
[2020-07-11] MEDS: Vitamin B Complex/Vit C/Folic Acid PO SCH (13:32)
[2020-07-11] MEDS: LINAGLIPTIN 5 MG TABLET PO SCH (13:32)
[2020-07-11] MEDS: ENOXAPARIN SODIUM 30 MG/0.3 ML SQ SCH (13:33)
[2020-07-11 17:11] VITALS: BP 147/69
[2020-07-11 19:00] VITALS: BP 160/77
[2020-07-11] MEDS: ATORVASTATIN CALCIUM 20 MG TABLET PO SCH (21:24)
[2020-07-11 23:00] VITALS: BP 159/80
[2020-07-12 03:00] VITALS: BP 144/73
[2020-07-12 04:41] LABS: HEMATOCRIT 29.5 % (42-54); MEAN CORPUSCULAR HEMOGLOBIN 31.6 pg (27.0-33.0); MEAN CORPUSCULAR HGB CONC 32.9 g/dL (32.0-36.0); MEAN CORPUSCULAR VOLUME 96.1 fL (79-99); RED BLOOD CELL COUNT(AUTO) 3.07 MIL/uL (4.50-6.20); RED CELL DISTRIBUTION WIDTH 14.4 % (11.0-15.5); WHITE BLOOD COUNT (AUTO) 8.7 K/uL (4.8-10.8)
[2020-07-12 04:53] LABS: POTASSIUM 4.6 mmol/L (3.5-5.1)
[2020-07-12 04:55] LABS: CREATININE 10.1 mg/dL (0.5-1.5)
[2020-07-12] MEDS: INSULIN R PO SS1/2 SQ SCH ×4 (05:44→21:00)
[2020-07-12] MEDS: INSULIN HUMULIN 70/30 100 UNIT/ML 3ML SQ SCH (06:38)
[2020-07-12 08:23] VITALS: BP 152/80
[2020-07-12] MEDS: CHOLECALCIFEROL 2000 UNIT PO SCH (09:00)
[2020-07-12] MEDS: AZITHROMYCIN 500MG+NS 250ML 250 ML IV SCH (09:23)
[2020-07-12] MEDS: Vitamin B Complex/Vit C/Folic Acid PO SCH (09:23)
[2020-07-12] MEDS: SEVELAMER HCL 800 MG TABLET PO SCH ×3 (09:23→16:23)
[2020-07-12] MEDS: LINAGLIPTIN 5 MG TABLET PO SCH (09:23)
[2020-07-12] MEDS: CEFTRIAXONE SODIUM 1 GM IVP SCH (09:23)
[2020-07-12] MEDS: METOPROLOL SUCCINATE 50 MG TAB.SR.24H PO SCH (09:24)
[2020-07-12] MEDS: PANTOPRAZOLE 40 MG/VIAL IVP SCH (09:24)
[2020-07-12] MEDS: AMLODIPINE BESYLATE 5 MG TAB PO SCH (09:24)
[2020-07-12] MEDS: ENOXAPARIN SODIUM 30 MG/0.3 ML SQ SCH (09:25)
[2020-07-12 12:31] VITALS: BP 145/74
[2020-07-12 15:06] VITALS: BP 143/74
[2020-07-12 20:00] VITALS: BP 148/73
[2020-07-12] MEDS: ATORVASTATIN CALCIUM 20 MG TABLET PO SCH (22:00)
[2020-07-13] VITALS (7 sets, daily range): BP systolic 73–158; BP diastolic 73–78
[2020-07-13 06:04] LABS: BASOPHILS % (AUTO) 0.9 % (0.0-5.0); HEMATOCRIT 29.1 % (42-54); LYMPHOCYTES % (AUTO) 22.1 % (21.0-51.0); MEAN CORPUSCULAR HEMOGLOBIN 30.9 pg (27.0-33.0); MEAN CORPUSCULAR HGB CONC 32.3 g/dL (32.0-36.0); MEAN CORPUSCULAR VOLUME 95.7 fL (79-99); MONOCYTES % (AUTO) 9.5 % (3.0-13.0); NEUTROPHILS % (AUTO) 56.3 % (40.0-77.0); PLATELET COUNT (AUTO) 165 K/uL (130-400); RED BLOOD CELL COUNT(AUTO) 3.04 MIL/uL (4.50-6.20); RED CELL DISTRIBUTION WIDTH 14.1 % (11.0-15.5); WHITE BLOOD COUNT (AUTO) 8.1 K/uL (4.8-10.8)
[2020-07-13 06:38] LABS: B-TYPE NATRIURETIC PEPTIDE 3080 pg/mL (0-100)
[2020-07-13] MEDS: INSULIN R PO SS1/2 SQ SCH ×4 (07:30→21:00)
[2020-07-13] MEDS: INSULIN HUMULIN 70/30 100 UNIT/ML 3ML SQ SCH (07:30)
[2020-07-13] MEDS: CHOLECALCIFEROL 2000 UNIT PO SCH (09:00)
[2020-07-13] MEDS: Vitamin B Complex/Vit C/Folic Acid PO SCH (10:28)
[2020-07-13] MEDS: LINAGLIPTIN 5 MG TABLET PO SCH (10:28)
[2020-07-13] MEDS: CEFTRIAXONE SODIUM 1 GM IVP SCH (10:28)
[2020-07-13] MEDS: METOPROLOL SUCCINATE 50 MG TAB.SR.24H PO SCH (10:29)
[2020-07-13] MEDS: SEVELAMER HCL 800 MG TABLET PO SCH ×3 (10:29→18:08)
[2020-07-13] MEDS: AZITHROMYCIN 500MG+NS 250ML 250 ML IV SCH (10:29)
[2020-07-13] MEDS: AMLODIPINE BESYLATE 5 MG TAB PO SCH (10:29)
[2020-07-13] MEDS: PANTOPRAZOLE 40 MG/VIAL IVP SCH (10:32)
[2020-07-13] MEDS: ENOXAPARIN SODIUM 30 MG/0.3 ML SQ SCH (10:35)
[2020-07-13] MEDS: LOSARTAN 50 MG TABLET PO SCH (18:08)
[2020-07-13] MEDS: ATORVASTATIN CALCIUM 20 MG TABLET PO SCH (21:42)
[2020-07-14 04:35] VITALS: BP 155/81
[2020-07-14] MEDS: INSULIN R PO SS1/2 SQ SCH ×3 (05:39→16:05)
[2020-07-14 06:23] LABS: EOSINOPHILS % (AUTO) 11.8 % (0.0-8.0); HEMATOCRIT 28.6 % (42-54); LYMPHOCYTES % (AUTO) 20.6 % (21.0-51.0); MEAN CORPUSCULAR HEMOGLOBIN 30.5 pg (27.0-33.0); MEAN CORPUSCULAR HGB CONC 31.5 g/dL (32.0-36.0); MEAN CORPUSCULAR VOLUME 96.9 fL (79-99); MONOCYTES % (AUTO) 11.1 % (3.0-13.0); NEUTROPHILS % (AUTO) 54.9 % (40.0-77.0); PLATELET COUNT (AUTO) 189 K/uL (130-400); RED BLOOD CELL COUNT(AUTO) 2.95 MIL/uL (4.50-6.20); RED CELL DISTRIBUTION WIDTH 14.2 % (11.0-15.5); WHITE BLOOD COUNT (AUTO) 6.9 K/uL (4.8-10.8)
[2020-07-14] MEDS: INSULIN HUMULIN 70/30 100 UNIT/ML 3ML SQ SCH (06:31)
[2020-07-14 06:42] LABS: POTASSIUM 4.8 mmol/L (3.5-5.1)
[2020-07-14 06:44] LABS: CREATININE 8.9 mg/dL (0.5-1.5)
[2020-07-14 07:16] VITALS: BP 152/77
[2020-07-14] MEDS: CHOLECALCIFEROL 2000 UNIT PO SCH (07:57)
[2020-07-14] MEDS: PANTOPRAZOLE 40 MG/VIAL IVP SCH (09:07)
[2020-07-14] MEDS: AZITHROMYCIN 500MG+NS 250ML 250 ML IV SCH (09:07)
[2020-07-14] MEDS: CEFTRIAXONE SODIUM 1 GM IVP SCH (09:07)
[2020-07-14] MEDS: Vitamin B Complex/Vit C/Folic Acid PO SCH (09:08)
[2020-07-14] MEDS: METOPROLOL SUCCINATE 50 MG TAB.SR.24H PO SCH (09:08)
[2020-07-14] MEDS: LINAGLIPTIN 5 MG TABLET PO SCH (09:08)
[2020-07-14] MEDS: SEVELAMER HCL 800 MG TABLET PO SCH ×3 (09:08→17:03)
[2020-07-14] MEDS: AMLODIPINE BESYLATE 5 MG TAB PO SCH (09:08)
[2020-07-14] MEDS: LOSARTAN 50 MG TABLET PO SCH (09:09)
[2020-07-14] MEDS: ENOXAPARIN SODIUM 30 MG/0.3 ML SQ SCH (09:11)
[2020-07-14 11:26] VITALS: BP 126/67
[2020-07-14] MEDS ORDERED: LOSA50TA2 PO (13:45)
[2020-07-14 15:40] VITALS: BP 130/54
[2020-07-14 15:58] VITALS: BP 143/82
--- NOTE | 2020-07-14 18:00 | NUR ---
DC PT AWAKE, ALERT, AND ORIENTED. DC INSTRUCTIONS GIVEN TO PT, ACKNOWLEDGED ALL INFORMATION, ALL QUESTIONS ANSWERED. AWARE NEW RX SENT ELECTRONICALLY TO PHARMACY. MADE AWARE TO RETURN TO ER OR DIAL 911 IN CASE OF EMERGENCY.
[2020-07-16 03:08] LABS: HEPATITIS Bs ANTIGEN SCREEN P Negative (Negative)
== END 2020-07-14 18:00 | disposition home or self-care (01) | DRG 193 ==
LOC: EDH 05:18 → EDHIP 07:08 → 4BH 07-10 15:11
PROVIDERS: ADMIT Internal Medicine Nephrology; ATTEND Internal Medicine Nephrology
PROC: 5A1D70Z Performance of Urinary Filtration, Intermittent, Less than 6 Hours Per Day (ICD-10-PCS; 2020-07-09)
PROC: 5A09357 Assistance with Respiratory Ventilation, Less than 24 Consecutive Hours, Continuous Positive Airway Pressure (ICD-10-PCS; 2020-07-09)
PROC: 5A1D70Z Performance of Urinary Filtration, Intermittent, Less than 6 Hours Per Day (ICD-10-PCS; 2020-07-11)
PROC: 5A1D70Z Performance of Urinary Filtration, Intermittent, Less than 6 Hours Per Day (ICD-10-PCS; principal; 2020-07-13)
DX: J18.9 Pneumonia, unspecified organism (principal); N18.6 End stage renal disease; J96.01 Acute respiratory failure with hypoxia; E87.1 Hypo-osmolality and hyponatremia; I13.2 Hypertensive heart and chronic kidney disease with heart failure and with stage 5 chronic kidney disease, or end stage renal disease; I50.42 Chronic combined systolic (congestive) and diastolic (congestive) heart failure; I42.9 Cardiomyopathy, unspecified; E87.5 Hyperkalemia; I16.0 Hypertensive urgency; Z20.828 Contact with and (suspected) exposure to other viral communicable diseases; I25.10 Atherosclerotic heart disease of native coronary artery without angina pectoris; E11.22 Type 2 diabetes mellitus with diabetic chronic kidney disease; E78.5 Hyperlipidemia, unspecified; D64.9 Anemia, unspecified; E11.51 Type 2 diabetes mellitus with diabetic peripheral angiopathy without gangrene; Z99.2 Dependence on renal dialysis; Z83.3 Family history of diabetes mellitus; Z80.42 Family history of malignant neoplasm of prostate; Z82.49 Family history of ischemic heart disease and other diseases of the circulatory system
CPT/HCPCS: 36415; 36600; 71045; 80048; 80053; 82550; 82803; 82948; 83036; 83605; 83690; 83735; 83874; 83880; 84100; 84443; 84484; 85025; 85027; 85610; 85730; 86704; 86706; 87040; 87340; 87426; 87520; 90935; 93005; 93306; 93356; 94660; 99291; C9113; G0378; J0456; J0696; J1100; J1650; J1815; J1940; U0003

== ENCOUNTER 2020-08-05 23:56 | Inpatient (IN) | payer MEDICARE ==
[~2020-08-05] VITALS: Ht 162.6 cm; Wt 60.5 kg
[~2020-08-05 23:56] MED LIST changes: +AMLO-258 PO; -AMLO10TA7 PO; -CIPR250T6 PO; +LOSA50TA2 PO
[2020-08-06] MEDS ORDERED: NITROGLYCERIN 50 MG/D5% WATER 1 BOT ONE (00:04)
[2020-08-06 00:20] LABS: BASOPHILS % (AUTO) 0.8 % (0.0-5.0); EOSINOPHILS % (AUTO) 6.5 % (0.0-8.0); LYMPHOCYTES % (AUTO) 33.2 % (21.0-51.0); MEAN CORPUSCULAR HEMOGLOBIN 31.5 pg (27.0-33.0); MEAN CORPUSCULAR HGB CONC 31.9 g/dL (32.0-36.0); MEAN CORPUSCULAR VOLUME 98.8 fL (79-99); NEUTROPHILS % (AUTO) 52.1 % (40.0-77.0); PLATELET COUNT (AUTO) 242 K/uL (130-400); RED BLOOD CELL COUNT(AUTO) 3.24 MIL/uL (4.50-6.20); RED CELL DISTRIBUTION WIDTH 14.7 % (11.0-15.5); WHITE BLOOD COUNT (AUTO) 18.9 K/uL (4.8-10.8)
[2020-08-06] MEDS ORDERED: ASPIRIN 81MG TAB.CHEW ONE (00:22)
[2020-08-06 00:29] LABS: POTASSIUM 5.7 mmol/L (3.5-5.1)
[2020-08-06 00:33] LABS: INR 0.99 (0.85-1.15); PARTIAL THROMBOPLASTIN TIME 25.8 SEC (26.3-35.5); PROTHROMBIN TIME 10.7 SEC (9.6-11.6)
[2020-08-06 00:40] LABS: CREATININE 9.8 mg/dL (0.5-1.5)
[2020-08-06] MEDS ORDERED: ONDANSETRON HCL 4 MG/2 ML VIAL IVP PRN (02:30)
[2020-08-06] MEDS ORDERED: NITROGLYCERIN 1GM/1 INCH PACKET TD ONE (02:33)
--- NOTE | 2020-08-06 04:14 | NUR ---
ER ADMIT Arrived from ER,pt on via Nc,not in distress,Vs taken,admission care rendered.
[2020-08-06 04:15] VITALS: BP 129/61
[2020-08-06] MEDS ORDERED: METO-391 PO (04:41)
[2020-08-06] MEDS ORDERED: SACU1TAB PO (04:41)
[2020-08-06] MEDS ORDERED: FOLI1TAB61 PO (04:41)
[2020-08-06] MEDS ORDERED: BENZ-51 PO (04:41)
[2020-08-06] MEDS ORDERED: ATOR20TA65 PO (04:41)
[2020-08-06] MEDS ORDERED: LINA5TAB PO (04:41)
[2020-08-06] MEDS ORDERED: CHOL100040 PO (04:41)
[2020-08-06] MEDS ORDERED: CALC667C10 PO (04:41)
--- NOTE | 2020-08-06 05:07 | NUR ---
DIALYSIS NURSE Placed a call to [facility],made aware re order for Hemodialysi today.
--- NOTE | 2020-08-06 06:30 | NUR ---
SOB Pt c/o he feels sob.02 sat 97% on 02 at 2 lpm via Nc.Placed on Bipap per Rt.Leandro from dialysis here.Pt states he feels beter with the bipap.
[2020-08-06] MEDS: PANTOPRAZOLE 40 MG/VIAL IVP SCH (08:10)
[2020-08-06] MEDS ORDERED: ALBUMIN (HUMAN) 25% 50 ML IV SCH (08:30)
[2020-08-06] MEDS ORDERED: NITROGLYCERIN 0.4 MG SL TAB SL PRN (08:30)
[2020-08-06] MEDS ORDERED: 0.9% SODIUM CHLORIDE 1000 ML IV BAG IV PRN (08:30)
[2020-08-06] MEDS ORDERED: PHARMACY COMMUNICATION MISC PRN (08:30)
[2020-08-06] MEDS ORDERED: LIDOCAINE HCL-MPF 1% 2ML VIAL IJ PRN (08:30)
[2020-08-06] MEDS ORDERED: SODIUM CHLORIDE 0.9% 1000ML 1,000 ML IV PRN (08:30)
[2020-08-06] MEDS ORDERED: ACETAMINOPHEN 325 MG TAB PO PRN (08:30)
[2020-08-06 08:59] LABS: TROPONIN I 0.06 ng/mL (0.00-0.06)
[2020-08-06 09:19] VITALS: BP 141/77
--- NOTE | 2020-08-06 11:00 | NUR ---
MET WITH PATIENT AND SPOUSE FOR DC PLANNING PT ON BIPAP SPOUSE PROVIDED INFO, PT HAS BEEN ON HD X 6 YEARS, SPOUSE AMALIA DRIVES TO HD MWF IN [facility] [place] [facility] [place] [facility], NO PROVIDER SERVICES, HAS Barbara HEARD/CHAIR JOSÉ MIGUEL, USES ALL PRN. WILL REFER TO BILL FOR SERVICES DCP HOME. MAY NEED O2 ON THIS ADMIT, MAY NEED FOLLOW UP FOR SLEEP STUDY CM TO FOLLOW Addendum: 08/06/20 at 1713 by PHILIPP LEE RN CM Amended: Links added.
[2020-08-06] MEDS ORDERED: VANCOMYCIN PROTOCOL PER PHARMACY IV SCH (12:30)
[2020-08-06] MEDS ORDERED: RENAL DOSE IV PRN (12:30)
[2020-08-06] MEDS ORDERED: VANCOMYCIN 1.5 GM in SODIUM CHLORIDE 0.9% 250 ML IV SCH (12:30)
[2020-08-06] MEDS: ZOSYN 3.375GM+NS 50ML 50 ML IV SCH (12:44)
[2020-08-06 12:52] VITALS: BP 130/75
[2020-08-06 16:00] VITALS: BP 122/63
[2020-08-06 16:56] LABS: TROPONIN I 0.06 ng/mL (0.00-0.06)
[2020-08-06 19:35] VITALS: BP 136/69
[2020-08-07] VITALS (7 sets, daily range): BP systolic 128–155; BP diastolic 64–88
[2020-08-07] MEDS: ZOSYN 3.375GM+NS 50ML 50 ML IV SCH ×3 (00:12→23:31)
[2020-08-07] MEDS: ACETAMINOPHEN 325 MG TAB PO PRN ×2 (02:16→10:52)
--- NOTE | 2020-08-07 02:25 | NUR ---
RECLINER Pt up on a recliner,states he get's sob when he's in bed.Pt tolerating bipap.Pt c/o generalized pain,Tylenol given.
[2020-08-07 05:43] LABS: HEMATOCRIT 27.5 % (42-54); MEAN CORPUSCULAR HEMOGLOBIN 31.2 pg (27.0-33.0); MEAN CORPUSCULAR HGB CONC 31.6 g/dL (32.0-36.0); MEAN CORPUSCULAR VOLUME 98.6 fL (79-99); PLATELET COUNT (AUTO) 163 K/uL (130-400); RED BLOOD CELL COUNT(AUTO) 2.79 MIL/uL (4.50-6.20); RED CELL DISTRIBUTION WIDTH 14.6 % (11.0-15.5); WHITE BLOOD COUNT (AUTO) 7.8 K/uL (4.8-10.8)
[2020-08-07 06:00] LABS: CREATININE 6.8 mg/dL (0.5-1.5); PHOSPHORUS 2.4 mg/dL (2.5-4.9); POTASSIUM 5.3 mmol/L (3.5-5.1)
[2020-08-07 06:03] LABS: BAND NEUTROPHILS % (MANUAL) 1 % (0-2); BASOPHILS % (MANUAL) 1 % (0-2); EOSINOPHILS % (MANUAL) 9 % (1-6); LYMPHOCYTES % (MANUAL) 12 % (22-44); MAN.DIFF COMMENT-IMPRESSION MANUAL DIFFERENTIAL; MONOCYTES % (MANUAL) 9 % (2-9); PLATELET MORPHOLOGY COMMENT ADEQUATE; REACTIVE LYMPHOCYTES 3 % (0-0); SEGMENTED NEUTROPHILS % 65 % (40-70)
[2020-08-07 07:16] LABS: HEPATITIS A ANTIBODY IGM Negative (Negative); HEPATITIS B CORE IGM Negative (Negative); HEPATITIS Bs ANTIGEN SCREEN P Negative (Negative)
[2020-08-07] MEDS: PANTOPRAZOLE 40 MG/VIAL IVP SCH (10:52)
[2020-08-08 04:00] VITALS: BP 131/78
[2020-08-08 05:35] LABS: BASOPHILS % (AUTO) 0.8 % (0.0-5.0); HEMATOCRIT 27.5 % (42-54); LYMPHOCYTES % (AUTO) 16.6 % (21.0-51.0); MEAN CORPUSCULAR HEMOGLOBIN 31.4 pg (27.0-33.0); MEAN CORPUSCULAR HGB CONC 31.6 g/dL (32.0-36.0); MEAN CORPUSCULAR VOLUME 99.3 fL (79-99); MONOCYTES % (AUTO) 7.9 % (3.0-13.0); NEUTROPHILS % (AUTO) 69.2 % (40.0-77.0); PLATELET COUNT (AUTO) 167 K/uL (130-400); RED BLOOD CELL COUNT(AUTO) 2.77 MIL/uL (4.50-6.20); RED CELL DISTRIBUTION WIDTH 15.1 % (11.0-15.5); WHITE BLOOD COUNT (AUTO) 10.7 K/uL (4.8-10.8)
[2020-08-08 06:30] LABS: CREATININE 8.9 mg/dL (0.5-1.5); POTASSIUM 6.3 mmol/L (3.5-5.1)
--- NOTE | 2020-08-08 07:22 | NUR ---
Clarification regarding VANCOMYCIN: (Pharmacist)was asked if pt. was really given Vancomycin IV last august 06. According to their records pt was not given, thus need to be given Vancomycin IV after dialysis today and to check the Vancomycin Trough before Dialysis on Wednesday. Day shift RN ( Nishi) made aware.
[2020-08-08] MEDS ORDERED: COMPOUND IV REFRIGERATED 1 EACH IVSOLN MISC PRN (07:45)
[2020-08-08 07:59] VITALS: BP 146/85
[2020-08-08] MEDS: PANTOPRAZOLE 40 MG/VIAL IVP SCH (10:24)
[2020-08-08 11:29] VITALS: BP 124/69
[2020-08-08] MEDS: ZOSYN 3.375GM+NS 50ML 50 ML IV SCH (11:58)
[2020-08-08] MEDS ORDERED: VANCOMYCIN 1GM+NS 250ML 250 ML IV SCH (12:00)
[2020-08-08] MEDS ORDERED: VANCOMYCIN 1.25 GM in SODIUM CHLORIDE 0.9% 250 ML IV SCH (12:00)
[2020-08-08] MEDS: IPRATROPIUM/ALBUTEROL SULFATE 3 ML SOLUTION IH SCH ×3 (14:19→23:14)
[2020-08-08] MEDS: ACETYLCYSTEINE 600 MG CAPSULE PO SCH ×2 (14:45→21:52)
--- NOTE | 2020-08-08 16:05 | NUR ---
RD NOTIFICATION Pt admitted due to pulmonary edema and respiratory failure. At time of visit pt with nasal canula, pt has episodes of cough. Pt stated going to outpatient dialysis Wednesday, and Wednesday. Pt also stated he gets tired of eating and struggles with food not being chopped. As per pt's request and pt's , diet modification for finely chopped and soft foods will be placed. Pt's PO intake varies from 25-75%. Current diet order: Renal Dialysis Diet RD recommendation: Add diet modification of 75 gm CC, finely chopped and mechanical soft. Nepro QD Monitor PO intake and labs, monitor input/output Request for Albumin labs. LABS: NA 132, K 6.3, CL 92, BUN 43, CREAT 8.9, BG 245, PHOS 2.4, TOT CA 9.1 LBM:08/08/20 Addendum: 08/08/20 at [address] Amended: Links added.
[2020-08-08 16:06] VITALS: BP 116/61
[2020-08-08 19:54] VITALS: BP 130/66
[2020-08-08] MEDS: ATORVASTATIN CALCIUM 20 MG TABLET PO SCH (21:52)
[2020-08-08 23:55] VITALS: BP 129/69
[2020-08-09] MEDS: ZOSYN 3.375GM+NS 50ML 50 ML IV SCH ×2 (00:28→15:04)
[2020-08-09 04:00] VITALS: BP 128/68
[2020-08-09 05:37] LABS: BASOPHILS % (AUTO) 0.9 % (0.0-5.0); HEMATOCRIT 25.5 % (42-54); LYMPHOCYTES % (AUTO) 18.3 % (21.0-51.0); MEAN CORPUSCULAR HEMOGLOBIN 31.3 pg (27.0-33.0); MEAN CORPUSCULAR VOLUME 101.2 fL (79-99); MONOCYTES % (AUTO) 11.8 % (3.0-13.0); NEUTROPHILS % (AUTO) 61.6 % (40.0-77.0); PLATELET COUNT (AUTO) 138 K/uL (130-400); RED BLOOD CELL COUNT(AUTO) 2.52 MIL/uL (4.50-6.20); RED CELL DISTRIBUTION WIDTH 15.6 % (11.0-15.5); WHITE BLOOD COUNT (AUTO) 7.7 K/uL (4.8-10.8)
[2020-08-09 05:43] LABS: CREATININE 7.3 mg/dL (0.5-1.5); MAGNESIUM 2.2 mg/dL (1.80-2.40); PHOSPHORUS 4.2 mg/dL (2.5-4.9); POTASSIUM 4.4 mmol/L (3.5-5.1)
[2020-08-09] MEDS: IPRATROPIUM/ALBUTEROL SULFATE 3 ML SOLUTION IH SCH ×3 (06:33→18:34)
[2020-08-09] MEDS: VITAMIN D 2000 UNITS PO SCH (07:57)
[2020-08-09 08:00] VITALS: BP 139/68
[2020-08-09] MEDS ORDERED: CHOLECALCIFEROL 2000 UNIT PO SCH (09:00)
[2020-08-09] MEDS ORDERED: NON-FORMULARY MEDICATION 1 EACH (Vit B Cmplx 3/FA/Vit C/Biotin (Nephro-Vite Rx Tablet) 1 E PO SCH (09:00)
[2020-08-09] MEDS: ACETYLCYSTEINE 600 MG CAPSULE PO SCH ×2 (09:43→21:57)
[2020-08-09] MEDS: PANTOPRAZOLE 40 MG/VIAL IVP SCH (09:43)
[2020-08-09] MEDS: Vitamin B Complex/Vit C/Folic Acid PO SCH (09:43)
[2020-08-09] MEDS: LINAGLIPTIN 5 MG TABLET PO SCH (09:43)
[2020-08-09 12:00] VITALS: BP 134/62
--- NOTE | 2020-08-09 14:00 | NUR ---
PLAN OF CARE DISCUSSED WITH DR. BERRIOS THIS CM INQUIRING RE PULMONARY CONSULT R/T HIGH O2 USE AT THIS TIME- 4L NC DR BERRIOS HOPEFUL THAT BY REMOVING MORE FLUID DURING HD, MAY BE ABLE TOBAVOID NEED FOR O2 ON DISCHARGE. NO PULMONOLOGY CONSULT AT THIS TIME CM TO FOLLOW . Addendum: 08/09/20 at 1828 by PHILIPP LEE RN CM Amended: Links added.
[2020-08-09 17:46] VITALS: BP 137/69
--- NOTE | 2020-08-09 18:09 | NUR ---
DR BERRIOS IS PAGE TWICE REGARDING PT ELEVATED BLOOD GLUCOSE OF 421 AND NO COVER MEDICATION. WAITING CALL BACK.
[2020-08-09 20:00] VITALS: BP 132/72
[2020-08-09] MEDS: ATORVASTATIN CALCIUM 20 MG TABLET PO SCH (21:57)
[2020-08-09] MEDS: INSULIN HUMULIN R 100 UNIT/ML 3ML SQ SCH (21:59)
[2020-08-09 23:52] VITALS: BP 138/69
[2020-08-10] MEDS: ZOSYN 3.375GM+NS 50ML 50 ML IV SCH ×2 (03:13→12:05)
[2020-08-10 03:41] VITALS: BP 137/69
[2020-08-10 06:11] LABS: HEMATOCRIT 24.5 % (42-54); MEAN CORPUSCULAR HEMOGLOBIN 31.6 pg (27.0-33.0); MEAN CORPUSCULAR HGB CONC 32.2 g/dL (32.0-36.0); PLATELET COUNT (AUTO) 132 K/uL (130-400); RED CELL DISTRIBUTION WIDTH 15.5 % (11.0-15.5); WHITE BLOOD COUNT (AUTO) 6.4 K/uL (4.8-10.8)
[2020-08-10] MEDS: IPRATROPIUM/ALBUTEROL SULFATE 3 ML SOLUTION IH SCH ×5 (06:12→23:17)
[2020-08-10 06:28] LABS: BILIRUBIN,TOTAL 0.5 mg/dL (0.2-1.0); CREATININE 6.7 mg/dL (0.5-1.5); POTASSIUM 3.5 mmol/L (3.5-5.1); TOTAL PROTEIN, SERUM 7.2 g/dL (6.0-8.3)
[2020-08-10] MEDS ORDERED: NITROGLYCERIN 0.4 MG SL TAB SL PRN (07:00)
[2020-08-10] MEDS ORDERED: SODIUM CHLORIDE 0.9% 1000ML 1,000 ML IV PRN (07:00)
[2020-08-10] MEDS ORDERED: HEPARIN SODIUM 5000UNIT/ML 1ML VIAL IJ PRN ×2 (07:00)
[2020-08-10] MEDS ORDERED: ACETAMINOPHEN 325 MG TAB PO PRN (07:00)
[2020-08-10] MEDS ORDERED: PHARMACY COMMUNICATION MISC PRN (07:00)
[2020-08-10] MEDS ORDERED: LIDOCAINE HCL-MPF 1% 2ML VIAL IJ PRN (07:00)
[2020-08-10] MEDS ORDERED: 0.9% SODIUM CHLORIDE 1000 ML IV BAG IV PRN (07:00)
[2020-08-10] MEDS: INSULIN HUMULIN R 100 UNIT/ML 3ML SQ SCH ×4 (07:30→20:43)
[2020-08-10 08:28] LABS: EOSINOPHILS % (MANUAL) 6 % (1-6); LYMPHOCYTES % (MANUAL) 13 % (22-44); MAN.DIFF COMMENT-IMPRESSION MANUAL DIFFERENTIAL; MONOCYTES % (MANUAL) 2 % (2-9); SEGMENTED NEUTROPHILS % 79 % (40-70)
[2020-08-10 08:29] VITALS: BP_SYST 122; BP_SYST 124; BP_DIAS 61; BP_DIAS 69
[2020-08-10 08:29] LABS: PLATELET MORPHOLOGY COMMENT ADEQUATE
[2020-08-10] MEDS: VITAMIN D 2000 UNITS PO SCH (09:00)
[2020-08-10] MEDS: PANTOPRAZOLE 40 MG/VIAL IVP SCH (09:20)
[2020-08-10] MEDS: LINAGLIPTIN 5 MG TABLET PO SCH (09:20)
[2020-08-10] MEDS: ACETYLCYSTEINE 600 MG CAPSULE PO SCH ×2 (09:20→19:28)
[2020-08-10] MEDS: Vitamin B Complex/Vit C/Folic Acid PO SCH (09:21)
[2020-08-10 12:00] VITALS: BP 122/59
[2020-08-10] MEDS ORDERED: VANCOMYCIN 1GM+NS 250ML 250 ML IV SCH (14:52)
[2020-08-10] MEDS: AZITHROMYCIN 500MG+NS 250ML 250 ML IV SCH (15:16)
[2020-08-10 16:00] VITALS: BP 126/54
[2020-08-10] MEDS: ATORVASTATIN CALCIUM 20 MG TABLET PO SCH (19:27)
[2020-08-10 20:00] VITALS: BP 119/59
[2020-08-11] VITALS: BP 126/64
[2020-08-11] MEDS: ZOSYN 3.375GM+NS 50ML 50 ML IV SCH ×2 (00:21→12:59)
[2020-08-11 04:00] VITALS: BP 131/66
[2020-08-11] MEDS: INSULIN HUMULIN R 100 UNIT/ML 3ML SQ SCH ×4 (05:54→21:49)
[2020-08-11 06:14] LABS: HEMATOCRIT 25.7 % (42-54); MEAN CORPUSCULAR HEMOGLOBIN 31.3 pg (27.0-33.0); MEAN CORPUSCULAR HGB CONC 30.7 g/dL (32.0-36.0); PLATELET COUNT (AUTO) 134 K/uL (130-400); RED BLOOD CELL COUNT(AUTO) 2.52 MIL/uL (4.50-6.20); RED CELL DISTRIBUTION WIDTH 15.9 % (11.0-15.5); WHITE BLOOD COUNT (AUTO) 6.6 K/uL (4.8-10.8)
[2020-08-11 06:32] LABS: CREATININE 6.4 mg/dL (0.5-1.5); POTASSIUM 3.7 mmol/L (3.5-5.1)
[2020-08-11] MEDS: IPRATROPIUM/ALBUTEROL SULFATE 3 ML SOLUTION IH SCH ×4 (07:06→23:23)
[2020-08-11 08:00] LABS: EOSINOPHILS % (MANUAL) 1 % (1-6); LYMPHOCYTES % (MANUAL) 28 % (22-44); MAN.DIFF COMMENT-IMPRESSION MANUAL DIFFERENTIAL; MONOCYTES % (MANUAL) 2 % (2-9); PLATELET MORPHOLOGY COMMENT ADEQUATE; SEGMENTED NEUTROPHILS % 69 % (40-70)
[2020-08-11 08:57] VITALS: BP 134/65
[2020-08-11] MEDS: PANTOPRAZOLE 40 MG/VIAL IVP SCH (09:00)
[2020-08-11] MEDS: Vitamin B Complex/Vit C/Folic Acid PO SCH (09:00)
[2020-08-11] MEDS: LINAGLIPTIN 5 MG TABLET PO SCH (09:00)
[2020-08-11] MEDS: VITAMIN D 2000 UNITS PO SCH (09:00)
[2020-08-11] MEDS: ACETYLCYSTEINE 600 MG CAPSULE PO SCH ×2 (09:00→20:21)
[2020-08-11 12:00] VITALS: BP 132/74
[2020-08-11] MEDS: AZITHROMYCIN 500MG+NS 250ML 250 ML IV SCH (15:39)
[2020-08-11 16:00] VITALS: BP 116/54
[2020-08-11] MEDS: ATORVASTATIN CALCIUM 20 MG TABLET PO SCH (20:21)
[2020-08-11 21:09] VITALS: BP 120/65
[2020-08-12] VITALS (7 sets, daily range): BP systolic 109–150; BP diastolic 52–75
[2020-08-12] MEDS: ZOSYN 3.375GM+NS 50ML 50 ML IV SCH ×2 (00:41→13:06)
[2020-08-12 06:05] LABS: HEMATOCRIT 23.8 % (42-54); MEAN CORPUSCULAR HEMOGLOBIN 31.6 pg (27.0-33.0); MEAN CORPUSCULAR HGB CONC 31.1 g/dL (32.0-36.0); MEAN CORPUSCULAR VOLUME 101.7 fL (79-99); PLATELET COUNT (AUTO) 133 K/uL (130-400); RED BLOOD CELL COUNT(AUTO) 2.34 MIL/uL (4.50-6.20); RED CELL DISTRIBUTION WIDTH 15.8 % (11.0-15.5)
[2020-08-12] MEDS: IPRATROPIUM/ALBUTEROL SULFATE 3 ML SOLUTION IH SCH ×4 (06:26→23:33)
[2020-08-12 06:27] LABS: ALBUMIN 2.5 g/dL (3.5-5.0); BILIRUBIN,TOTAL 0.5 mg/dL (0.2-1.0); POTASSIUM 3.8 mmol/L (3.5-5.1); TOTAL PROTEIN, SERUM 6.8 g/dL (6.0-8.3)
[2020-08-12 06:30] LABS: CREATININE 8.2 mg/dL (0.5-1.5)
[2020-08-12] MEDS: INSULIN HUMULIN R 100 UNIT/ML 3ML SQ SCH ×4 (06:52→20:45)
[2020-08-12 07:19] LABS: BAND NEUTROPHILS % (MANUAL) 1 % (0-2); EOSINOPHILS % (MANUAL) 12 % (1-6); LYMPHOCYTES % (MANUAL) 9 % (22-44); MAN.DIFF COMMENT-IMPRESSION MANUAL DIFFERENTIAL; MONOCYTES % (MANUAL) 8 % (2-9); PLATELET MORPHOLOGY COMMENT ADEQUATE; SEGMENTED NEUTROPHILS % 70 % (40-70)
[2020-08-12] MEDS: VITAMIN D 2000 UNITS PO SCH (09:00)
--- NOTE | 2020-08-12 09:19 | NUR ---
CHART REVIEWED, NOTE MADE OF DECREASING NEED FOR O2, IRON MUNOZ CM HERE TO ASSIST W DC PLANNIG NEEDS IF THEY SHOULD INCLUDE HOME O2. Addendum: 08/12/20 at 0922 by PHILIPP LEE RN CM Amended: Links added.
[2020-08-12] MEDS: PANTOPRAZOLE 40 MG/VIAL IVP SCH (09:44)
[2020-08-12] MEDS: ACETYLCYSTEINE 600 MG CAPSULE PO SCH ×2 (09:45→21:00)
[2020-08-12] MEDS: Vitamin B Complex/Vit C/Folic Acid PO SCH (09:45)
[2020-08-12] MEDS: LINAGLIPTIN 5 MG TABLET PO SCH (09:45)
--- NOTE | 2020-08-12 13:01 | NUR ---
RD FOLLOW UP Pt continues with Renal Dialysis, 75gm CC, Finely chopped, mechanical soft diet order with no report of GI distress. Fair PO intake with oral nutrition supplement in place. Monitored labs: Na 147, BUN 28, Cr 8.2, GFR 7, BG 223, Ca 8.0, Alb 2.5. Albuterol, MVI, N-KIMBERLEY, Piperacillin, Lipitor, Azithromycin medications in place. Pt continues with 1 L Fluid restriction. Pt with dehydration/hypernatremia. Recommend continue current diet order Recommend liberalize fluid restriction to 1.5 L per day as medically feasible. RD to continue to monitor. Addendum: 08/12/20 at [address] Amended: Links added.
[2020-08-12] MEDS: ATORVASTATIN CALCIUM 20 MG TABLET PO SCH (21:00)
[2020-08-12] MEDS: AZITHROMYCIN 500MG+NS 250ML 250 ML IV SCH (21:00)
[2020-08-13] MEDS: ZOSYN 3.375GM+NS 50ML 50 ML IV SCH ×2 (00:52→12:30)
[2020-08-13 03:31] VITALS: BP 120/69
[2020-08-13 04:22] LABS: EOSINOPHILS % (AUTO) 11.3 % (0.0-8.0); HEMATOCRIT 26.5 % (42-54); LYMPHOCYTES % (AUTO) 13.9 % (21.0-51.0); MEAN CORPUSCULAR HEMOGLOBIN 31.4 pg (27.0-33.0); MEAN CORPUSCULAR HGB CONC 31.3 g/dL (32.0-36.0); MEAN CORPUSCULAR VOLUME 100.4 fL (79-99); MONOCYTES % (AUTO) 8.1 % (3.0-13.0); NEUTROPHILS % (AUTO) 65.2 % (40.0-77.0); PLATELET COUNT (AUTO) 142 K/uL (130-400); RED BLOOD CELL COUNT(AUTO) 2.64 MIL/uL (4.50-6.20); RED CELL DISTRIBUTION WIDTH 15.9 % (11.0-15.5); WHITE BLOOD COUNT (AUTO) 8.7 K/uL (4.8-10.8)
[2020-08-13 04:39] LABS: VANCOMYCIN LEVEL 24.4 mcg/mL (18.0-26.0)
[2020-08-13] MEDS: IPRATROPIUM/ALBUTEROL SULFATE 3 ML SOLUTION IH SCH ×4 (06:30→23:39)
[2020-08-13] MEDS: INSULIN HUMULIN R 100 UNIT/ML 3ML SQ SCH ×4 (06:43→20:22)
[2020-08-13 07:30] VITALS: BP 132/68
[2020-08-13] MEDS: VITAMIN D 2000 UNITS PO SCH (07:58)
[2020-08-13] MEDS ORDERED: VANCOMYCIN 1GM+NS 250ML 250 ML IV SCH (09:00)
[2020-08-13] MEDS: Vitamin B Complex/Vit C/Folic Acid PO SCH (10:25)
[2020-08-13] MEDS: LINAGLIPTIN 5 MG TABLET PO SCH (10:25)
[2020-08-13] MEDS: ACETYLCYSTEINE 600 MG CAPSULE PO SCH ×2 (10:25→20:14)
[2020-08-13] MEDS: PANTOPRAZOLE 40 MG/VIAL IVP SCH (10:25)
[2020-08-13] MEDS ORDERED: COMPOUND IV REFRIGERATED 1 EACH IVSOLN MISC PRN (10:45)
[2020-08-13 11:00] VITALS: BP 143/74
[2020-08-13 16:00] VITALS: BP 135/66
[2020-08-13] MEDS: VANCOMYCIN 750MG + NS 250 ML IV SCH ×2 (16:18)
[2020-08-13 19:47] VITALS: BP 127/63
[2020-08-13] MEDS: ATORVASTATIN CALCIUM 20 MG TABLET PO SCH (20:14)
[2020-08-13] MEDS: AZITHROMYCIN 500MG+NS 250ML 250 ML IV SCH (20:14)
[2020-08-14] VITALS (7 sets, daily range): BP systolic 92–157; BP diastolic 47–76
[2020-08-14] MEDS: ZOSYN 3.375GM+NS 50ML 50 ML IV SCH ×3 (01:05→23:22)
[2020-08-14] MEDS: INSULIN HUMULIN R 100 UNIT/ML 3ML SQ SCH ×4 (05:32→20:00)
[2020-08-14 06:10] LABS: BASOPHILS % (AUTO) 0.9 % (0.0-5.0); EOSINOPHILS % (AUTO) 13.6 % (0.0-8.0); HEMATOCRIT 25.5 % (42-54); LYMPHOCYTES % (AUTO) 15.2 % (21.0-51.0); MEAN CORPUSCULAR HEMOGLOBIN 31.3 pg (27.0-33.0); MEAN CORPUSCULAR HGB CONC 31.4 g/dL (32.0-36.0); MEAN CORPUSCULAR VOLUME 99.6 fL (79-99); MONOCYTES % (AUTO) 10.9 % (3.0-13.0); NEUTROPHILS % (AUTO) 59.1 % (40.0-77.0); PLATELET COUNT (AUTO) 135 K/uL (130-400); RED BLOOD CELL COUNT(AUTO) 2.56 MIL/uL (4.50-6.20); RED CELL DISTRIBUTION WIDTH 15.8 % (11.0-15.5); WHITE BLOOD COUNT (AUTO) 7.9 K/uL (4.8-10.8)
[2020-08-14 06:31] LABS: BILIRUBIN,TOTAL 0.7 mg/dL (0.2-1.0); CREATININE 5.2 mg/dL (0.5-1.5); TOTAL PROTEIN, SERUM 7.1 g/dL (6.0-8.3)
[2020-08-14] MEDS: IPRATROPIUM/ALBUTEROL SULFATE 3 ML SOLUTION IH SCH ×4 (07:24→23:08)
[2020-08-14] MEDS: VITAMIN D 2000 UNITS PO SCH (09:00)
[2020-08-14] MEDS: PANTOPRAZOLE 40 MG/VIAL IVP SCH (09:19)
[2020-08-14] MEDS: ACETYLCYSTEINE 600 MG CAPSULE PO SCH ×2 (09:19→19:46)
[2020-08-14] MEDS: LINAGLIPTIN 5 MG TABLET PO SCH (09:19)
[2020-08-14] MEDS: Vitamin B Complex/Vit C/Folic Acid PO SCH (09:19)
[2020-08-14 16:19] LABS: ABG BASE EXCESS 3.4 mmol/L (-2.0-3.0); ABG HCO3 26.1 mmol/L (21.0-28.0); ABG OXYGEN SATURATION 94.9 % (95.0-99.0); ABG PCO2 34 mmHg (35-48)
[2020-08-14] MEDS: AZITHROMYCIN 500MG+NS 250ML 250 ML IV SCH (19:46)
[2020-08-14] MEDS: ATORVASTATIN CALCIUM 20 MG TABLET PO SCH (19:46)
[2020-08-15 04:04] VITALS: BP 128/65
[2020-08-15 05:24] LABS: BASOPHILS % (AUTO) 0.8 % (0.0-5.0); EOSINOPHILS % (AUTO) 13.3 % (0.0-8.0); HEMATOCRIT 25.6 % (42-54); LYMPHOCYTES % (AUTO) 15.2 % (21.0-51.0); MEAN CORPUSCULAR HEMOGLOBIN 31.8 pg (27.0-33.0); MEAN CORPUSCULAR HGB CONC 31.6 g/dL (32.0-36.0); MEAN CORPUSCULAR VOLUME 100.4 fL (79-99); MONOCYTES % (AUTO) 8.3 % (3.0-13.0); PLATELET COUNT (AUTO) 134 K/uL (130-400); RED BLOOD CELL COUNT(AUTO) 2.55 MIL/uL (4.50-6.20); RED CELL DISTRIBUTION WIDTH 15.8 % (11.0-15.5); WHITE BLOOD COUNT (AUTO) 8.4 K/uL (4.8-10.8)
[2020-08-15 05:43] LABS: CREATININE 7.1 mg/dL (0.5-1.5); POTASSIUM 4.2 mmol/L (3.5-5.1)
[2020-08-15] MEDS: INSULIN HUMULIN R 100 UNIT/ML 3ML SQ SCH ×4 (05:48→20:44)
[2020-08-15] MEDS: IPRATROPIUM/ALBUTEROL SULFATE 3 ML SOLUTION IH SCH ×4 (06:55→23:53)
[2020-08-15 07:30] VITALS: BP 135/68
[2020-08-15] MEDS: ACETYLCYSTEINE 600 MG CAPSULE PO SCH ×2 (08:24→20:41)
[2020-08-15] MEDS: LINAGLIPTIN 5 MG TABLET PO SCH (08:24)
[2020-08-15] MEDS: PANTOPRAZOLE 40 MG/VIAL IVP SCH (08:24)
[2020-08-15] MEDS: Vitamin B Complex/Vit C/Folic Acid PO SCH (08:24)
[2020-08-15] MEDS: VITAMIN D 2000 UNITS PO SCH (08:24)
[2020-08-15] MEDS: VANCOMYCIN 750MG + NS 250 ML IV SCH ×2 (09:58)
[2020-08-15 11:00] VITALS: BP 125/61
[2020-08-15] MEDS: ZOSYN 3.375GM+NS 50ML 50 ML IV SCH (12:01)
--- NOTE | 2020-08-15 12:19 | NUR ---
RD EDUCATION Pt has been placed on a 1 liter fluid restriction as per . RD was consulted for diet education on fluid restriction. Pt and pt's were advised to follow 's recommendation of [address] explained what foods would take part of his daily fluid needs. Handouts were given in Romanian, RD reinforced information several times to pt and pt's . RD also wrote instructions in Slovak for pt's daughter to read and aid upon discharge. Pt and pt's will need reinforcement on fluid restriction. RD will continue to follow. Contact as nutritional concerns arise. Thank you. Addendum: 08/15/20 at [address] Amended: Links added.
--- NOTE | 2020-08-15 13:38 | NUR ---
CALL TO ESPERANZA CARTER FOR BENCHMARK T/C PLACED TO ESPERANZA CARTER, INFORMED OF NEW CONSULT.
[2020-08-15 16:00] VITALS: BP 137/62
[2020-08-15 19:00] VITALS: BP 140/68
[2020-08-15] MEDS: AZITHROMYCIN 500MG+NS 250ML 250 ML IV SCH (20:40)
[2020-08-15] MEDS: ATORVASTATIN CALCIUM 20 MG TABLET PO SCH (20:41)
[2020-08-15 23:58] VITALS: BP 114/57
[2020-08-16] MEDS: ZOSYN 3.375GM+NS 50ML 50 ML IV SCH (00:21)
[2020-08-16] MEDS: ACETAMINOPHEN 325 MG TAB PO PRN ×2 (00:22→11:58)
[2020-08-16 04:00] VITALS: BP 136/54
[2020-08-16 04:11] LABS: HEMATOCRIT 25.8 % (42-54); MEAN CORPUSCULAR HEMOGLOBIN 31.1 pg (27.0-33.0); MEAN CORPUSCULAR VOLUME 100.4 fL (79-99); RED BLOOD CELL COUNT(AUTO) 2.57 MIL/uL (4.50-6.20); RED CELL DISTRIBUTION WIDTH 15.9 % (11.0-15.5); WHITE BLOOD COUNT (AUTO) 8.2 K/uL (4.8-10.8)
[2020-08-16 04:22] LABS: CREATININE 5.4 mg/dL (0.5-1.5)
[2020-08-16] MEDS: IPRATROPIUM/ALBUTEROL SULFATE 3 ML SOLUTION IH SCH ×3 (06:23→19:10)
[2020-08-16] MEDS: INSULIN HUMULIN R 100 UNIT/ML 3ML SQ SCH ×4 (07:20→21:00)
[2020-08-16] MEDS: VITAMIN D 2000 UNITS PO SCH (07:58)
[2020-08-16 08:06] VITALS: BP 124/60
[2020-08-16] MEDS: Vitamin B Complex/Vit C/Folic Acid PO SCH (09:10)
[2020-08-16] MEDS: ACETYLCYSTEINE 600 MG CAPSULE PO SCH ×2 (09:11→21:48)
[2020-08-16] MEDS: PANTOPRAZOLE 40 MG/VIAL IVP SCH (09:11)
[2020-08-16] MEDS: LINAGLIPTIN 5 MG TABLET PO SCH (09:11)
[2020-08-16 11:56] VITALS: BP 145/66
[2020-08-16 15:57] VITALS: BP 147/78
--- NOTE | 2020-08-16 16:06 | NUR ---
WIL NEEDS- O2 AT HOME AND SLEEP STUDY ARRANGED O2 ORDERS AND QUALIFYING SATS/GUSTAVO/DR. LOPEZ COSIGN SENT TO [facility]; SLEEP STUDY FIRST NIGHT SCHEDULED FOR August AT 830 PM UNTIL 600 AM
[2020-08-16 20:02] VITALS: BP 126/69
[2020-08-16] MEDS: ATORVASTATIN CALCIUM 20 MG TABLET PO SCH (21:49)
[2020-08-16 23:40] VITALS: BP 117/60
[2020-08-17] MEDS: IPRATROPIUM/ALBUTEROL SULFATE 3 ML SOLUTION IH SCH ×3 (00:13→11:14)
--- NOTE | 2020-08-17 04:02 | NUR ---
PATIENT UPDATE PT REQUESTED TO HAVE THE BIPAP MACHINE ON AT 0029 FROM 2L OF NASAL CANNULA AND REQUESTED FOR IT TO BE TAKEN OFF AT 0130, STATED THAT HE'S CONGESTED AND HE NEEDS TO COUGH WITHOUT IT ON. ROOM AIR AND PT WAS MAINTAINING BET 94-96? ON ROOM AIR. RALES PER AUSCULTATION ON THE UPPER LUNG TANG, SCHEDULED FOR HEMODIALYSIS THIS AM. CALLED DR. Aliyah BERRIOS LAST NIGHT ABOUT THE IV ANTIBIOTIC ERYTHROMYCIN WHEN PT IS FOR DISCHARGE TO HOME THIS AM, ORDERED TO D/C IV ANTIBIOTIC.
[2020-08-17 04:22] VITALS: BP 143/69
[2020-08-17 05:13] LABS: HEMATOCRIT 27.9 % (42-54); MEAN CORPUSCULAR HEMOGLOBIN 31.2 pg (27.0-33.0); MEAN CORPUSCULAR HGB CONC 31.2 g/dL (32.0-36.0); PLATELET COUNT (AUTO) 166 K/uL (130-400); RED BLOOD CELL COUNT(AUTO) 2.79 MIL/uL (4.50-6.20); RED CELL DISTRIBUTION WIDTH 15.8 % (11.0-15.5); WHITE BLOOD COUNT (AUTO) 9.5 K/uL (4.8-10.8)
[2020-08-17 05:22] LABS: CREATININE 7.6 mg/dL (0.5-1.5); POTASSIUM 4.4 mmol/L (3.5-5.1)
[2020-08-17] MEDS: INSULIN HUMULIN R 100 UNIT/ML 3ML SQ SCH ×3 (06:39→16:30)
[2020-08-17 07:01] LABS: BAND NEUTROPHILS % (MANUAL) 3 % (0-2); BASOPHILS % (MANUAL) 2 % (0-2); EOSINOPHILS % (MANUAL) 9 % (1-6); LYMPHOCYTES % (MANUAL) 13 % (22-44); MAN.DIFF COMMENT-IMPRESSION MANUAL DIFFERENTIAL; MONOCYTES % (MANUAL) 5 % (2-9); SEGMENTED NEUTROPHILS % 68 % (40-70)
[2020-08-17 07:02] LABS: PLATELET MORPHOLOGY COMMENT ADEQUATE
[2020-08-17 08:00] VITALS: BP 153/73
--- NOTE | 2020-08-17 09:00 | NUR ---
AM ASSESSMENT PT SITTING IN RECLINER, WATCHING TV. SPOUSE @ BEDSIDE. A/O X 3, FORGETFUL @ TIMES. SOB ON EXERTION. NO DISTRESS NOTED. O2 NC @ 2L. DENIES CHEST PAIN OR DISCOMFORT. TELE: SR. DENIES N/V AND/OR DIARRHEA. ANURIC. ESRD, HD TTS. PT TO HAVE HD TODAY. LT AV-FISTULA, (+) THRILL/(+) BRUIT. LT ARM PRECAUTIONS IN PLACE. UP W/ASSISTANCE. INSTRUCTED TO CALL FOR ASSISTANCE. CALL DAV W/IN REACH.
[2020-08-17] MEDS: VANCOMYCIN 750MG + NS 250 ML IV SCH ×2 (10:31)
[2020-08-17 11:59] VITALS: BP 141/82
[2020-08-17] MEDS ORDERED: EPOETIN ALFA 10,000 UNIT/ML VIAL SQ SCH (14:45)
[2020-08-17] MEDS: Vitamin B Complex/Vit C/Folic Acid PO SCH (15:57)
[2020-08-17] MEDS: PANTOPRAZOLE 40 MG/VIAL IVP SCH (15:57)
[2020-08-17] MEDS: ACETYLCYSTEINE 600 MG CAPSULE PO SCH (15:57)
[2020-08-17] MEDS: LINAGLIPTIN 5 MG TABLET PO SCH (15:57)
[2020-08-17] MEDS: VITAMIN D 2000 UNITS PO SCH (15:57)
[2020-08-17 16:00] VITALS: BP 129/65
--- NOTE | 2020-08-17 16:33 | NUR ---
CM NOTE/OXYGEN LENDING REFERRAL FOR HOME OXYGEN SENT TO [facility] PATIENT BY CM. [facility]IENT TO [place] [facility] [place], [facility] [place] TO LEND O2 PORTABLE TANK AND 02 CONCENTRATOR. MET WITH PATIENT AND SPOUSE AT BEDSIDE FOR LENDING OF DME. PATIENT AND SPOUSE VERBALIZED UNDERSTANDING OF LENDING AND OF RETURN OF DME, PAPEWORK SIGNED. RT CALLED TO DISPENSE CONCENTRATOR AND TANK. PRIMARY NURSE, GREY GUZMÁN, AWARE.
--- NOTE | 2020-08-17 17:30 | NUR ---
DISCHARGE VERBAL & WRITTEN DISCHARGE INSTRUCTIONS REVIEWED & GIVEN TO PT & SPOUSE. QUESTIONS ENCOURAGED & CLARIFIED. PROPER CARE & MGT OF PULMONARY EDEMA/SOB REVIEWED & REINFORCED. CONTINUED & STOPPED HOME MEDICATIONS REVIEWED. REINFORCED PT & SPOUSE METOPROLOL & ENTRESTO NOT TO BE TAKEN UNTIL RESUMED BY PT'S MD. PER DR BERRIOS, PT MAY GO TO OFFICE IF SOB EXPERIENCED TO HAVE EMERGENCY HD SCHEDULED. PT & SPOUSE STATE UNDERSTANDING. HOME O2 SETUP REVIEWED & REINFORCED. REMINDED PT & SPOUSE PORTABLE O2 TANK TO RETURNED TMRW @ ER ENTRANCE. HOME O2 TO BE SETUP ON WEDNESDAY. TELE CHRISTINE REMOVED EARLIER. IV DC'D @ THIS TIME. PT & SPOUSE TO GATHER PERSONAL BELONGINGS. WILL NOTIFY STAFF WHEN READY TO BE TAKEN TO PRIVATE VEHICLE.
--- NOTE | 2020-08-17 17:45 | NUR ---
DISCHARGE PT TAKEN TO PRIVATE VEHICLE VIA WC BY HAMILTON GALLARDO & JAMAL PCPs, ACCOMPANIED BY .
== END 2020-08-17 17:45 | disposition home or self-care (01) | DRG 291 ==
LOC: EDH 23:56 → EDHIP 08-06 01:49 → 4BH 08-06 03:42
PROVIDERS: ADMIT Internal Medicine Nephrology; ATTEND Internal Medicine Nephrology
PROC: 5A1D70Z Performance of Urinary Filtration, Intermittent, Less than 6 Hours Per Day (ICD-10-PCS; principal; 2020-08-06)
PROC: 5A09357 Assistance with Respiratory Ventilation, Less than 24 Consecutive Hours, Continuous Positive Airway Pressure (ICD-10-PCS; 2020-08-06)
PROC: 5A09357 Assistance with Respiratory Ventilation, Less than 24 Consecutive Hours, Continuous Positive Airway Pressure (ICD-10-PCS; 2020-08-07)
PROC: 5A1D70Z Performance of Urinary Filtration, Intermittent, Less than 6 Hours Per Day (ICD-10-PCS; 2020-08-08)
PROC: 5A09357 Assistance with Respiratory Ventilation, Less than 24 Consecutive Hours, Continuous Positive Airway Pressure (ICD-10-PCS; 2020-08-08)
PROC: 5A09357 Assistance with Respiratory Ventilation, Less than 24 Consecutive Hours, Continuous Positive Airway Pressure (ICD-10-PCS; 2020-08-09)
PROC: 5A1D70Z Performance of Urinary Filtration, Intermittent, Less than 6 Hours Per Day (ICD-10-PCS; 2020-08-10)
PROC: 5A09357 Assistance with Respiratory Ventilation, Less than 24 Consecutive Hours, Continuous Positive Airway Pressure (ICD-10-PCS; 2020-08-10)
PROC: 5A09357 Assistance with Respiratory Ventilation, Less than 24 Consecutive Hours, Continuous Positive Airway Pressure (ICD-10-PCS; 2020-08-11)
PROC: 5A1D70Z Performance of Urinary Filtration, Intermittent, Less than 6 Hours Per Day (ICD-10-PCS; 2020-08-12)
PROC: 5A09357 Assistance with Respiratory Ventilation, Less than 24 Consecutive Hours, Continuous Positive Airway Pressure (ICD-10-PCS; 2020-08-12)
PROC: 5A1D70Z Performance of Urinary Filtration, Intermittent, Less than 6 Hours Per Day (ICD-10-PCS; 2020-08-13)
PROC: 5A09357 Assistance with Respiratory Ventilation, Less than 24 Consecutive Hours, Continuous Positive Airway Pressure (ICD-10-PCS; 2020-08-14)
PROC: 5A1D70Z Performance of Urinary Filtration, Intermittent, Less than 6 Hours Per Day (ICD-10-PCS; 2020-08-15)
PROC: 5A09357 Assistance with Respiratory Ventilation, Less than 24 Consecutive Hours, Continuous Positive Airway Pressure (ICD-10-PCS; 2020-08-15)
PROC: 5A1D70Z Performance of Urinary Filtration, Intermittent, Less than 6 Hours Per Day (ICD-10-PCS; 2020-08-17)
PROC: 5A09357 Assistance with Respiratory Ventilation, Less than 24 Consecutive Hours, Continuous Positive Airway Pressure (ICD-10-PCS; 2020-08-17)
DX: I13.2 Hypertensive heart and chronic kidney disease with heart failure and with stage 5 chronic kidney disease, or end stage renal disease (principal); J18.9 Pneumonia, unspecified organism; J96.01 Acute respiratory failure with hypoxia; N18.6 End stage renal disease; I50.23 Acute on chronic systolic (congestive) heart failure; E87.1 Hypo-osmolality and hyponatremia; I42.9 Cardiomyopathy, unspecified; E87.5 Hyperkalemia; I95.9 Hypotension, unspecified; Z20.828 Contact with and (suspected) exposure to other viral communicable diseases; D64.9 Anemia, unspecified; E11.22 Type 2 diabetes mellitus with diabetic chronic kidney disease; E78.5 Hyperlipidemia, unspecified; I25.10 Atherosclerotic heart disease of native coronary artery without angina pectoris; R62.7 Adult failure to thrive; Z91.19 Patient's noncompliance with other medical treatment and regimen; Z99.2 Dependence on renal dialysis; Z68.22 Body mass index [BMI] 22.0-22.9, adult; Z83.3 Family history of diabetes mellitus
CPT/HCPCS: 36415; 36600; 71045; 80048; 80053; 80074; 80202; 82550; 82803; 82948; 83605; 83735; 83874; 83880; 84100; 84484; 85025; 85027; 85610; 85730; 87040; 87426; 90935; 93005; 94640; 94660; 94664; 94760; 97039; 99291; C9113; G0378; J0456; J0885; J1815; J2543; J3370; J3490; J7050; P9047; U0003

== ENCOUNTER 2020-10-22 20:21 | Inpatient (IN) | payer MEDICARE ==
[~2020-10-22] VITALS: Ht 162.6 cm; Wt 55.8 kg
[~2020-10-22 20:21] MED LIST changes: -AMLO-258 PO; +BENZ-70 PO; +CALC667C10 PO; -INSU100I13 SQ; -LOSA50TA2 PO; -METO-391 PO; -SEVE800 PO
[2020-10-22 21:49] LABS: BASOPHILS % (AUTO) 0.1 % (0.0-5.0); LYMPHOCYTES % (AUTO) 2.2 % (21.0-51.0); MEAN CORPUSCULAR HGB CONC 32.4 g/dL (32.0-36.0); MEAN CORPUSCULAR VOLUME 102.1 fL (79-99); MONOCYTES % (AUTO) 5.5 % (3.0-13.0); NEUTROPHILS % (AUTO) 91.9 % (40.0-77.0); NUCLEATED RED BLOOD CELLS 1.3 % (0.0-0.19); PLATELET COUNT (AUTO) 90 K/uL (130-400); RED BLOOD CELL COUNT(AUTO) 3.33 MIL/uL (4.50-6.20); RED CELL DISTRIBUTION WIDTH 16.9 % (11.0-15.5); WHITE BLOOD COUNT (AUTO) 10.6 K/uL (4.8-10.8)
[2020-10-22 22:00] LABS: CREATININE 3.9 mg/dL (0.5-1.5); POTASSIUM 4.5 mmol/L (3.5-5.1)
[2020-10-22 22:10] LABS: ALBUMIN 3.9 g/dL (3.5-5.0); BILIRUBIN,TOTAL 2.9 mg/dL (0.2-1.0)
[2020-10-22 22:28] LABS: BAND NEUTROPHILS % (MANUAL) 6 % (0-2); LYMPHOCYTES % (MANUAL) 12 % (22-44); MAN.DIFF COMMENT-IMPRESSION MANUAL DIFFERENTIAL; MONOCYTES % (MANUAL) 2 % (2-9); PLATELET MORPHOLOGY COMMENT SLIGHTLY DECREASED; SEGMENTED NEUTROPHILS % 80 % (40-70)
[2020-10-23 02:44] LABS: ALCOHOL, BLOOD < 3 mg/dL (0-10)
[2020-10-23 02:45] LABS: ACETAMINOPHEN < 1 mcg/mL (10-29)
[2020-10-23] MEDS ORDERED: DiphenhydrAMINE HCL 50 MG/ML VIAL IV PRN (03:30)
[2020-10-23] MEDS ORDERED: MAG/ALUM/SIMETH 30 ML UDCUP PO PRN (03:30)
[2020-10-23] MEDS ORDERED: NITROGLYCERIN 0.4 MG SL TAB SL PRN (03:30)
[2020-10-23] MEDS ORDERED: GUAIFENESIN-DM 200/20 MG 10 ML PO PRN (03:30)
[2020-10-23] MEDS ORDERED: DIPHENHYDRAMINE HCL 25 MG CAPSULE PO PRN (03:30)
[2020-10-23] MEDS ORDERED: LACTULOSE 20 GM/30 ML UDCUP PO PRN (03:30)
[2020-10-23] MEDS ORDERED: ONDANSETRON 4MG INJ IV PRN (03:30)
[2020-10-23 05:08] LABS: BASOPHILS % (AUTO) 0.1 % (0.0-5.0); HEMATOCRIT 35.9 % (42-54); LYMPHOCYTES % (AUTO) 2.1 % (21.0-51.0); MEAN CORPUSCULAR HEMOGLOBIN 33.1 pg (27.0-33.0); MEAN CORPUSCULAR HGB CONC 32.3 g/dL (32.0-36.0); MEAN CORPUSCULAR VOLUME 102.6 fL (79-99); MONOCYTES % (AUTO) 4.9 % (3.0-13.0); NEUTROPHILS % (AUTO) 92.5 % (40.0-77.0); NUCLEATED RED BLOOD CELLS 1.5 % (0.0-0.19); PLATELET COUNT (AUTO) 98 K/uL (130-400); RED CELL DISTRIBUTION WIDTH 17.2 % (11.0-15.5)
[2020-10-23 05:16] LABS: CREATININE 4.5 mg/dL (0.5-1.5); POTASSIUM 5.3 mmol/L (3.5-5.1)
[2020-10-23 05:30] LABS: ALBUMIN 3.5 g/dL (3.5-5.0); BILIRUBIN,DIRECT 1.6 mg/dL (0.0-0.3); BILIRUBIN,TOTAL 2.7 mg/dL (0.2-1.0); INR 2.06 (0.85-1.15); MAGNESIUM 2.4 mg/dL (1.80-2.40); PHOSPHORUS 5.9 mg/dL (2.5-4.9); PROTHROMBIN TIME 20.6 SEC (9.6-11.6); TOTAL PROTEIN, SERUM 7.2 g/dL (6.0-8.3)
[2020-10-23 05:32] LABS: PARTIAL THROMBOPLASTIN TIME 31.5 SEC (26.3-35.5)
[2020-10-23 12:31] VITALS: BP 143/70
[2020-10-23] MEDS ORDERED: DEXTROSE 50%-WATER 50 ML DISP.SYRIN IV PRN ×2 (19:00→23:15)
[2020-10-23] MEDS ORDERED: GLUCAGON 1MG KIT 1 MG ML IM PRN ×2 (19:00→23:15)
[2020-10-23 19:16] VITALS: BP 135/69
[2020-10-23 20:00] VITALS: BP 164/70
[2020-10-23] MEDS ORDERED: INSULIN HUMULIN R 100 UNIT/ML 3ML ONE (23:23)
[2020-10-23 23:58] VITALS: BP 141/74
[2020-10-24 03:57] LABS: BASOPHILS % (AUTO) 0.1 % (0.0-5.0); EOSINOPHILS % (AUTO) 1.2 % (0.0-8.0); HEMATOCRIT 34.6 % (42-54); LYMPHOCYTES % (AUTO) 8.2 % (21.0-51.0); MEAN CORPUSCULAR HEMOGLOBIN 32.5 pg (27.0-33.0); MEAN CORPUSCULAR HGB CONC 32.1 g/dL (32.0-36.0); MEAN CORPUSCULAR VOLUME 101.2 fL (79-99); MONOCYTES % (AUTO) 6.4 % (3.0-13.0); NEUTROPHILS % (AUTO) 83.4 % (40.0-77.0); PLATELET COUNT (AUTO) 106 K/uL (130-400); RED BLOOD CELL COUNT(AUTO) 3.42 MIL/uL (4.50-6.20); RED CELL DISTRIBUTION WIDTH 16.6 % (11.0-15.5); WHITE BLOOD COUNT (AUTO) 9.7 K/uL (4.8-10.8)
[2020-10-24 04:00] VITALS: BP 138/68
[2020-10-24 04:30] LABS: ALBUMIN 3.2 g/dL (3.5-5.0); BILIRUBIN,DIRECT 1.4 mg/dL (0.0-0.3); BILIRUBIN,TOTAL 2.1 mg/dL (0.2-1.0); CREATININE 6.1 mg/dL (0.5-1.5); POTASSIUM 4.8 mmol/L (3.5-5.1); TOTAL PROTEIN, SERUM 6.6 g/dL (6.0-8.3)
[2020-10-24] MEDS: INSULIN HUMULIN R 100 UNIT/ML 3ML SQ SCH ×4 (07:30→21:13)
[2020-10-24 08:00] VITALS: BP 141/74
[2020-10-24] MEDS: Vitamin B Complex/Vit C/Folic Acid PO SCH (10:10)
[2020-10-24 11:00] VITALS: BP 151/76
[2020-10-24] MEDS ORDERED: CHOL200079 PO (11:08)
[2020-10-24] MEDS ORDERED: BENZ-70 PO (11:08)
[2020-10-24] MEDS ORDERED: CETI5TAB12 PO (11:08)
[2020-10-24] MEDS ORDERED: SACU1TAB7 PO (11:08)
[2020-10-24] MEDS ORDERED: LINA5TAB PO (11:08)
[2020-10-24] MEDS ORDERED: METO-391 PO (11:08)
[2020-10-24 11:13] LABS: HEPATITIS A ANTIBODY IGM Negative (Negative); HEPATITIS B CORE IGM Negative (Negative); HEPATITIS Bs ANTIGEN SCREEN P Negative (Negative)
[2020-10-24] MEDS ORDERED: HEPARIN 5,000 UNIT VIAL ONE (11:22)
[2020-10-24 16:00] VITALS: BP 129/63
[2020-10-24 19:15] VITALS: BP 135/61
[2020-10-24 23:42] VITALS: BP 138/62
[2020-10-25 03:20] VITALS: BP 135/60
[2020-10-25 03:55] LABS: BASOPHILS % (AUTO) 0.3 % (0.0-5.0); EOSINOPHILS % (AUTO) 9.6 % (0.0-8.0); HEMATOCRIT 32.2 % (42-54); LYMPHOCYTES % (AUTO) 12.5 % (21.0-51.0); MEAN CORPUSCULAR HEMOGLOBIN 33.2 pg (27.0-33.0); MEAN CORPUSCULAR HGB CONC 32.6 g/dL (32.0-36.0); MEAN CORPUSCULAR VOLUME 101.9 fL (79-99); NEUTROPHILS % (AUTO) 69.1 % (40.0-77.0); PLATELET COUNT (AUTO) 74 K/uL (130-400); RED BLOOD CELL COUNT(AUTO) 3.16 MIL/uL (4.50-6.20); RED CELL DISTRIBUTION WIDTH 16.5 % (11.0-15.5); WHITE BLOOD COUNT (AUTO) 6.2 K/uL (4.8-10.8)
[2020-10-25 04:25] LABS: ALBUMIN 3.2 g/dL (3.5-5.0); BILIRUBIN,TOTAL 2.9 mg/dL (0.2-1.0); CREATININE 4.6 mg/dL (0.5-1.5); POTASSIUM 3.9 mmol/L (3.5-5.1); TOTAL PROTEIN, SERUM 6.8 g/dL (6.0-8.3)
[2020-10-25] MEDS: INSULIN HUMULIN R 100 UNIT/ML 3ML SQ SCH ×2 (06:50→11:22)
[2020-10-25 08:33] VITALS: BP 148/77
[2020-10-25] MEDS: Vitamin B Complex/Vit C/Folic Acid PO SCH (09:46)
[2020-10-25 11:33] VITALS: BP 140/69
[2020-10-25 15:58] VITALS: BP 128/68
== END 2020-10-25 18:48 | disposition home or self-care (01) | DRG 441 ==
LOC: EDH 20:21 → EDHIP 10-23 03:16 → 3BH 10-23 07:49
PROVIDERS: ADMIT Family Medicine; ATTEND Family Medicine
PROC: 5A1D70Z Performance of Urinary Filtration, Intermittent, Less than 6 Hours Per Day (ICD-10-PCS; principal; 2020-10-24)
DX: K72.00 Acute and subacute hepatic failure without coma (principal); N18.6 End stage renal disease; I13.2 Hypertensive heart and chronic kidney disease with heart failure and with stage 5 chronic kidney disease, or end stage renal disease; I42.9 Cardiomyopathy, unspecified; E11.22 Type 2 diabetes mellitus with diabetic chronic kidney disease; K74.60 Unspecified cirrhosis of liver; D50.9 Iron deficiency anemia, unspecified; D69.6 Thrombocytopenia, unspecified; E78.00 Pure hypercholesterolemia, unspecified; E78.5 Hyperlipidemia, unspecified; I25.10 Atherosclerotic heart disease of native coronary artery without angina pectoris; I50.9 Heart failure, unspecified; I95.9 Hypotension, unspecified; K82.4 Cholesterolosis of gallbladder; N28.1 Cyst of kidney, acquired; Z99.2 Dependence on renal dialysis; Z82.0 Family history of epilepsy and other diseases of the nervous system; Z82.3 Family history of stroke; Z82.49 Family history of ischemic heart disease and other diseases of the circulatory system; Z82.5 Family history of asthma and other chronic lower respiratory diseases; Z83.3 Family history of diabetes mellitus; Z79.899 Other long term (current) drug therapy; Z79.84 Long term (current) use of oral hypoglycemic drugs
CPT/HCPCS: 36415; 70450; 74176; 74181; 76705; 78227; 80048; 80053; 80074; 80076; 82140; 82550; 82728; 82948; 82977; 83036; 83615; 83690; 83735; 84100; 84145; 84484; 85025; 85610; 85730; 86140; 87338; 90935; 93005; 94664; A9537; C9113; G0378; J1644; J1815; J2405; J2543; J2805

== ENCOUNTER 2020-10-28 02:56 | Inpatient (IN) | payer MEDICARE ==
[~2020-10-28] VITALS: Ht 152.4 cm; Wt 58.1 kg
[~2020-10-28 02:56] MED LIST changes: +CETI5TAB12 PO; +CHOL200079 PO; +METO-391 PO; +SACU1TAB7 PO
[2020-10-28 03:22] LABS: BASOPHILS % (AUTO) 0.5 % (0.0-5.0); EOSINOPHILS % (AUTO) 6.7 % (0.0-8.0); HEMATOCRIT 32.5 % (42-54); LYMPHOCYTES % (AUTO) 14.9 % (21.0-51.0); MEAN CORPUSCULAR HEMOGLOBIN 33.1 pg (27.0-33.0); MEAN CORPUSCULAR HGB CONC 31.4 g/dL (32.0-36.0); MEAN CORPUSCULAR VOLUME 105.5 fL (79-99); MONOCYTES % (AUTO) 12.4 % (3.0-13.0); PLATELET COUNT (AUTO) 53 K/uL (130-400); RED BLOOD CELL COUNT(AUTO) 3.08 MIL/uL (4.50-6.20); RED CELL DISTRIBUTION WIDTH 17.7 % (11.0-15.5); WHITE BLOOD COUNT (AUTO) 7.7 K/uL (4.8-10.8)
[2020-10-28 03:35] LABS: CREATININE 5.8 mg/dL (0.5-1.5)
[2020-10-28 03:44] LABS: ALBUMIN 3.7 g/dL (3.5-5.0); BILIRUBIN,DIRECT 1.3 mg/dL (0.0-0.3); BILIRUBIN,TOTAL 2.4 mg/dL (0.2-1.0); TOTAL PROTEIN, SERUM 7.7 g/dL (6.0-8.3)
[2020-10-28] MEDS ORDERED: MAG/ALUM/SIMETH 30 ML UDCUP ONE (04:03)
[2020-10-28] MEDS ORDERED: ONDANSETRON 4MG INJ ONE (04:03)
[2020-10-28] MEDS ORDERED: LIDOCAINE HCL 2% VISCOUS 15 ML UDCUP ONE (04:03)
[2020-10-28] MEDS ORDERED: GUAIFENESIN-DM 200/20 MG 10 ML PO PRN (05:00)
[2020-10-28] MEDS ORDERED: ALBUTEROL 0.083% 2.5 MG/3 ML INH IH PRN (05:00)
[2020-10-28] MEDS ORDERED: RENAL DOSE IV SCH (05:00)
[2020-10-28] MEDS ORDERED: ONDANSETRON 4MG INJ IV PRN (05:00)
[2020-10-28] MEDS ORDERED: MAG/ALUM/SIMETH 30 ML UDCUP PO PRN (05:00)
[2020-10-28] MEDS ORDERED: DiphenhydrAMINE HCL 50 MG/ML VIAL IV PRN (05:00)
[2020-10-28] MEDS ORDERED: DIPHENHYDRAMINE HCL 25 MG CAPSULE PO PRN (05:00)
[2020-10-28] MEDS ORDERED: LACTULOSE 20 GM/30 ML UDCUP PO PRN (05:00)
[2020-10-28] MEDS ORDERED: NITROGLYCERIN 0.4 MG SL TAB SL PRN (05:00)
[2020-10-28] MEDS ORDERED: ACETAMINOPHEN 325 MG TAB PO PRN ×2 (05:00)
[2020-10-28] MEDS ORDERED: ZOSYN 3.375GM+NS 50ML 50 ML IV SCH (05:00)
[2020-10-28] MEDS ORDERED: ZOSYN 3.375GM+NS 50ML 50 ML IV ONE (06:12)
[2020-10-28] MEDS ORDERED: HEPARIN 5,000 UNIT VIAL ONE ×2 (09:00→20:41)
[2020-10-28] MEDS ORDERED: PANTOPRAZOLE 40 MG TAB DR ONE (09:01)
[2020-10-28] MEDS ORDERED: PANTOPRAZOLE 40 MG/VIAL ONE (20:41)
[2020-10-29 05:03] LABS: BASOPHILS % (AUTO) 0.5 % (0.0-5.0); EOSINOPHILS % (AUTO) 5.7 % (0.0-8.0); HEMATOCRIT 34.2 % (42-54); LYMPHOCYTES % (AUTO) 22.9 % (21.0-51.0); MEAN CORPUSCULAR HEMOGLOBIN 32.8 pg (27.0-33.0); MEAN CORPUSCULAR VOLUME 105.9 fL (79-99); MONOCYTES % (AUTO) 9.6 % (3.0-13.0); NEUTROPHILS % (AUTO) 60.7 % (40.0-77.0); PLATELET COUNT (AUTO) 56 K/uL (130-400); RED BLOOD CELL COUNT(AUTO) 3.23 MIL/uL (4.50-6.20); RED CELL DISTRIBUTION WIDTH 18.6 % (11.0-15.5); WHITE BLOOD COUNT (AUTO) 7.9 K/uL (4.8-10.8)
[2020-10-29 05:25] LABS: ALBUMIN 3.5 g/dL (3.5-5.0); BILIRUBIN,TOTAL 1.7 mg/dL (0.2-1.0); CREATININE 7.1 mg/dL (0.5-1.5); CRP QUANTITATIVE 39.2 mg/L (0.00-9.0); TOTAL PROTEIN, SERUM 7.3 g/dL (6.0-8.3)
[2020-10-29] MEDS ORDERED: PANTOPRAZOLE 40 MG TAB DR ONE ×2 (09:37→19:30)
[2020-10-29] MEDS ORDERED: HEPARIN 5,000 UNIT VIAL ONE ×2 (09:37→19:30)
[2020-10-29] MEDS ORDERED: ZOSYN 3.375GM+NS 50ML 50 ML IV ONE (09:39)
[2020-10-29] MEDS: ZOSYN 3.375GM+NS 50ML 50 ML IV SCH (18:00)
[2020-10-29] MEDS: PANTOPRAZOLE 40 MG TAB DR PO SCH (21:00)
[2020-10-29] MEDS: HEPARIN 5,000 UNIT VIAL SQ SCH (21:00)
[2020-10-29 21:20] VITALS: BP 163/63
[2020-10-29 23:56] VITALS: BP 153/70
[2020-10-30 03:55] VITALS: BP 133/61
[2020-10-30] MEDS: ZOSYN 3.375GM+NS 50ML 50 ML IV SCH ×2 (05:53→18:15)
[2020-10-30 05:59] LABS: BASOPHILS % (AUTO) 0.9 % (0.0-5.0); EOSINOPHILS % (AUTO) 6.9 % (0.0-8.0); HEMATOCRIT 27.6 % (42-54); LYMPHOCYTES % (AUTO) 14.3 % (21.0-51.0); MEAN CORPUSCULAR HEMOGLOBIN 37.4 pg (27.0-33.0); MEAN CORPUSCULAR HGB CONC 34.8 g/dL (32.0-36.0); MEAN CORPUSCULAR VOLUME 107.4 fL (79-99); MONOCYTES % (AUTO) 11.1 % (3.0-13.0); NEUTROPHILS % (AUTO) 66.3 % (40.0-77.0); PLATELET COUNT (AUTO) 58 K/uL (130-400); RED BLOOD CELL COUNT(AUTO) 2.57 MIL/uL (4.50-6.20); RED CELL DISTRIBUTION WIDTH 19.5 % (11.0-15.5); WHITE BLOOD COUNT (AUTO) 5.7 K/uL (4.8-10.8)
[2020-10-30 06:40] LABS: ALBUMIN 3.1 g/dL (3.5-5.0); BILIRUBIN,TOTAL 1.7 mg/dL (0.2-1.0); CREATININE 5.1 mg/dL (0.5-1.5); CRP QUANTITATIVE 52.2 mg/L (0.00-9.0); POTASSIUM 4.4 mmol/L (3.5-5.1); TOTAL PROTEIN, SERUM 6.8 g/dL (6.0-8.3)
[2020-10-30 07:18] LABS: PLATELET MORPHOLOGY COMMENT MARKED DECREASE
[2020-10-30 08:07] VITALS: BP 143/70
[2020-10-30 11:00] VITALS: BP 114/68
[2020-10-30] MEDS: HEPARIN 5,000 UNIT VIAL SQ SCH ×2 (11:05→21:07)
[2020-10-30] MEDS: PANTOPRAZOLE 40 MG TAB DR PO SCH ×2 (11:05→21:04)
[2020-10-30] MEDS ORDERED: SINCALIDE 5 MCG ML VIAL IV ONE (15:20)
[2020-10-30 16:30] VITALS: BP 136/70
[2020-10-30 20:00] VITALS: BP 128/72
[2020-10-30 23:23] VITALS: BP 127/73
[2020-10-31 03:39] VITALS: BP_SYST 132; BP_SYST 146; BP_DIAS 64; BP_DIAS 76
[2020-10-31] MEDS: ZOSYN 3.375GM+NS 50ML 50 ML IV SCH (05:02)
[2020-10-31 06:05] LABS: BASOPHILS % (AUTO) 1.1 % (0.0-5.0); EOSINOPHILS % (AUTO) 8.9 % (0.0-8.0); HEMATOCRIT 32.1 % (42-54); LYMPHOCYTES % (AUTO) 16.3 % (21.0-51.0); MEAN CORPUSCULAR HEMOGLOBIN 32.3 pg (27.0-33.0); MEAN CORPUSCULAR HGB CONC 30.2 g/dL (32.0-36.0); MONOCYTES % (AUTO) 12.1 % (3.0-13.0); PLATELET COUNT (AUTO) 70 K/uL (130-400); RED CELL DISTRIBUTION WIDTH 18.9 % (11.0-15.5); WHITE BLOOD COUNT (AUTO) 4.7 K/uL (4.8-10.8)
[2020-10-31 06:21] LABS: BILIRUBIN,TOTAL 1.6 mg/dL (0.2-1.0); CREATININE 6.8 mg/dL (0.5-1.5); CRP QUANTITATIVE 45.9 mg/L (0.00-9.0); PHOSPHORUS 4.8 mg/dL (2.5-4.9); POTASSIUM 4.5 mmol/L (3.5-5.1); TOTAL PROTEIN, SERUM 6.8 g/dL (6.0-8.3)
[2020-10-31 08:04] VITALS: BP 132/70
[2020-10-31] MEDS: HEPARIN 5,000 UNIT VIAL SQ SCH (09:00)
[2020-10-31] MEDS: PANTOPRAZOLE 40 MG TAB DR PO SCH (09:14)
[2020-10-31 11:49] VITALS: BP_SYST 112; BP_SYST 120; BP_DIAS 64; BP_DIAS 69
[2020-10-31] MEDS ORDERED: BENZONATATE 100 MG CAPSULE PO SCH (14:00)
[2020-10-31 16:10] VITALS: BP 134/72
== END 2020-10-31 18:59 | disposition home or self-care (01) | DRG 391 ==
LOC: EDH 02:56 → EDHIP 05:00 → 3AH 10-29 20:14
PROVIDERS: ADMIT Family Medicine; ATTEND Family Medicine
PROC: 5A1D70Z Performance of Urinary Filtration, Intermittent, Less than 6 Hours Per Day (ICD-10-PCS; principal; 2020-10-29)
PROC: 5A1D70Z Performance of Urinary Filtration, Intermittent, Less than 6 Hours Per Day (ICD-10-PCS; 2020-10-31)
DX: K57.92 Diverticulitis of intestine, part unspecified, without perforation or abscess without bleeding (principal); K72.00 Acute and subacute hepatic failure without coma; N18.6 End stage renal disease; B17.9 Acute viral hepatitis, unspecified; I13.2 Hypertensive heart and chronic kidney disease with heart failure and with stage 5 chronic kidney disease, or end stage renal disease; I50.22 Chronic systolic (congestive) heart failure; E11.22 Type 2 diabetes mellitus with diabetic chronic kidney disease; I25.5 Ischemic cardiomyopathy; D64.9 Anemia, unspecified; E11.51 Type 2 diabetes mellitus with diabetic peripheral angiopathy without gangrene; I25.10 Atherosclerotic heart disease of native coronary artery without angina pectoris; E78.5 Hyperlipidemia, unspecified; K80.20 Calculus of gallbladder without cholecystitis without obstruction; E78.00 Pure hypercholesterolemia, unspecified; E11.21 Type 2 diabetes mellitus with diabetic nephropathy; D69.6 Thrombocytopenia, unspecified; Z91.19 Patient's noncompliance with other medical treatment and regimen; Z87.891 Personal history of nicotine dependence; Z86.73 Personal history of transient ischemic attack (TIA), and cerebral infarction without residual deficits; Z99.2 Dependence on renal dialysis; Z83.3 Family history of diabetes mellitus; Z82.49 Family history of ischemic heart disease and other diseases of the circulatory system; Z82.0 Family history of epilepsy and other diseases of the nervous system; Z82.3 Family history of stroke; Z82.5 Family history of asthma and other chronic lower respiratory diseases; Z79.899 Other long term (current) drug therapy
CPT/HCPCS: 36415; 74176; 74181; 76705; 78227; 80048; 80053; 80076; 82948; 83690; 84100; 84145; 84484; 85025; 86140; 87338; 90935; 93005; 94664; A9537; C9113; G0378; J1644; J2405; J2543; J2805

== ENCOUNTER 2020-11-25 23:21 | Inpatient (IN) | payer MEDICARE ==
[~2020-11-25] VITALS: Ht 154.9 cm; Wt 61.2 kg
[2020-11-26 01:22] LABS: BASOPHILS % (AUTO) 1.2 % (0.0-5.0); EOSINOPHILS % (AUTO) 9.4 % (0.0-8.0); HEMATOCRIT 39.5 % (42-54); LYMPHOCYTES % (AUTO) 30.6 % (21.0-51.0); MEAN CORPUSCULAR HEMOGLOBIN 32.8 pg (27.0-33.0); MEAN CORPUSCULAR HGB CONC 32.2 g/dL (32.0-36.0); MEAN CORPUSCULAR VOLUME 102.1 fL (79-99); MONOCYTES % (AUTO) 12.3 % (3.0-13.0); NEUTROPHILS % (AUTO) 46.3 % (40.0-77.0); PLATELET COUNT (AUTO) 107 K/uL (130-400); RED BLOOD CELL COUNT(AUTO) 3.87 MIL/uL (4.50-6.20); RED CELL DISTRIBUTION WIDTH 15.9 % (11.0-15.5); WHITE BLOOD COUNT (AUTO) 6.6 K/uL (4.8-10.8)
[2020-11-26 01:29] LABS: ALBUMIN 3.5 g/dL (3.5-5.0); BILIRUBIN,TOTAL 0.7 mg/dL (0.2-1.0); INR 1.06 (0.85-1.15); PROTHROMBIN TIME 11.5 SEC (9.6-11.6); TOTAL PROTEIN, SERUM 7.9 g/dL (6.0-8.3)
[2020-11-26 01:30] LABS: PARTIAL THROMBOPLASTIN TIME 28.3 SEC (26.3-35.5)
[2020-11-26 01:34] LABS: POTASSIUM 7.4 mmol/L (3.5-5.1)
[2020-11-26] MEDS ORDERED: CALCIUM GLUC 1GM/10ML VIAL IV ONE (01:45)
[2020-11-26] MEDS ORDERED: KAYEXALATE 15GM/60ML ONE (01:45)
[2020-11-26] MEDS ORDERED: INSULIN HUMULIN R 100 UNIT/ML 3ML ONE (01:46)
[2020-11-26] MEDS ORDERED: DEXTROSE 50%-WATER 50 ML DISP.SYRIN IV ONE (01:46)
[2020-11-26] MEDS ORDERED: SODIUM BICARB 50MEQ 50ML VIAL 50 ML ONE ×2 (01:46→15:28)
[2020-11-26] MEDS ORDERED: 0.9%NACL 50ML 50 ML IV ONE (01:47)
[2020-11-26] MEDS ORDERED: FUROSEMIDE 40MG VIAL ONE (02:24)
[2020-11-26] MEDS ORDERED: ONDANSETRON 4MG INJ ONE (03:33)
[2020-11-26] MEDS ORDERED: MAG/ALUM/SIMETH 30 ML UDCUP PO PRN (04:00)
[2020-11-26] MEDS ORDERED: NITROGLYCERIN 0.4 MG SL TAB SL PRN (04:00)
[2020-11-26] MEDS ORDERED: LACTULOSE 20 GM/30 ML UDCUP PO PRN (04:00)
[2020-11-26] MEDS ORDERED: GUAIFENESIN-DM 200/20 MG 10 ML PO PRN (04:00)
[2020-11-26] MEDS ORDERED: ONDANSETRON 4MG INJ IV PRN (04:00)
[2020-11-26] MEDS ORDERED: DiphenhydrAMINE HCL 50 MG/ML VIAL IV PRN (04:00)
[2020-11-26] MEDS ORDERED: ACETAMINOPHEN 325 MG TAB PO PRN ×3 (04:00→19:15)
[2020-11-26] MEDS ORDERED: DIPHENHYDRAMINE HCL 25 MG CAPSULE PO PRN (04:00)
[2020-11-26 04:58] LABS: CREATININE 6.5 mg/dL (0.5-1.5); CRP QUANTITATIVE 8.8 mg/L (0.00-9.0)
[2020-11-26 05:13] LABS: POTASSIUM 6.6 mmol/L (3.5-5.1)
[2020-11-26] MEDS ORDERED: ALBUTEROL 0.083% 2.5 MG/3 ML INH IH ONE (05:30)
[2020-11-26 05:45] VITALS: BP 134/87
[2020-11-26 09:22] VITALS: BP 138/79
[2020-11-26 12:00] VITALS: BP 138/83
[2020-11-26] MEDS ORDERED: HEPARIN 1,000 UNIT VIAL ONE (15:28)
[2020-11-26] MEDS ORDERED: LIDOCAINE HCL 400MG/20ML VIAL ONE (15:29)
[2020-11-26] MEDS ORDERED: KAYEXALATE 15GM/60ML RC SCH (15:57)
[2020-11-26 17:36] VITALS: BP 132/83
[2020-11-26 19:00] VITALS: BP 118/58
[2020-11-26] MEDS ORDERED: HEPARIN 5,000 UNIT VIAL ONE (19:03)
[2020-11-26] MEDS ORDERED: 0.9%NACL 1000ML IV PRN (19:15)
[2020-11-26] MEDS ORDERED: HEPARIN 5,000 UNIT VIAL IJ PRN (19:15)
[2020-11-26] MEDS ORDERED: 0.9%NACL 1000ML 1,000 ML IV PRN (19:15)
[2020-11-26] MEDS: CETIRIZINE HCL 5 MG TABLET PO SCH (20:24)
[2020-11-26] MEDS: ATORVASTATIN 20 MG TABLET PO SCH (20:24)
[2020-11-26] MEDS: ENTRESTO PO SCH (20:26)
[2020-11-27] VITALS (8 sets, daily range): BP systolic 114–135; BP diastolic 63–79
[2020-11-27 05:58] LABS: ALBUMIN 2.9 g/dL (3.5-5.0); BASOPHILS % (AUTO) 1.2 % (0.0-5.0); BILIRUBIN,TOTAL 0.7 mg/dL (0.2-1.0); CREATININE 5.2 mg/dL (0.5-1.5); EOSINOPHILS % (AUTO) 11.7 % (0.0-8.0); LYMPHOCYTES % (AUTO) 25.1 % (21.0-51.0); MAGNESIUM 3.3 mg/dL (1.80-2.40); MEAN CORPUSCULAR HEMOGLOBIN 32.2 pg (27.0-33.0); MEAN CORPUSCULAR HGB CONC 32.1 g/dL (32.0-36.0); MEAN CORPUSCULAR VOLUME 100.3 fL (79-99); MONOCYTES % (AUTO) 12.5 % (3.0-13.0); NEUTROPHILS % (AUTO) 49.2 % (40.0-77.0); PHOSPHORUS 4.5 mg/dL (2.5-4.9); PLATELET COUNT (AUTO) 86 K/uL (130-400); RED BLOOD CELL COUNT(AUTO) 3.39 MIL/uL (4.50-6.20); RED CELL DISTRIBUTION WIDTH 15.9 % (11.0-15.5); TOTAL PROTEIN, SERUM 6.8 g/dL (6.0-8.3); WHITE BLOOD COUNT (AUTO) 6.4 K/uL (4.8-10.8)
[2020-11-27] MEDS: **HM** VIT D3 50MCG PO SCH (09:00)
[2020-11-27] MEDS: ENTRESTO PO SCH ×2 (09:00→21:00)
[2020-11-27] MEDS: VIT D3 2000 UNIT PO SCH (09:00)
[2020-11-27] MEDS: LINAGLIPTIN 5 MG TABLET PO SCH (09:24)
[2020-11-27] MEDS: METOPROLOL SUCCINATE 50 MG TAB.SR.24H PO SCH (09:24)
[2020-11-27 15:51] LABS: HEMATOCRIT 36.4 % (42-54); MEAN CORPUSCULAR HEMOGLOBIN 32.6 pg (27.0-33.0); MEAN CORPUSCULAR HGB CONC 31.3 g/dL (32.0-36.0); RED BLOOD CELL COUNT(AUTO) 3.5 MIL/uL (4.50-6.20); RED CELL DISTRIBUTION WIDTH 15.9 % (11.0-15.5); WHITE BLOOD COUNT (AUTO) 6.6 K/uL (4.8-10.8)
[2020-11-27 16:11] LABS: CREATININE 5.7 mg/dL (0.5-1.5); PHOSPHORUS 4.6 mg/dL (2.5-4.9); POTASSIUM 5.3 mmol/L (3.5-5.1)
[2020-11-27] MEDS: CETIRIZINE HCL 5 MG TABLET PO SCH (21:55)
[2020-11-27] MEDS: ATORVASTATIN 20 MG TABLET PO SCH (21:55)
[2020-11-28 03:55] VITALS: BP 130/80
[2020-11-28 04:40] LABS: BASOPHILS % (AUTO) 0.7 % (0.0-5.0); EOSINOPHILS % (AUTO) 12.4 % (0.0-8.0); HEMATOCRIT 32.9 % (42-54); LYMPHOCYTES % (AUTO) 28.3 % (21.0-51.0); MEAN CORPUSCULAR HEMOGLOBIN 32.1 pg (27.0-33.0); MEAN CORPUSCULAR HGB CONC 32.2 g/dL (32.0-36.0); MEAN CORPUSCULAR VOLUME 99.7 fL (79-99); NEUTROPHILS % (AUTO) 45.3 % (40.0-77.0); PLATELET COUNT (AUTO) 75 K/uL (130-400); RED CELL DISTRIBUTION WIDTH 15.4 % (11.0-15.5); WHITE BLOOD COUNT (AUTO) 6.8 K/uL (4.8-10.8)
[2020-11-28 05:14] LABS: ALBUMIN 3.2 g/dL (3.5-5.0); BILIRUBIN,TOTAL 0.8 mg/dL (0.2-1.0); CREATININE 6.4 mg/dL (0.5-1.5); POTASSIUM 5.2 mmol/L (3.5-5.1); TOTAL PROTEIN, SERUM 7.1 g/dL (6.0-8.3)
[2020-11-28 08:10] VITALS: BP 124/69
[2020-11-28] MEDS: ENTRESTO PO SCH ×2 (09:00→20:50)
[2020-11-28] MEDS: LINAGLIPTIN 5 MG TABLET PO SCH (09:00)
[2020-11-28] MEDS: METOPROLOL SUCCINATE 50 MG TAB.SR.24H PO SCH (09:00)
[2020-11-28] MEDS: VIT D3 2000 UNIT PO SCH (09:00)
[2020-11-28] MEDS: **HM** VIT D3 50MCG PO SCH (09:00)
[2020-11-28] MEDS ORDERED: MIDAZOLAM HCL 1 MG/ML 2ML VIAL ONE (14:27)
[2020-11-28] MEDS ORDERED: FENTANYL CITRATE PF 50 MCG/1 ML 2ML VIAL ONE (14:27)
[2020-11-28] MEDS ORDERED: HEPARIN 1,000 UNIT VIAL ONE (14:56)
[2020-11-28] MEDS ORDERED: SODIUM BICARB 50MEQ 50ML VIAL 50 ML ONE (15:21)
[2020-11-28] MEDS ORDERED: LIDOCAINE HCL 1% MDV 50ML VIAL ONE (15:21)
[2020-11-28 16:00] VITALS: BP 119/71
[2020-11-28 20:20] VITALS: BP 130/61
[2020-11-28] MEDS: CETIRIZINE HCL 5 MG TABLET PO SCH (20:49)
[2020-11-28] MEDS: ATORVASTATIN 20 MG TABLET PO SCH (20:49)
[2020-11-29] VITALS (7 sets, daily range): BP systolic 123–151; BP diastolic 69–86
[2020-11-29 04:48] LABS: BASOPHILS % (AUTO) 0.6 % (0.0-5.0); EOSINOPHILS % (AUTO) 7.7 % (0.0-8.0); HEMATOCRIT 32.5 % (42-54); LYMPHOCYTES % (AUTO) 27.6 % (21.0-51.0); MEAN CORPUSCULAR HEMOGLOBIN 32.7 pg (27.0-33.0); MEAN CORPUSCULAR HGB CONC 32.6 g/dL (32.0-36.0); MEAN CORPUSCULAR VOLUME 100.3 fL (79-99); MONOCYTES % (AUTO) 10.4 % (3.0-13.0); NEUTROPHILS % (AUTO) 53.3 % (40.0-77.0); PLATELET COUNT (AUTO) 68 K/uL (130-400); RED BLOOD CELL COUNT(AUTO) 3.24 MIL/uL (4.50-6.20); RED CELL DISTRIBUTION WIDTH 15.2 % (11.0-15.5); WHITE BLOOD COUNT (AUTO) 8.3 K/uL (4.8-10.8)
[2020-11-29 04:52] LABS: ALBUMIN 3.4 g/dL (3.5-5.0); CREATININE 5.2 mg/dL (0.5-1.5); PHOSPHORUS 4.4 mg/dL (2.5-4.9); POTASSIUM 4.8 mmol/L (3.5-5.1); TOTAL PROTEIN, SERUM 7.5 g/dL (6.0-8.3)
[2020-11-29 05:15] LABS: PLATELET MORPHOLOGY COMMENT LARGE PLTS PRESENT
[2020-11-29] MEDS: METOPROLOL SUCCINATE 50 MG TAB.SR.24H PO SCH (08:14)
[2020-11-29] MEDS: ENTRESTO PO SCH ×2 (08:14→21:00)
[2020-11-29] MEDS: LINAGLIPTIN 5 MG TABLET PO SCH (08:14)
[2020-11-29] MEDS: VIT D3 2000 UNIT PO SCH (08:14)
[2020-11-29] MEDS: **HM** VIT D3 50MCG PO SCH (08:14)
[2020-11-29] MEDS: KAYEXALATE 15GM/60ML PO SCH ×2 (18:40→22:00)
[2020-11-29] MEDS: CETIRIZINE HCL 5 MG TABLET PO SCH (21:00)
[2020-11-29] MEDS: ATORVASTATIN 20 MG TABLET PO SCH (21:00)
[2020-11-29] MEDS ORDERED: KAYEXALATE 15GM/60ML ONE (22:29)
[2020-11-30 04:32] VITALS: BP 129/76
[2020-11-30 05:21] LABS: BASOPHILS % (AUTO) 0.6 % (0.0-5.0); EOSINOPHILS % (AUTO) 9.3 % (0.0-8.0); LYMPHOCYTES % (AUTO) 24.5 % (21.0-51.0); MEAN CORPUSCULAR HEMOGLOBIN 32.3 pg (27.0-33.0); MEAN CORPUSCULAR HGB CONC 32.9 g/dL (32.0-36.0); MEAN CORPUSCULAR VOLUME 98.1 fL (79-99); MONOCYTES % (AUTO) 13.9 % (3.0-13.0); NEUTROPHILS % (AUTO) 51.4 % (40.0-77.0); PLATELET COUNT (AUTO) 60 K/uL (130-400); RED BLOOD CELL COUNT(AUTO) 3.16 MIL/uL (4.50-6.20); RED CELL DISTRIBUTION WIDTH 14.9 % (11.0-15.5); WHITE BLOOD COUNT (AUTO) 6.2 K/uL (4.8-10.8)
[2020-11-30 05:28] LABS: CREATININE 6.5 mg/dL (0.5-1.5); MAGNESIUM 2.1 mg/dL (1.80-2.40); PHOSPHORUS 5.8 mg/dL (2.5-4.9); POTASSIUM 5.1 mmol/L (3.5-5.1)
[2020-11-30] MEDS ORDERED: FENTANYL CITRATE PF 50 MCG/1 ML 2ML VIAL ONE (07:24)
[2020-11-30] MEDS ORDERED: HEPARIN 10,000 UNIT/10ML (1,000 UNIT/ML) VIAL ONE (07:24)
[2020-11-30] MEDS ORDERED: MIDAZOLAM HCL 1 MG/ML 2ML VIAL ONE (07:24)
[2020-11-30] MEDS ORDERED: IODIXANOL 320 MG/ML 100 ML VIAL ONE (07:24)
[2020-11-30] MEDS ORDERED: LIDOCAINE HCL 1% MDV 50ML VIAL ONE (07:25)
[2020-11-30 08:00] VITALS: BP 122/71
[2020-11-30] MEDS ORDERED: HEPARIN 5,000 UNIT VIAL IJ PRN ×2 (08:00)
[2020-11-30] MEDS ORDERED: 0.9%NACL 1000ML IV PRN (08:00)
[2020-11-30] MEDS ORDERED: ACETAMINOPHEN 325 MG TAB PO PRN (08:00)
[2020-11-30] MEDS ORDERED: NITROGLYCERIN 0.4 MG SL TAB SL PRN (08:00)
[2020-11-30] MEDS ORDERED: 0.9%NACL 1000ML 1,000 ML IV PRN (08:00)
[2020-11-30] MEDS ORDERED: LIDOCAINE HCL-MPF 1% 2ML VIAL IJ PRN (08:00)
[2020-11-30] MEDS ORDERED: ALBUMIN FOR BP SUPPORT MISC PRN (08:00)
[2020-11-30] MEDS: ENTRESTO PO SCH ×2 (09:00→21:00)
[2020-11-30] MEDS: **HM** VIT D3 50MCG PO SCH (09:00)
[2020-11-30] MEDS: METOPROLOL SUCCINATE 50 MG TAB.SR.24H PO SCH (09:42)
[2020-11-30] MEDS: LINAGLIPTIN 5 MG TABLET PO SCH (09:42)
[2020-11-30] MEDS: VIT D3 2000 UNIT PO SCH (09:43)
[2020-11-30 12:04] VITALS: BP 138/67
[2020-11-30 16:00] VITALS: BP 130/68
[2020-11-30 20:00] VITALS: BP 131/73
[2020-11-30] MEDS: CETIRIZINE HCL 5 MG TABLET PO SCH (21:22)
[2020-11-30] MEDS: ATORVASTATIN 20 MG TABLET PO SCH (21:22)
[2020-12-01] VITALS: BP 125/65
[2020-12-01 04:00] VITALS: BP 131/71
[2020-12-01 05:25] LABS: BASOPHILS % (AUTO) 0.6 % (0.0-5.0); EOSINOPHILS % (AUTO) 10.9 % (0.0-8.0); HEMATOCRIT 32.6 % (42-54); LYMPHOCYTES % (AUTO) 27.6 % (21.0-51.0); MEAN CORPUSCULAR HEMOGLOBIN 32.7 pg (27.0-33.0); MEAN CORPUSCULAR HGB CONC 32.8 g/dL (32.0-36.0); MEAN CORPUSCULAR VOLUME 99.7 fL (79-99); MONOCYTES % (AUTO) 13.1 % (3.0-13.0); NEUTROPHILS % (AUTO) 47.6 % (40.0-77.0); PLATELET COUNT (AUTO) 55 K/uL (130-400); RED BLOOD CELL COUNT(AUTO) 3.27 MIL/uL (4.50-6.20); WHITE BLOOD COUNT (AUTO) 6.4 K/uL (4.8-10.8)
[2020-12-01 05:54] LABS: ALBUMIN 2.9 g/dL (3.5-5.0); CREATININE 4.9 mg/dL (0.5-1.5); TOTAL PROTEIN, SERUM 6.6 g/dL (6.0-8.3)
[2020-12-01 08:00] VITALS: BP 133/71
[2020-12-01] MEDS: **HM** VIT D3 50MCG PO SCH (09:00)
[2020-12-01] MEDS: ENTRESTO PO SCH ×2 (09:00→21:00)
[2020-12-01] MEDS: VIT D3 2000 UNIT PO SCH (09:00)
[2020-12-01] MEDS: METOPROLOL SUCCINATE 50 MG TAB.SR.24H PO SCH (10:10)
[2020-12-01] MEDS: LINAGLIPTIN 5 MG TABLET PO SCH (10:10)
[2020-12-01 11:44] VITALS: BP 127/72
[2020-12-01 15:52] VITALS: BP 138/70
[2020-12-01 20:20] VITALS: BP 133/73
[2020-12-01] MEDS: CETIRIZINE HCL 5 MG TABLET PO SCH (21:15)
[2020-12-01] MEDS: ATORVASTATIN 20 MG TABLET PO SCH (21:15)
[2020-12-02 00:20] VITALS: BP 135/78
[2020-12-02 04:24] VITALS: BP 139/76
[2020-12-02 06:05] LABS: BASOPHILS % (AUTO) 1.1 % (0.0-5.0); EOSINOPHILS % (AUTO) 10.8 % (0.0-8.0); HEMATOCRIT 32.8 % (42-54); LYMPHOCYTES % (AUTO) 24.3 % (21.0-51.0); MEAN CORPUSCULAR HEMOGLOBIN 32.4 pg (27.0-33.0); MEAN CORPUSCULAR HGB CONC 32.6 g/dL (32.0-36.0); MEAN CORPUSCULAR VOLUME 99.4 fL (79-99); MONOCYTES % (AUTO) 12.6 % (3.0-13.0); NEUTROPHILS % (AUTO) 50.8 % (40.0-77.0); PLATELET COUNT (AUTO) 74 K/uL (130-400); WHITE BLOOD COUNT (AUTO) 8.2 K/uL (4.8-10.8)
[2020-12-02 06:23] LABS: CREATININE 6.4 mg/dL (0.5-1.5); POTASSIUM 4.4 mmol/L (3.5-5.1)
[2020-12-02 08:12] VITALS: BP 135/74
[2020-12-02] MEDS: **HM** VIT D3 50MCG PO SCH (09:00)
[2020-12-02] MEDS: VIT D3 2000 UNIT PO SCH (09:00)
[2020-12-02] MEDS: LINAGLIPTIN 5 MG TABLET PO SCH (09:00)
[2020-12-02] MEDS: ENTRESTO PO SCH ×2 (09:35→21:00)
[2020-12-02] MEDS: METOPROLOL SUCCINATE 50 MG TAB.SR.24H PO SCH (09:35)
[2020-12-02 12:02] VITALS: BP 139/72
[2020-12-02 16:00] VITALS: BP 139/72
[2020-12-02] MEDS ORDERED: HEPARIN 10,000 UNIT/10ML (1,000 UNIT/ML) VIAL ONE (16:33)
[2020-12-02] MEDS ORDERED: IODIXANOL 320 MG/ML 100 ML VIAL ONE ×2 (16:34→17:21)
[2020-12-02] MEDS ORDERED: LIDOCAINE HCL 1% MDV 50ML VIAL ONE (16:34)
[2020-12-02] MEDS ORDERED: FENTANYL CITRATE PF 50 MCG/1 ML 2ML VIAL ONE (16:54)
[2020-12-02] MEDS ORDERED: MIDAZOLAM HCL 1 MG/ML 2ML VIAL ONE (16:54)
[2020-12-02] MEDS ORDERED: CEFAZOLIN SODIUM 1 GM VIAL ONE (17:16)
[2020-12-02] MEDS: CETIRIZINE HCL 5 MG TABLET PO SCH (20:03)
[2020-12-02] MEDS: ATORVASTATIN 20 MG TABLET PO SCH (20:03)
[2020-12-02 23:33] VITALS: BP 153/76
[2020-12-03 05:06] LABS: EOSINOPHILS % (AUTO) 11.4 % (0.0-8.0); HEMATOCRIT 32.5 % (42-54); LYMPHOCYTES % (AUTO) 25.8 % (21.0-51.0); MEAN CORPUSCULAR HEMOGLOBIN 32.5 pg (27.0-33.0); MEAN CORPUSCULAR HGB CONC 32.9 g/dL (32.0-36.0); MEAN CORPUSCULAR VOLUME 98.8 fL (79-99); MONOCYTES % (AUTO) 13.2 % (3.0-13.0); NEUTROPHILS % (AUTO) 48.5 % (40.0-77.0); PLATELET COUNT (AUTO) 87 K/uL (130-400); RED BLOOD CELL COUNT(AUTO) 3.29 MIL/uL (4.50-6.20); RED CELL DISTRIBUTION WIDTH 14.8 % (11.0-15.5); WHITE BLOOD COUNT (AUTO) 7.2 K/uL (4.8-10.8)
[2020-12-03 05:33] LABS: CREATININE 7.5 mg/dL (0.5-1.5); PHOSPHORUS 8.3 mg/dL (2.5-4.9); POTASSIUM 4.7 mmol/L (3.5-5.1)
[2020-12-03 06:09] VITALS: BP 124/77
[2020-12-03 07:36] VITALS: BP 140/80
[2020-12-03] MEDS: VIT D3 2000 UNIT PO SCH (09:00)
[2020-12-03] MEDS ORDERED: ASPIRIN 81MG CHEW TAB PO SCH (09:00)
[2020-12-03] MEDS: **HM** VIT D3 50MCG PO SCH (09:00)
[2020-12-03] MEDS: ENTRESTO PO SCH (09:00)
[2020-12-03 11:21] VITALS: BP 131/68
[2020-12-03 15:52] VITALS: BP 150/66
[2020-12-03] MEDS: METOPROLOL SUCCINATE 50 MG TAB.SR.24H PO SCH (15:55)
[2020-12-03] MEDS: LINAGLIPTIN 5 MG TABLET PO SCH (15:56)
[2020-12-03] MEDS ORDERED: ASPI-1005 PO (16:08)
[2020-12-04 08:14] LABS: HEPATITIS B CORE IGM Negative (Negative); HEPATITIS Bs ANTIGEN SCREEN P Negative (Negative)
== END 2020-12-03 18:53 | disposition home or self-care (01) | DRG 252 ==
LOC: EDH 23:21 → EDHIP 11-26 03:52 → 4AH 11-26 05:19 → 2AH 11-27 04:13 → 4CH 11-27 18:08
PROVIDERS: ADMIT Family Medicine; ATTEND Family Medicine
PROC: 5A1D70Z Performance of Urinary Filtration, Intermittent, Less than 6 Hours Per Day (ICD-10-PCS; 2020-11-26)
PROC: 02H633Z Insertion of Infusion Device into Right Atrium, Percutaneous Approach (ICD-10-PCS; 2020-11-26)
PROC: B548ZZA Ultrasonography of Superior Vena Cava, Guidance (ICD-10-PCS; 2020-11-26)
PROC: 5A1D70Z Performance of Urinary Filtration, Intermittent, Less than 6 Hours Per Day (ICD-10-PCS; 2020-11-28)
PROC: 0JH63XZ Insertion of Tunneled Vascular Access Device into Chest Subcutaneous Tissue and Fascia, Percutaneous Approach (ICD-10-PCS; 2020-11-28)
PROC: 02H633Z Insertion of Infusion Device into Right Atrium, Percutaneous Approach (ICD-10-PCS; 2020-11-28)
PROC: B51W1ZZ Fluoroscopy of Dialysis Shunt/Fistula using Low Osmolar Contrast (ICD-10-PCS; 2020-11-28)
PROC: 5A1D70Z Performance of Urinary Filtration, Intermittent, Less than 6 Hours Per Day (ICD-10-PCS; 2020-11-30)
PROC: 057F3DZ Dilation of Left Cephalic Vein with Intraluminal Device, Percutaneous Approach (ICD-10-PCS; principal; 2020-12-02)
PROC: B51N1ZZ Fluoroscopy of Left Upper Extremity Veins using Low Osmolar Contrast (ICD-10-PCS; 2020-12-02)
PROC: 5A1D70Z Performance of Urinary Filtration, Intermittent, Less than 6 Hours Per Day (ICD-10-PCS; 2020-12-03)
DX: T82.898A Other specified complication of vascular prosthetic devices, implants and grafts, initial encounter (principal); N18.6 End stage renal disease; J96.21 Acute and chronic respiratory failure with hypoxia; T82.510A Breakdown (mechanical) of surgically created arteriovenous fistula, initial encounter; I13.2 Hypertensive heart and chronic kidney disease with heart failure and with stage 5 chronic kidney disease, or end stage renal disease; I87.1 Compression of vein; I25.10 Atherosclerotic heart disease of native coronary artery without angina pectoris; E11.22 Type 2 diabetes mellitus with diabetic chronic kidney disease; I50.9 Heart failure, unspecified; I25.5 Ischemic cardiomyopathy; Z20.822 Contact with and (suspected) exposure to COVID-19; J44.9 Chronic obstructive pulmonary disease, unspecified; E87.5 Hyperkalemia; D64.9 Anemia, unspecified; Y71.2 Prosthetic and other implants, materials and accessory cardiovascular devices associated with adverse incidents; E78.00 Pure hypercholesterolemia, unspecified; E78.5 Hyperlipidemia, unspecified; I51.3 Intracardiac thrombosis, not elsewhere classified; K74.60 Unspecified cirrhosis of liver; Y83.2 Surgical operation with anastomosis, bypass or graft as the cause of abnormal reaction of the patient, or of later complication, without mention of misadventure at the time of the procedure; Y92.89 Other specified places as the place of occurrence of the external cause; Z99.2 Dependence on renal dialysis; Z95.1 Presence of aortocoronary bypass graft; Z83.3 Family history of diabetes mellitus; Z82.5 Family history of asthma and other chronic lower respiratory diseases; Z82.49 Family history of ischemic heart disease and other diseases of the circulatory system; Z82.3 Family history of stroke; Z82.0 Family history of epilepsy and other diseases of the nervous system
CPT/HCPCS: 36415; 36556; 36558; 36581; 36901; 36903; 71045; 77001; 80048; 80053; 80074; 82948; 83605; 83735; 83880; 84100; 84484; 85025; 85027; 85378; 85610; 85730; 86140; 87040; 87426; 90935; 93005; 99156; 99157; C1725; C1750; C1752; C1769; C1874; C1894; G0378; J0610; J0690; J1644; J1815; J1940; J2250; J2405; J3010; J3490; J7070; Q9967; U0003